=== PATIENT | male | born 1955 | race Caucasian/White ===

== ENCOUNTER → 2016-12-12 | Outpatient (CLI) | payer BC ==
[~2016-12-12] MED LIST: CYM/30 PO; GABA-113 PO; HYDR-3983 PO; OMEP40CA41 PO; SERT-234 PO; SILD100T PO; TRAZ50TA35 PO; WLLSR/200 PO
[2016-12-12 19:36] LABS: ALT/SGPT 32 U/L (12-78); AST/SGOT 15 U/L (15-37); BLOOD UREA NITROGEN 12 mg/dl (7-18); BUN/CREATININE RATIO 10.6 (10-20); CALCIUM 9.5 mg/dl (8.5-10.1); CARBON DIOXIDE 30 mmol/L (21-32); CHLORIDE 105 mmol/L (98-107); GLUCOSE 107 mg/dl (70-99); POTASSIUM 4.1 mmol/L (3.5-5.1); SODIUM 140 mmol/L (136-145)
[2016-12-12 19:38] LABS: ALKALINE PHOSPHATASE 204 U/L (45-117)
== END | disposition home or self-care (01) ==
LOC: C.LABSPEC 18:02
PROVIDERS: ATTEND Family Medicine
DX: M54.2 Cervicalgia (principal); M79.2 Neuralgia and neuritis, unspecified; R53.1 Weakness

== ENCOUNTER → 2017-11-03 | Outpatient (CLI) | payer OTHER ==
[~2017-11-03] MED LIST changes: -SERT-234 PO; -WLLSR/200 PO
[2017-11-03 18:32] LABS: BASO % 0.4 %; BASO ABS # 0.04 K/uL (0-0.2); EOS % 2.3 %; EOS ABS # 0.21 K/uL (0-0.5); HEMATOCRIT 43.7 % (42-52); HEMOGLOBIN 15.3 g/dL (14.0-18.0); IG# 0.02 K/uL (0.00-0.02); LYMPH ABS # 2.31 K/uL (1.2-3.4); MEAN CORPUSCULAR HEMOGLOBIN 32.2 pg (25-34); MEAN PLATELET VOLUME 10.6 fL (7.4-10.4); MONO % 7.8 %; MONO ABS # 0.72 K/uL (0.11-0.59); NEUT % 64.3 %; NEUT ABS # 5.93 K/uL (1.4-6.5); PLATELET COUNT 320 K/uL (130-400); RED CELL DISTRIBUTION WIDTH SD 43.7 fL (36.4-46.3); WHITE BLOOD COUNT 9.23 K/uL (4.8-10.8)
[2017-11-03 20:05] LABS: POTASSIUM 3.9 mmol/L (3.5-5.1); SODIUM 139 mmol/L (136-145)
[2017-11-03 20:10] LABS: AST/SGOT 15 U/L (15-37)
[2017-11-03 20:11] LABS: ALBUMIN 3.6 gm/dl (3.4-5.0); ALKALINE PHOSPHATASE 90 U/L (45-117); ALT/SGPT 39 U/L (12-78); BLOOD UREA NITROGEN 17 mg/dl (7-18); CALCIUM 8.6 mg/dl (8.5-10.1); CARBON DIOXIDE 27 mmol/L (21-32); CREATININE 1.28 mg/dl (0.60-1.40); GLUCOSE 125 mg/dl (70-99); TOTAL PROTEIN 7.3 gm/dl (6.4-8.2)
== END | disposition home or self-care (01) ==
LOC: C.LABSPEC 17:50
PROVIDERS: ATTEND Family Medicine
DX: R10.11 Right upper quadrant pain (principal)

== ENCOUNTER 2020-06-20 18:12 | Inpatient (IN) ==
[2020-06-20] MEDS ORDERED: guaiFENesin 600 MG TABCR PO STA (18:46)
[2020-06-20] MEDS ORDERED: ALBUTEROL HFA 8 GM INHALER INH ONE (18:46)
[2020-06-20] MEDS ORDERED: DEXAMETHASONE SOD INJ 10 MG/ML VIAL IV ONE (18:46)
[2020-06-20] MEDS ORDERED: SODIUM CHLORIDE 0.9% 1000ML 1,000 ML IV ONE (18:49)
[2020-06-20 18:54] LABS: Basophils # (auto) 0.04 K/uL (0-0.2); Basophils % (auto) 0.4 %; Eosinophils # (auto) 0.15 K/uL (0-0.5); Eosinophils % (auto) 1.7 %; Hematocrit (blood only) 48.1 % (42-52); Immature Granulocytes # (auto) 0.01 K/uL (0.00-0.02); Immature Granulocytes % (auto) 0.1 %; Mean Corpuscular Hemoglobin 31.6 pg (25-34); Mean Corpuscular Hgb Conc 33.3 g/dL (32-36); Mean Corpuscular Volume 94.9 fL (80-100); Mean Platelet Volume 10.1 fL (7.4-10.4); Monocytes # (auto) 0.76 K/uL (0.11-0.59); Monocytes % (auto) 8.5 %; Neutrophils # (auto) 4.65 K/uL (1.4-6.5); Neutrophils % (auto) 52.3 %; Platelet Count 391 K/uL (130-400); RDW Coefficient of Variation 13.5 % (11.5-14.5); RDW Standard Deviation 46.7 fL (36.4-46.3); Red Blood Count 5.07 M/uL (4.7-6.1); White Blood Count 8.91 K/uL (4.8-10.8)
[2020-06-20 19:06] LABS: Partial Thromboplastin Time 27.1 Seconds (21.0-31.0); Prothrombin Time 10.2 Seconds (9.0-12.0)
[2020-06-20 19:13] LABS: Alanine Aminotransferase 36 U/L (12-78); Albumin Level 3.8 gm/dl (3.4-5.0); Aspartate Aminotransferase 17 U/L (15-37); BUN Creatinine Ratio 17.7 (10-20); Blood Urea Nitrogen 23 mg/dl (7-18); Carbon Dioxide 29 mmol/L (21-32); Chloride 104 mmol/L (98-107); Creatinine Clr Calc Pharmacy 71.3 ml/min; Est GFR (African American) 69.7; Est GFR (Non-African American) 60.2; Glucose 96 mg/dl (70-99); Magnesium 2.3 mg/dl (1.8-2.4); Potassium 3.7 mmol/L (3.5-5.1); Sodium 139 mmol/L (136-145)
[2020-06-20 19:26] LABS: Albumin Globulin Ratio 0.9 (0.9-2); Alkaline Phosphatase 104 U/L (45-117); Bilirubin,Total 0.3 mg/dl (0.2-1); Globulin 4.3 gm/dl (2.5-4.0); NT Pro B Type Natriuretic Pept 49 pg/ml (0-900); Phosphorus 3.4 mg/dl (2.5-4.9); Total Protein 8.1 gm/dl (6.4-8.2); Troponin I < 0.015 ng/ml (0-0.045)
[2020-06-20 19:34] LABS: Base Excess VBG 1.8 mEq/L; Oxygen Saturation VBG 81.7 %; pH VBG 7.41 (7.36-7.41)
--- NOTE | 2020-06-20 19:40 | XRay Report ---
XR chest 1V portable HISTORY: 64 years-old Male stroke sx acute strokelike symptoms COMPARISON: Chest radiograph 09/30/2016 TECHNIQUE: Portable AP view of the chest FINDINGS: Cardiac silhouette is upper limits of normal in size. Lungs are hypoinflated. Mild bronchovascular cr owding with subsegmental bibasilar atelectasis. No pneumothorax, pleural effusion or overt pulmonary edema. Bones of the chest appear grossly intact. Cervical spinal fusion hardware. IMPRESSION: No acute process. ACT 112: Negative or not required by law. The above report was generated using voice recognition software. It may contain grammatical, syntax o r spelling errors. Electronically signed by: Alessio Ayala M.D. 06/20/2020 7:39 PM
[2020-06-20 19:43] LABS: T4 Free Thyroxine 1.18 ng/dl (0.8-1.6)
[2020-06-20 19:47] LABS: Lyme Ab IgG w/WB Rflx Negative (Negative); Lyme Ab IgM w/WB Rflx Negative (Negative)
--- NOTE | 2020-06-20 20:34 | Emergency Department Note ---
Impression & Plan Cerebrovascular accident, History of transient ischemic attack, Emphysema, unspecified ED Provider Note NAME: BRIA PEDERSON AGE: 64 SEX: M ARRIVES VIA: Walk-In INFORMANT: Patient, ED PROVIDER(S): Sandeep Gleason MD CHIEF COMPLAINT: Right facial weakness. Shortness of breath. PLAN: Disposition: Admit MEDICAL DECISION MAKING: The patient is a pleasant 64-year-old gentleman with a past medical history of TIA/CVA treated with TPA [facility] 2018, h/o afib s/p ablation, GERD, anxiety who presents emerged department accompanied by his concern for right-sided facial weakness and slurred speech that began yesterday afternoon which began abruptly and continued into today with question of some right hand weakness and fluctuating confusion. He also reports feeling a degree of shortness of breath and chest tightness. He denies any fevers, chills, cough, congestion, nausea, vomiting, diarrhea, urinary symptoms. He denies any known exposures to COVID-19. He denies any history of asthma though admits he has had imaging in the past that demonstrated evidence of COPD in the setting of a remote smoking history where he quit over 20 years ago. The patient's symptoms began yesterday afternoon he has not considered to be a TPA candidate and so stroke alert was not activated. On arrival the patient is anxious uncomfortable appearing with mild dyspnea but no acute distress, afebrile, blood pressure 170s/90s and vital signs otherwise stable. He appears clinically dry. He has a scant intermittent wheeze but is otherwise clear. He has subtle blunting of the right nasolabial fold at rest. However when asked to hold his lips together to blow out his cheeks the air leaks out of the left side of the mouth. He has no overt extremity weakness. His speech is fluent without dysarthria or word finding difficulty. He does exhibit mild confusion/difficulty with attention. EKG without overt acute ischemia. Chest x-ray negative for acute cardiopulmonary process. WBC, H/H and platelets within normal limits. VBG unremarkable. Chemistry without acidosis. BUN 23 consistent with the patient's clinically dry appearance. LFTs and electrolytes unremarkable. Troponin negative/undetectable. TSH within normal limits. Lyme screen was negative. COVID-19 RNA NAAT test was negative. CT of the head demonstrates remote lacunar infarcts in addition to 9 mm ill- defined hypodensity of the duran radiata/internal capsule left frontal lobe may reflect chronic microvascular ischemic disease versus age-indeterminate lacunar infarct. CTA head/neck demonstrates moderate luminal narrowing of the proximal aspect of the right M1 segment (similarly described in [facility] 2018 records) Additional mixed plaque of carotid bulbs and ICAs without high-grade stenosis. Note is made of development of carotid vertebrobasilar anastomosis with a persistent right-sided trigeminal artery. CTA of the chest negative for PE but demonstrates emphysema. Upon reevaluation the patient was feeling improved after IV fluid hydration, dexamethasone, Mucinex, albuterol MDI for bronchospastic component of COPD. His right lower facial droop is still present. But continues to speak fluently without dysarthria. I did review the findings with the patient and he and his partner at the bedside and they elaborated further that he has had stroke symptoms in the past and in fact was treated with TPA at [facility] and subsequently admitted to [facility]. He reports since then he admits he has been poorly compliant with recommendations [facility]. He admits that he was probably told to take an aspirin daily but he does not. Moreover he was told he should be on a statin but does not take it because they tend to give him muscle pains. He is agreeable with plan for admission. Of note, I was called to the patients room by RN for concern from the patient's partner that he was more confused than before and was sweating. At this time, he did appear slightly more confusion with worsened attention however he eventually was redirectable and would follow commands and answers questions, and was alert to place and situation. BSG 140s. EKG unchanged. MRI ordered. I reviewed with the patient and his partner that his symptoms are suspected to be related to evolving symptoms from patient's presume CVA. Given sx began yesterday afternoon, not a candidate for TPA. Case was discussed with Dr. Heaton, [facility] hospitalist, who will evaluate the patient for admission. Triage Nursing notes reviewed and agree them. Prior medical records reviewed Vital Signs: reviewed and remarkable for HTN. Differential diagnosis: Infection, dehydration, metabolic abnormality, hypo/hyperglycemia, electrolyte disturbance, anemia, hypoxia, cardiac sources, intracerebral event, toxicologic, neurologic, as well as other pathologies. ER treatment provided: See below. Diagnostics interpreted by me: ECG: Sinus rhythm with first-degree AV block, 80 bpm, no ectopy, no overt ST elevation or depression, QTC 426, QRS 76. Cardiac Monitoring: An order for continuous cardiac monitoring was placed and demonstrated Sinus rhythm with first-degree AV block, 80 bpm, no ectopy. Laboratory studies: See below Imaging studies: XR chest 1V portable HISTORY: 64 years-old Male stroke sx acute strokelike symptoms COMPARISON: Chest radiograph 09/30/2016 TECHNIQUE: Portable AP view of the chest FINDINGS: Cardiac silhouette is upper limits of normal in size. Lungs are hypoinflated. Mild bronchovascular crowding with subsegmental bibasilar atelectasis. No pneumothorax, pleural effusion or overt pulmonary edema. Bones of the chest appear grossly intact. Cervical spinal fusion hardware. IMPRESSION: No acute process. CT head/brain wo con CLINICAL HISTORY: 64 years-old Male with Stroke evaluation . Acutely altered mental status with strokelike symptoms. Acute shortness of breath. TECHNIQUE: Multiple axial CT images of the head were obtained without contrast. A dose lowering technique was utilized adhering to the principles of ALARA. COMPARISON: CTA of the head and neck of same day FINDINGS: No acute intracranial hemorrhage, midline shift, intracranial mass, hydr ocephalus, territorial ischemia or abnormal extra-axial collection. Age-related involutional changes. Remote appearing lacunar infarcts of the duran radiata, right caudate nucleus and internal capsules. Patchy white matter hypodensities suggest chronic microvascular ischemic disease. 9 mm ill-defined hypodensity of the duran radiata/internal capsule left frontal lobe. The calvarium is intact. The paranasal sinuses, mastoid air cells, and middle ear cavities are clear. IMPRESSION: 1. No acute intracranial hemorrhage or acute territorial infarct. 2. Remote appearing lacunar infarcts as above. 3. 9 mm ill-defined hypodensity of the duran radiata/internal capsule left frontal lobe may reflect chronic microvascular ischemic disease versus age- indeterminate lacunar infarct. -- CT angio neck with con, CT angio head w con CLINICAL HISTORY: 64 years-old Male with Stroke evaluation. Acute strokelike symptoms COMPARISON STUDY: Head CT of same day TECHNIQUE: Following the IV administration of 1 20 mL of Optiray 320, CT angiogram of the head and neck was performed from the aortic arch to the skull apex. Images are reviewed in the axial, sagittal, and coronal planes. 3-D MIPS images are created and assessed. IV contrast was administered without complication. All measurements were calculated based on NASCET criteria. A dose lowering technique was utilized adhering to the principles of ALARA. FINDINGS: The imaged opacified pulmonary artery is unremarkable. Mixed plaque of the thoracic aortic arch with patency of the innominate and imaged subclavian arteries. Common carotid arteries are patent. Moderate mixed plaque of the carotid bulbs and proximal internal carotid arteries without high-grade stenosis. Mild calcified plaque of the supraclinoid segments. Mild multifocal luminal narrowing of the middle and anterior cerebral arteries. Short segment area of moderate stenosis involves the proximal right M1 segment, image 387 series 9. Developmentally diminutive vertebral arteries are patent. Basilar artery is also patent. 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 Bilateral posterior cerebral arteries are patent. No aneurysm, dissection, high-grade stenosis or proximal branch occlusion. There is no abnormal intracranial enhancement. Remote lacunar infarcts of the basal ganglia. Cerebral venous sinuses are patent. Emphysema. No pneumothorax. Soft tissues of the neck are unremarkable. Multilevel degenerative changes of the cervical spine. No acute fracture. Anterior plate and screw fusion with corpectomy changes at C4-C6. IMPRESSION: 1. Short segment area of moderate luminal narrowing involves the proximal aspect of the right M1 segment. 2. Mixed plaque of the carotid bulbs and proximal internal carotid arteries without high-grade stenosis. 3. 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 4. Emphysema. -- CT angio chest PE protocol CT DOSE: 1592.65 mGy.cm HISTORY: 64 years-old Male with PE. Acute shortness of breath with chest pain TECHNIQUE: Multiple CTA images of the chest were obtained after the intravenous administration of 120 ml Optiray 320. Coronal and sagittal MIPS were obtained from the axial data set and were submitted for review. All measurements were obtained according to NASCET criteria. A dose lowering technique was utilized adhering to the principles of ALARA. COMPARISON: CTA chest 09/30/2014 FINDINGS: CTA: Mild cardiomegaly. No pericardial effusion. Moderate coronary artery calcifications. Mild thickening of the left ventricular apex may reflect remote myocardial infarction. There is no thoracic aortic aneurysm or dissection. Mixed plaque of the thoracic aorta with patency of the imaged great vessels. The pulmonary arterial tree is opacified to the level of the proximal subsegmental branches and demonstrates no filling defects to suggest thromboembolic disease. CT CHEST: Unremarkable thyroid. There are a few mildly prominent mediastinal and slightly enlarged hilar lymph nodes measuring up to 10 mm which are nonspecific, favored to be reactive. No pneumothorax or pleural effusion. Inferior lung bases are not imaged. Mild to moderate emphysema. No overt pulmonary edema or airspace consoli dation typical for pneumonia. There are no suspicious pulmonary nodules or masses. Indeterminate 4 mm solid nodule left lower lobe, image 145 series 6. 3 mm solid nodule of the lingula. Both of these nodules appear unchanged from comparison and are likely benign. Central airways are patent. No acute process of the imaged upper abdomen. Hepatic steatosis. Unremarkable soft tissues. Degenerative changes of the shoulders and spine. No acute fracture or suspicious bone lesion. IMPRESSION: 1. No evidence of pulmonary thromboembolic disease. 2. Mild cardiomegaly with moderate coronary artery calcifications. 3. Emphysema. 4. Prominent mediastinal with mildly enlarged hilar lymph nodes, likely krzysztof ctive. 5. Hepatic steatosis. Consultation(s): Case was discussed with Dr. Heaton, [facility] hospitalist, who will evaluate the patient for admission. HPI: The patient is a pleasant 64-year-old gentleman with a past medical history of TIA/CVA treated with TPA [facility] 2018, h/o afib s/p ablation, GERD, anxiety who presents emerged department accompanied by his concern for right-sided facial weakness and slurred speech that began yesterday afternoon which began abruptly and continued into today with question of some right hand weakness and fluctuating confusion. He also reports feeling a degree of shortness of breath and chest tightness. He denies any fevers, chills, cough, congestion, nausea, vomiting, diarrhea, urinary symptoms. He denies any known exposures to COVID-19. He denies any history of asthma though admits he has had imaging in the past that demonstrated evidence of COPD in the setting of a remote smoking history where he quit over 20 years ago. The patient's symptoms began yesterday afternoon he has not considered to be a TPA candidate and so stroke alert was not activated. ROS: See above HPI for pertinent positives & negatives. A total of 10 systems reviewed and were otherwise negative. PAST MEDICAL HISTORY:See Below PAST SURGICAL HISTORY:See Below FAMILY HISTORY:See Below SOCIAL HISTORY:See Below HOME MEDICATIONS:See Below ALLERGIES:See Below VITALS:See Below PHYSICAL EXAMINATION: GENERAL: Awake, alert, fatigued/anxious-appearing, in no distress HENT: Normocephalic, atraumatic. Oropharynx with dry mucous membranes and otherwise unremarkable. EYES: Normal conjunctiva. Sclera non-icteric. EOMI. No nystamgus. PEARRL. NECK: Supple. No nuchal rigidity. FROM. No JVD. RESPIRATORY: Scant intermittent wheeze otherwise clear to auscultation. CARDIAC: Regular rate, normal rhythm. Extremities warm and well perfused. Pulses equal. ABDOMEN: Soft, non-distended. No tenderness to palpation. No rebound or guarding. No masses. RECTAL: Deferred. MUSCULOSKELETAL: Chest examination reveals no tenderness. The back is symmetrical on inspection without obvious abnormality. There is no CVA tenderness to palpation. No joint edema. LOWER EXTREMITIES: Calves are equal size bilaterally and non-tender. No edema. No discoloration. NEURO: A&Ox3 though with subtle disorientation/poor attention but doses follow commands. Subtle blunting of the right nasolabial fold at rest. However when asked to hold his lips together to blow out his cheeks the air leaks out of the left side of the mouth. Speech is fluent. 5/5 strength and SILT x 4 extremities. Cerebellar function intact including [id number], alternating palms, [id number]. SKIN: No rash or jaundice noted. ED COURSE: Critical Care: I have personally spent greater than 35 minutes of critical care time in the direct management of this patient. This includes bedside care, interpretation of diagnostic studies, and testing, discussion with consultants, patient, and family members, and other required patient management activities. This 35 minutes is in excess of all separately billable procedures. Sandeep Gleason MD Past Med/Surg History Medical History Atrial fibrillation s/p ablation Autoimmune hepatitis CAD (coronary artery disease) stent to diagonal branch in 2011 Cerebrovascular accident s/p tPA in 04/2018 Depression Emphysema, unspecified Hyperlipidemia Peptic ulcer disease Surgical History History of appendectomy History of cervical spinal surgery History of cholecystectomy History of heart artery stent Social History Smoking Status: Former smoker Preferred Language: Monegasque Feels Safe at Home: Yes Allergies Allergies Allergy/AdvReac Type Severity Reaction Status Date / Time morphine AdvReac Unknown vomiting Unverified 06/20/20 21:24 Home Meds Home Medications Medication Instructions Recorded Confirmed duloxetine 60 mg PO DAILY 06/20/20 06/20/20 ibuprofen 400 mg PO Q6H PRN 06/20/20 06/20/20 omeprazole 40 mg PO DAILY 06/20/20 06/20/20 Results & Data (ED) Vital Signs Vital Signs - 24 hr 06/20/20 18:14 06/20/20 18:27 06/20/20 18:30 Temperature 37.2 C Temperature Source Oral Pulse Rate 94 H 80 84 Pulse Rate [Left] Pulse Rate from SpO2 Sensor 84 Pulse Rhythm Regular Pulse Strength Normal Respiratory Rate 16 18 18 Respiratory Effort / Characteristics Non-Labored Respiratory Depth Normal Respiratory Pattern Regular Blood Pressure 172/98 H 164/90 H Blood Pressure [Left Arm] Blood Pressure Mean 122 111 Blood Pressure Mean [Left Arm] Blood Pressure Position Sitting Blood Pressure Position [Left Arm] Pulse Oximetry 99 97 Oxygen Delivery Method Room Air Sepsis Recent Fever Within 48 Hours No Sepsis New/Unexplained Change in Mental Status N/A Sepsis Action Taken by Nursing No Action Required 06/20/20 18:40 06/20/20 18:45 06/20/20 18:50 Temperature Temperature Source Pulse Rate 84 82 Pulse Rate [Left] 82 Pulse Rate from SpO2 Sensor 85 82 Pulse Rhythm Pulse Strength Respiratory Rate 24 20 20 Respiratory Effort / Characteristics Spontaneous Respiratory Depth Respiratory Pattern Blood Pressure Blood Pressure [Left Arm] 164/90 H Blood Pressure Mean Blood Pressure Mean [Left Arm] 114 Blood Pressure Position Blood Pressure Position [Left Arm] Lying Pulse Oximetry 99 98 98 Oxygen Delivery Method Room Air Sepsis Recent Fever Within 48 Hours Sepsis New/Unexplained Change in Mental Status Sepsis Action Taken by Nursing 06/20/20 19:00 06/20/20 19:10 06/20/20 19:14 Temperature Temperature Source Pulse Rate 82 80 82 Pulse Rate [Left] Pulse Rate from SpO2 Sensor 83 80 80 Pulse Rhythm Pulse Strength Respiratory Rate 19 19 17 Respiratory Effort / Characteristics Respiratory Depth Respiratory Pattern Blood Pressure 151/102 H Blood Pressure [Left Arm] Blood Pressure Mean 116 Blood Pressure Mean [Left Arm] Blood Pressure Position Blood Pressure Position [Left Arm] Pulse Oximetry 98 98 99 Oxygen Delivery Method Sepsis Recent Fever Within 48 Hours Sepsis New/Unexplained Change in Mental Status Sepsis Action Taken by Nursing 06/20/20 19:20 06/20/20 19:30 06/20/20 19:40 Temperature Temperature Source Pulse Rate 78 79 78 Pulse Rate [Left] Pulse Rate from SpO2 Sensor 78 79 79 Pulse Rhythm Pulse Strength Respiratory Rate 20 16 19 Respiratory Effort / Characteristics Respiratory Depth Respiratory Pattern Blood Pressure 133/88 Blood Pressure [Left Arm] Blood Pressure Mean 102 Blood Pressure Mean [Left Arm] Blood Pressure Position Blood Pressure Position [Left Arm] Pulse Oximetry 97 98 97 Oxygen Delivery Method Sepsis Recent Fever Within 48 Hours Sepsis New/Unexplained Change in Mental Status Sepsis Action Taken by Nursing 06/20/20 19:50 06/20/20 20:00 06/20/20 20:01 Temperature Temperature Source Pulse Rate 76 76 76 Pulse Rate [Left] Pulse Rate from SpO2 Sensor 77 76 76 Pulse Rhythm Pulse Strength Respiratory Rate 19 18 20 Respiratory Effort / Characteristics Respiratory Depth Respiratory Pattern Blood Pressure 149/84 H Blood Pressure [Left Arm] Blood Pressure Mean 108 Blood Pressure Mean [Left Arm] Blood Pressure Position Blood Pressure Position [Left Arm] Pulse Oximetry 96 97 98 Oxygen Delivery Method Sepsis Recent Fever Within 48 Hours Sepsis New/Unexplained Change in Mental Status Sepsis Action Taken by Nursing 06/20/20 20:10 06/20/20 20:20 06/20/20 20:45 Temperature Temperature Source Pulse Rate 79 81 Pulse Rate [Left] Pulse Rate from SpO2 Sensor 79 80 70 Pulse Rhythm Pulse Strength Respiratory Rate 20 22 Respiratory Effort / Characteristics Respiratory Depth Respiratory Pattern Blood Pressure Blood Pressure [Left Arm] Blood Pressure Mean Blood Pressure Mean [Left Arm] Blood Pressure Position Blood Pressure Position [Left Arm] Pulse Oximetry 97 96 98 Oxygen Delivery Method Sepsis Recent Fever Within 48 Hours Sepsis New/Unexplained Change in Mental Status Sepsis Action Taken by Nursing 06/20/20 20:50 06/20/20 21:00 06/20/20 21:01 Temperature Temperature Source Pulse Rate 71 69 71 Pulse Rate [Left] Pulse Rate from SpO2 Sensor 71 70 72 Pulse Rhythm Pulse Strength Respiratory Rate 17 18 19 Respiratory Effort / Characteristics Respiratory Depth Respiratory Pattern Blood Pressure 139/84 Blood Pressure [Left Arm] Blood Pressure Mean 92 Blood Pressure Mean [Left Arm] Blood Pressure Position Blood Pressure Position [Left Arm] Pulse Oximetry 99 97 98 Oxygen Delivery Method Sepsis Recent Fever Within 48 Hours Sepsis New/Unexplained Change in Mental Status Sepsis Action Taken by Nursing 06/20/20 21:10 06/20/20 21:20 06/20/20 21:30 Temperature Temperature Source Pulse Rate 70 72 69 Pulse Rate [Left] Pulse Rate from SpO2 Sensor 70 72 70 Pulse Rhythm Pulse Strength Respiratory Rate 20 24 21 Respiratory Effort / Characteristics Respiratory Depth Respiratory Pattern Blood Pressure 150/96 H Blood Pressure [Left Arm] Blood Pressure Mean 125 Blood Pressure Mean [Left Arm] Blood Pressure Position Blood Pressure Position [Left Arm] Pulse Oximetry 97 97 97 Oxygen Delivery Method Sepsis Recent Fever Within 48 Hours Sepsis New/Unexplained Change in Mental Status Sepsis Action Taken by Nursing 06/20/20 21:31 06/20/20 21:40 06/20/20 21:50 Temperature Temperature Source Pulse Rate 69 71 74 Pulse Rate [Left] Pulse Rate from SpO2 Sensor 69 72 75 Pulse Rhythm Pulse Strength Respiratory Rate 19 19 22 Respiratory Effort / Characteristics Respiratory Depth Respiratory Pattern Blood Pressure Blood Pressure [Left Arm] Blood Pressure Mean Blood Pressure Mean [Left Arm] Blood Pressure Position Blood Pressure Position [Left Arm] Pulse Oximetry 97 97 98 Oxygen Delivery Method Sepsis Recent Fever Within 48 Hours Sepsis New/Unexplained Change in Mental Status Sepsis Action Taken by Nursing 06/20/20 22:00 06/20/20 22:01 06/20/20 22:10 Temperature Temperature Source Pulse Rate 75 73 69 Pulse Rate [Left] Pulse Rate from SpO2 Sensor 76 74 69 Pulse Rhythm Pulse Strength Respiratory Rate 21 20 18 Respiratory Effort / Characteristics Respiratory Depth Respiratory Pattern Blood Pressure 158/116 H Blood Pressure [Left Arm] Blood Pressure Mean 138 Blood Pressure Mean [Left Arm] Blood Pressure Position Blood Pressure Position [Left Arm] Pulse Oximetry 98 98 98 Oxygen Delivery Method Sepsis Recent Fever Within 48 Hours Sepsis New/Unexplained Change in Mental Status Sepsis Action Taken by Nursing 06/20/20 22:30 06/20/20 22:31 06/20/20 23:00 Temperature Temperature Source Pulse Rate 74 71 68 Pulse Rate [Left] Pulse Rate from SpO2 Sensor 74 71 69 Pulse Rhythm Pulse Strength Respiratory Rate 20 17 20 Respiratory Effort / Characteristics Respiratory Depth Respiratory Pattern Blood Pressure 159/111 H 151/89 H Blood Pressure [Left Arm] Blood Pressure Mean 119 104 Blood Pressure Mean [Left Arm] Blood Pressure Position Blood Pressure Position [Left Arm] Pulse Oximetry 98 98 98 Oxygen Delivery Method Sepsis Recent Fever Within 48 Hours Sepsis New/Unexplained Change in Mental Status Sepsis Action Taken by Nursing 06/20/20 23:01 Temperature Temperature Source Pulse Rate 71 Pulse Rate [Left] Pulse Rate from SpO2 Sensor 72 Pulse Rhythm Pulse Strength Respiratory Rate 22 Respiratory Effort / Characteristics Respiratory Depth Respiratory Pattern Blood Pressure Blood Pressure [Left Arm] Blood Pressure Mean Blood Pressure Mean [Left Arm] Blood Pressure Position Blood Pressure Position [Left Arm] Pulse Oximetry 98 Oxygen Delivery Method Sepsis Recent Fever Within 48 Hours Sepsis New/Unexplained Change in Mental Status Sepsis Action Taken by Nursing Laboratory Data Attestation: I reviewed the patient's lab results. Result diagrams: 06/20/20 18:30 06/20/20 18:30 Lab Results 06/20/20 06/20/20 06/20/20 Range/Units 18:30 18:30 18:30 WBC 8.91 (4.8-10.8) K/uL RBC 5.07 (4.7-6.1) M/uL Hgb 16.0 (14.0-18.0) g/dL Hct 48.1 (42-52) % MCV 94.9 (80-100) fL MCH 31.6 (25-34) pg MCHC 33.3 (32-36) g/dL RDW Std Deviation 46.7 H (36.4-46.3) fL RDW Coeff of Karli 13.5 (11.5-14.5) % Plt Count 391 (130-400) K/uL MPV 10.1 (7.4-10.4) fL Immature Gran % (Auto) 0.1 % Neut % (Auto) 52.3 % Lymph % (Auto) 37.0 % [place] % (Auto) 8.5 % Eos % (Auto) 1.7 % Baso % (Auto) 0.4 % Neut # (Auto) 4.65 (1.4-6.5) K/uL Lymph # (Auto) 3.30 (1.2-3.4) K/uL [place] # (Auto) 0.76 H (0.11-0.59) K/uL Eos # (Auto) 0.15 (0-0.5) K/uL Baso # (Auto) 0.04 (0-0.2) K/uL Immature Gran # (Auto) 0.01 (0.00-0.02) K/uL PT 10.2 (9.0-12.0) Seconds INR 1.0 (0.9-1.1) APTT 27.1 (21.0-31.0) Seconds PTT Ratio 1.0 VBG pH (7.36-7.41) VBG pCO2 (38-50) mmHg VBG pO2 mmHg VBG HCO3 mmol/L VBG O2 Saturation % VBG Base Excess mEq/L Barometric Pressure mm/Hg Sodium 139 (136-145) mmol/L Potassium 3.7 (3.5-5.1) mmol/L Chloride 104 (98-107) mmol/L Carbon Dioxide 29 (21-32) mmol/L Anion Gap 5.0 (3-11) BUN 23 H (7-18) mg/dl Creatinine 1.27 (0.6-1.4) mg/dl Est Cr Clr Drug Dosing 71.3 ml/min Est GFR ( Amer) 69.7 Est GFR (Non-Af Amer) 60.2 BUN/Creatinine Ratio 17.7 (10-20) Glucose 96 (70-99) mg/dl POC Glucose (70-99) mg/dl Calcium 9.0 (8.5-10.1) mg/dl Phosphorus 3.4 (2.5-4.9) mg/dl Magnesium 2.3 (1.8-2.4) mg/dl Total Bilirubin 0.3 (0.2-1) mg/dl AST 17 (15-37) U/L ALT 36 (12-78) U/L Alkaline Phosphatase 104 (45-117) U/L Troponin I < 0.015 (0-0.045) ng/ml NT-Pro-B Natriuret Pep 49 (0-900) pg/ml Total Protein 8.1 (6.4-8.2) gm/dl Albumin 3.8 (3.4-5.0) gm/dl Globulin 4.3 H (2.5-4.0) gm/dl Albumin/Globulin Ratio 0.9 (0.9-2) TSH 4.520 H (0.300-4.500) uIu/ml Free T4 1.18 (0.8-1.6) ng/dl Specimen Hemolysis Ethyl Alcohol mg/dL (0-3) mg/dl Lyme Disease IgG Ab (Negative) Lyme Disease IgM Ab (Negative) COVID-19 Eval Order SARS-CoV-2, RNA, NAAT (NEGATIVE) 06/20/20 06/20/20 06/20/20 Range/Units 18:30 18:35 19:10 WBC (4.8-10.8) K/uL RBC (4.7-6.1) M/uL Hgb (14.0-18.0) g/dL Hct (42-52) % MCV (80-100) fL MCH (25-34) pg MCHC (32-36) g/dL RDW Std Deviation (36.4-46.3) fL RDW Coeff of Karli (11.5-14.5) % Plt Count (130-400) K/uL MPV (7.4-10.4) fL Immature Gran % (Auto) % Neut % (Auto) % Lymph % (Auto) % [place] % (Auto) % Eos % (Auto) % Baso % (Auto) % Neut # (Auto) (1.4-6.5) K/uL Lymph # (Auto) (1.2-3.4) K/uL [place] # (Auto) (0.11-0.59) K/uL Eos # (Auto) (0-0.5) K/uL Baso # (Auto) (0-0.2) K/uL Immature Gran # (Auto) (0.00-0.02) K/uL PT (9.0-12.0) Seconds INR (0.9-1.1) APTT (21.0-31.0) Seconds PTT Ratio VBG pH (7.36-7.41) VBG pCO2 (38-50) mmHg VBG pO2 mmHg VBG HCO3 mmol/L VBG O2 Saturation % VBG Base Excess mEq/L Barometric Pressure mm/Hg Sodium (136-145) mmol/L Potassium (3.5-5.1) mmol/L Chloride (98-107) mmol/L Carbon Dioxide (21-32) mmol/L Anion Gap (3-11) BUN (7-18) mg/dl Creatinine (0.6-1.4) mg/dl Est Cr Clr Drug Dosing ml/min Est GFR ( Amer) Est GFR (Non-Af Amer) BUN/Creatinine Ratio (10-20) Glucose (70-99) mg/dl POC Glucose 86 (70-99) mg/dl Calcium (8.5-10.1) mg/dl Phosphorus (2.5-4.9) mg/dl Magnesium (1.8-2.4) mg/dl Total Bilirubin (0.2-1) mg/dl AST (15-37) U/L ALT (12-78) U/L Alkaline Phosphatase (45-117) U/L Troponin I (0-0.045) ng/ml NT-Pro-B Natriuret Pep (0-900) pg/ml Total Protein (6.4-8.2) gm/dl Albumin (3.4-5.0) gm/dl Globulin (2.5-4.0) gm/dl Albumin/Globulin Ratio (0.9-2) TSH (0.300-4.500) uIu/ml Free T4 (0.8-1.6) ng/dl Specimen Hemolysis Ethyl Alcohol mg/dL (0-3) mg/dl Lyme Disease IgG Ab Negative (Negative) Lyme Disease IgM Ab Negative (Negative) COVID-19 Eval Order [facility] SARS-CoV-2, RNA, NAAT (NEGATIVE) 06/20/20 06/20/20 06/20/20 Range/Units 19:10 19:12 19:12 WBC (4.8-10.8) K/uL RBC (4.7-6.1) M/uL Hgb (14.0-18.0) g/dL Hct (42-52) % MCV (80-100) fL MCH (25-34) pg MCHC (32-36) g/dL RDW Std Deviation (36.4-46.3) fL RDW Coeff of Karli (11.5-14.5) % Plt Count (130-400) K/uL MPV (7.4-10.4) fL Immature Gran % (Auto) % Neut % (Auto) % Lymph % (Auto) % [place] % (Auto) % Eos % (Auto) % Baso % (Auto) % Neut # (Auto) (1.4-6.5) K/uL Lymph # (Auto) (1.2-3.4) K/uL [place] # (Auto) (0.11-0.59) K/uL Eos # (Auto) (0-0.5) K/uL Baso # (Auto) (0-0.2) K/uL Immature Gran # (Auto) (0.00-0.02) K/uL PT (9.0-12.0) Seconds INR (0.9-1.1) APTT (21.0-31.0) Seconds PTT Ratio VBG pH 7.41 (7.36-7.41) VBG pCO2 44 (38-50) mmHg VBG pO2 48 mmHg VBG HCO3 27 mmol/L VBG O2 Saturation 81.7 % VBG Base Excess 1.8 mEq/L Barometric Pressure 740.3 mm/Hg Sodium (136-145) mmol/L Potassium (3.5-5.1) mmol/L Chloride (98-107) mmol/L Carbon Dioxide (21-32) mmol/L Anion Gap (3-11) BUN (7-18) mg/dl Creatinine (0.6-1.4) mg/dl Est Cr Clr Drug Dosing ml/min Est GFR ( Amer) Est GFR (Non-Af Amer) BUN/Creatinine Ratio (10-20) Glucose (70-99) mg/dl POC Glucose (70-99) mg/dl Calcium (8.5-10.1) mg/dl Phosphorus (2.5-4.9) mg/dl Magnesium (1.8-2.4) mg/dl Total Bilirubin (0.2-1) mg/dl AST (15-37) U/L ALT (12-78) U/L Alkaline Phosphatase (45-117) U/L Troponin I (0-0.045) ng/ml NT-Pro-B Natriuret Pep (0-900) pg/ml Total Protein (6.4-8.2) gm/dl Albumin (3.4-5.0) gm/dl Globulin (2.5-4.0) gm/dl Albumin/Globulin Ratio (0.9-2) TSH (0.300-4.500) uIu/ml Free T4 (0.8-1.6) ng/dl Specimen Hemolysis Ethyl Alcohol mg/dL < 3.0 (0-3) mg/dl Lyme Disease IgG Ab (Negative) Lyme Disease IgM Ab (Negative) COVID-19 Eval Order SARS-CoV-2, RNA, NAAT NEGATIVE (NEGATIVE) 06/20/20 Range/Units 22:57 WBC (4.8-10.8) K/uL RBC (4.7-6.1) M/uL Hgb (14.0-18.0) g/dL Hct (42-52) % MCV (80-100) fL MCH (25-34) pg MCHC (32-36) g/dL RDW Std Deviation (36.4-46.3) fL RDW Coeff of Karli (11.5-14.5) % Plt Count (130-400) K/uL MPV (7.4-10.4) fL Immature Gran % (Auto) % Neut % (Auto) % Lymph % (Auto) % [place] % (Auto) % Eos % (Auto) % Baso % (Auto) % Neut # (Auto) (1.4-6.5) K/uL Lymph # (Auto) (1.2-3.4) K/uL [place] # (Auto) (0.11-0.59) K/uL Eos # (Auto) (0-0.5) K/uL Baso # (Auto) (0-0.2) K/uL Immature Gran # (Auto) (0.00-0.02) K/uL PT (9.0-12.0) Seconds INR (0.9-1.1) APTT (21.0-31.0) Seconds PTT Ratio VBG pH (7.36-7.41) VBG pCO2 (38-50) mmHg VBG pO2 mmHg VBG HCO3 mmol/L VBG O2 Saturation % VBG Base Excess mEq/L Barometric Pressure mm/Hg Sodium (136-145) mmol/L Potassium (3.5-5.1) mmol/L Chloride (98-107) mmol/L Carbon Dioxide (21-32) mmol/L Anion Gap (3-11) BUN (7-18) mg/dl Creatinine (0.6-1.4) mg/dl Est Cr Clr Drug Dosing ml/min Est GFR ( Amer) Est GFR (Non-Af Amer) BUN/Creatinine Ratio (10-20) Glucose (70-99) mg/dl POC Glucose 147 H (70-99) mg/dl Calcium (8.5-10.1) mg/dl Phosphorus (2.5-4.9) mg/dl Magnesium (1.8-2.4) mg/dl Total Bilirubin (0.2-1) mg/dl AST (15-37) U/L ALT (12-78) U/L Alkaline Phosphatase (45-117) U/L Troponin I (0-0.045) ng/ml NT-Pro-B Natriuret Pep (0-900) pg/ml Total Protein (6.4-8.2) gm/dl Albumin (3.4-5.0) gm/dl Globulin (2.5-4.0) gm/dl Albumin/Globulin Ratio (0.9-2) TSH (0.300-4.500) uIu/ml Free T4 (0.8-1.6) ng/dl Specimen Hemolysis Ethyl Alcohol mg/dL (0-3) mg/dl Lyme Disease IgG Ab (Negative) Lyme Disease IgM Ab (Negative) COVID-19 Eval Order SARS-CoV-2, RNA, NAAT (NEGATIVE) Administered Medications Discontinued Medications Albuterol (Albuterol Hfa 8 Gm Inhaler) 2 puffs INH NOW ONE Stop: 06/20/20 18:47 Last Admin: 06/20/20 19:08 Dose: 2 puffs Documented by: [id number] Dexamethasone (Dexamethasone Sod Inj 10 Mg/Ml Vial) 10 mg IV NOW ONE Stop: 06/20/20 18:47 Last Admin: 06/20/20 19:08 Dose: 10 mg Documented by: [id number] Gadobutrol (Gadobutrol 65ml Vial) 10.6 ml IV ONCE ONE Stop: 06/21/20 00:44 Last Admin: 06/21/20 00:25 Dose: 10.6 ml Documented by: [id number] Guaifenesin (Guaifenesin 600 Mg Tabcr) 600 mg PO NOW STA Stop: 06/20/20 18:47 Last Admin: 06/20/20 19:08 Dose: 600 mg Documented by: [id number] Sodium Chloride (Nss 1000ml) 1,000 mls @ 999 mls/hr IV .Q1H1M ONE Stop: 06/20/20 19:49 Last Infusion: 06/20/20 20:32 Dose: 0 mls/hr Documented by: [id number] Admin: 11/17/20 19:08 Dose: 999 mls/hr Documented by: [id number] Ioversol (Optiray 320 125ml) 120 ml IV ONCE ONE Stop: 06/20/20 20:46 Last Admin: 06/20/20 20:45 Dose: 120 ml Documented by: [id number] Discharge Plan Visit Data Chief Complaint: Stroke/CVA Symptoms Stated Complaint: RT SIDED FACIAL DROOPING, LT ARM PAIN, CHEST PAIN ED Provider: Sandeep Gleason Discharge Problem: Cerebrovascular accident, History of transient ischemic attack, Emphysema, unspecified Patient Disposition: Admitted As Inpatient Discharge Instructions Interventions: ED Discharge Assessment Last Done: 06/21/20 00:02
[2020-06-20] MEDS ORDERED: OPTIRAY 320 125ml IV ONE (20:45)
--- NOTE | 2020-06-20 20:51 | CT Scan Report ---
CT head/brain wo con CLINICAL HISTORY: 64 years-old Male with Stroke evaluation . Acutely altered mental status with stro kelike symptoms. Acute shortness of breath. TECHNIQUE: Multiple axial CT images of the head were obtained without contrast. A dose lowering tech nique was utilized adhering to the principles of ALARA. COMPARISON: CTA of the head and neck of same day FINDINGS: No acute intracranial hemorrhage, midline shift, intracranial mass, hydrocephalus, territorial ischem ia or abnormal extra-axial collection. Age-related involutional changes. Remote appearing lacunar inf arcts of the duran radiata, right caudate nucleus and internal capsules. Patchy white matter hypoden sities suggest chronic microvascular ischemic disease. 9 mm ill-defined hypodensity of the duran rad iata/internal capsule left frontal lobe. The calvarium is intact. The paranasal sinuses, mastoid air cells, and middle ear cavities are clear . IMPRESSION: 1. No acute intracranial hemorrhage or acute territorial infarct. 2. Remote appearing lacunar infarcts as above. 3. 9 mm ill-defined hypodensity of the duran radiata/internal capsule left frontal lobe may reflect chronic microvascular ischemic disease versus age-indeterminate lacunar infarct. ACT 112: Negative or not required by law. The above report was generated using voice recognition software. It may contain grammatical, syntax o r spelling errors. Electronically signed by: Alessio Ayala M.D. 06/20/2020 8:50 PM
--- NOTE | 2020-06-20 21:07 | CT Scan Report ---
CT angio neck with con, CT angio head w con CLINICAL HISTORY: 64 years-old Male with Stroke evaluation. Acute strokelike symptoms COMPARISON STUDY: Head CT of same day TECHNIQUE: Following the IV administration of 1 20 mL of Optiray 320, CT angiogram of the head and ne ck was performed from the aortic arch to the skull apex. Images are reviewed in the axial, sagittal, and coronal planes. 3-D MIPS images are created and assessed. IV contrast was administered without co mplication. All measurements were calculated based on NASCET criteria. A dose lowering technique was utilized adhering to the principles of ALARA. FINDINGS: The imaged opacified pulmonary artery is unremarkable. Mixed plaque of the thoracic aortic arch with patency of the innominate and imaged subclavian arteries. Common carotid arteries are patent. Moderat e mixed plaque of the carotid bulbs and proximal internal carotid arteries without high-grade stenosi s. Mild calcified plaque of the supraclinoid segments. Mild multifocal luminal narrowing of the middl e and anterior cerebral arteries. Short segment area of moderate stenosis involves the proximal right M1 segment, image 387 series 9. Developmentally diminutive vertebral arteries are patent. Basilar artery is also patent. 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 Bilateral posterior cereb ral arteries are patent. No aneurysm, dissection, high-grade stenosis or proximal branch occlusion. T here is no abnormal intracranial enhancement. Remote lacunar infarcts of the basal ganglia. Cerebral venous sinuses are patent. Emphysema. No pneumothorax. Soft tissues of the neck are unremarkable. Multilevel degenerative change s of the cervical spine. No acute fracture. Anterior plate and screw fusion with corpectomy changes a t C4-C6. IMPRESSION: 1. Short segment area of moderate luminal narrowing involves the proximal aspect of the right M1 segm ent. 2. Mixed plaque of the carotid bulbs and proximal internal carotid arteries without high-grade stenos is. 3. 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 4. Emphysema. ACT 112: Negative or not required by law. The above report was generated using voice recognition software. It may contain grammatical, syntax o r spelling errors. Electronically signed by: Alessio Ayala M.D. 06/20/2020 9:06 PM
--- NOTE | 2020-06-20 21:14 | CT Scan Report ---
CT angio chest PE protocol CT DOSE: 1592.65 mGy.cm HISTORY: 64 years-old Male with PE. Acute shortness of breath with chest pain TECHNIQUE: Multiple CTA images of the chest were obtained after the intravenous administration of 120 ml Optiray 320. Coronal and sagittal MIPS were obtained from the axial data set and were submitted for review. All measurements were obtained according to NASCET criteria. A dose lowering technique w as utilized adhering to the principles of ALARA. COMPARISON: CTA chest 09/30/2014 FINDINGS: CTA: Mild cardiomegaly. No pericardial effusion. Moderate coronary artery calcifications. Mild thickening of the left ventricular apex may reflect remote myocardial infarction. There is no thoracic aortic an eurysm or dissection. Mixed plaque of the thoracic aorta with patency of the imaged great vessels. Th e pulmonary arterial tree is opacified to the level of the proximal subsegmental branches and demonst rates no filling defects to suggest thromboembolic disease. CT CHEST: Unremarkable thyroid. There are a few mildly prominent mediastinal and slightly enlarged hilar lymph nodes measuring up to 10 mm which are nonspecific, favored to be reactive. No pneumothorax or pleural effusion. Inferior lung bases are not imaged. Mild to moderate emphysema. No overt pulmonary edema o r airspace consolidation typical for pneumonia. There are no suspicious pulmonary nodules or masses. Indeterminate 4 mm solid nodule left lower lobe, image 145 series 6. 3 mm solid nodule of the lingula . Both of these nodules appear unchanged from comparison and are likely benign. Central airways are p atent. No acute process of the imaged upper abdomen. Hepatic steatosis. Unremarkable soft tissues. De generative changes of the shoulders and spine. No acute fracture or suspicious bone lesion. IMPRESSION: 1. No evidence of pulmonary thromboembolic disease. 2. Mild cardiomegaly with moderate coronary artery calcifications. 3. Emphysema. 4. Prominent mediastinal with mildly enlarged hilar lymph nodes, likely reactive. 5. Hepatic steatosis. ACT 112: Negative or not required by law. The above report was generated using voice recognition software. It may contain grammatical, syntax o r spelling errors. Electronically signed by: Alessio Ayala M.D. 06/20/2020 9:13 PM
[2020-06-20] MEDS ORDERED: SODIUM CHLORIDE 0.9% 1000ML 1,000 ML IV SCH (23:00)
--- NOTE | 2020-06-20 23:36 | History & Physical Report ---
Date of Service June 20, 2020 Assessment & Plan (1) Stroke-like symptoms: 64yo C male with history of prior CVA s.p tPA administration in 04/2018 presenting with >24 hours of neurological symptoms - right facial droop, confusion, slurred speech and RUE weakness. CT head with no acute hemorrhage or infarct, CTA head and neck with short segment area of moderate luminal narrowing involving the proximal aspect of right RI as well as mixed plaque of the carotid bulbs without high grade stenosis. ASA and Plavix administered in ER. -Admit to PCU -Neuro checks, NIHSS per protocol -Dysphagia screening -MRI obtained - read pending -Check 2D echo -check lipid panel and HgbA1C for risk stratification -Neurology consultation appreciated -Initiate Crestor 20mg po daily - patient with reported myalgias associated with Atorvastatin -Plavix 75mg po daily -ASA 81mg po daily -Patient with history of atrial fibrillation s/p ablation - currently in NSR - telemetry monitoring, ?outpatient monitoring to assess for AF Present on Admission?: Yes (2) CAD (coronary artery disease): History of CAD s/p stent placement. Troponin x 1 negative, EKG with no acute ischemic changes -ASA and Crestor as above -Patient may benefit from BB and Nathan/ARB therapy Present on Admission?: Yes (3) Depression: Chronic -Continue Duloxetine 60mg po daily Present on Admission?: Yes (4) Peptic ulcer disease: Chronic -Protonix 40mg po daily. Patient on Omeprazole at home Present on Admission?: Yes (5) Hyperlipidemia: Chronic -Check lipid panel -Crestor as above Present on Admission?: Yes (6) Autoimmune hepatitis: Patient with remote history of AIH, possible PBC. He was reportedly on Imuran then Cell Cept. Issues are currently stable and patient is not on any medications. He was being followed at [facility] in the past. LFTs WNL -Check ammonia level F/E/N - Heplock. Electrolytes WNL. Heart healthy diet as tolerated after dysphagia screening Ppx - SCDs Code - Full Dispo - Admit to PCU POC - Peg - [phone] Present on Admission?: Yes History of Present Illness Chief Complaint: stroke-like symptoms Primary Care Provider: Ashley Ross Faraz Han is a 64yo male with history of prior TIA/CVA, CAD s/p stent placement presenting with right facial droop, AMS x 1 day. Patient was visiting his daughter yesterday 06/19/20 and she noted that he was "off" - less interactive, slightly confused. He was on a video chat with his mother who noted a right facial droop and slurred speech. Symptoms persisted throughout the day, progressed to involve weakness in his right hand as well as not using his right arm and worsening confusion which ultimately prompted him to come to the ER. Dominic's girlfriend reports he was having some left sided chest pain as well and a headache prior to arrival. Patient presently with no complaints. He denies fever/chills/cough/SOB/chest pain/nausea/vomiting/diarrhea or constipation. No additional complaints at this time. ER Course: ASA 324, Plavix 300mg, ALbuterol, Dexamethasone 10mg IV, Guaifenesn 600mg, NSS Allergies Allergy/AdvReac Type Severity Reaction Status Date / Time morphine AdvReac Unknown vomiting Unverified 06/20/20 21:24 Home Medications Medication Instructions Recorded Confirmed Type duloxetine 60 mg PO DAILY 06/20/20 06/20/20 History ibuprofen 400 mg PO Q6H PRN 06/20/20 06/20/20 History omeprazole 40 mg PO DAILY 06/20/20 06/20/20 History Past Med/Surg History Medical History (Updated 06/21/20 @ 00:21 by Nida Heaton DO) Atrial fibrillation s/p ablation Autoimmune hepatitis CAD (coronary artery disease) stent to diagonal branch in 2011 Cerebrovascular accident s/p tPA in 04/2018 Depression Emphysema, unspecified Hyperlipidemia Peptic ulcer disease Surgical History (Updated 06/21/20 @ 00:00 by Nida Heaton DO) History of appendectomy History of cervical spinal surgery History of cholecystectomy History of heart artery stent Social History Smoking Status: Former smoker Preferred Language: Bahraini Feels Safe at Home: Yes Review of Systems Review of Systems: All systems reviewed & are unremarkable except as noted in HPI & below Physical Exam Physical Exam: General: patient resting comfortably, NAD, non-toxic in appearance, AA&O to person, location Skin: warm, dry, intact, no rashes or lesions HEENT: NC/AT, PERRL, EOMI, anicteric sclera, conjunctiva without injection, external ear normal to inspection and nontender, nares patent, moist mucus membranes, dentition intact, no oropharyngeal lesions, neck supple, trachea midline, no LAD, no thyromegaly, no JVD Heart: +S1/S2, regular, no m/r/g Lungs: equal air entry bilaterally, no rales/rhonchi/wheezes Abd: +BS, soft, NT/ND, no masses/organomegaly/ascites Ext: warm, 2+ pulses in UE/LE bilaterally, no clubbing/cyanosis or edema Neuro: patient awake, answering questions with some delay in word finding, slow speech clear and appropriate, +flattening of right nasolabial fold, mild right facial droop, +mild weakness of RUE 4/5 on die cast operator, flexion and extension of arm, +mild drift, strength 5/5 in bilateral LE, some difficulty with rapid alternating movement and finger to nose Results & Data Results & Data ([facility]) Vital Signs (Past 12 Hours) Vital Signs Temp Pulse Pulse Resp BP BP Pulse Ox 06/20/20 22:10 69 18 98 06/20/20 22:01 73 20 98 06/20/20 22:00 75 21 158/116 H 98 06/20/20 21:50 74 22 98 06/20/20 21:40 71 19 97 06/20/20 21:31 69 19 97 06/20/20 21:30 69 21 150/96 H 97 06/20/20 21:20 72 24 97 06/20/20 21:10 70 20 97 06/20/20 21:01 71 19 98 06/20/20 21:00 69 18 139/84 97 06/20/20 20:50 71 17 99 06/20/20 20:45 98 06/20/20 20:20 81 22 96 06/20/20 20:10 79 20 97 06/20/20 20:01 76 20 98 06/20/20 20:00 76 18 149/84 H 97 06/20/20 19:50 76 19 96 06/20/20 19:40 78 19 97 06/20/20 19:30 79 16 133/88 98 06/20/20 19:20 78 20 97 06/20/20 19:14 82 17 151/102 H 99 06/20/20 19:10 80 19 98 06/20/20 19:00 82 19 98 06/20/20 18:50 82 20 98 06/20/20 18:45 82 20 164/90 H 98 06/20/20 18:40 84 24 99 06/20/20 18:30 84 18 97 06/20/20 18:27 80 18 164/90 H 06/20/20 18:14 37.2 C 94 H 16 172/98 H 99 Laboratory Results Lab Results 06/20/20 06/20/20 06/20/20 Range/Units 18:30 18:30 18:30 WBC 8.91 (4.8-10.8) K/uL RBC 5.07 (4.7-6.1) M/uL Hgb 16.0 (14.0-18.0) g/dL Hct 48.1 (42-52) % MCV 94.9 (80-100) fL MCH 31.6 (25-34) pg MCHC 33.3 (32-36) g/dL RDW Std Deviation 46.7 H (36.4-46.3) fL RDW Coeff of Karli 13.5 (11.5-14.5) % Plt Count 391 (130-400) K/uL MPV 10.1 (7.4-10.4) fL Immature Gran % (Auto) 0.1 % Neut % (Auto) 52.3 % Lymph % (Auto) 37.0 % [place] % (Auto) 8.5 % Eos % (Auto) 1.7 % Baso % (Auto) 0.4 % Neut # (Auto) 4.65 (1.4-6.5) K/uL Lymph # (Auto) 3.30 (1.2-3.4) K/uL [place] # (Auto) 0.76 H (0.11-0.59) K/uL Eos # (Auto) 0.15 (0-0.5) K/uL Baso # (Auto) 0.04 (0-0.2) K/uL Immature Gran # (Auto) 0.01 (0.00-0.02) K/uL PT 10.2 (9.0-12.0) Seconds INR 1.0 (0.9-1.1) APTT 27.1 (21.0-31.0) Seconds PTT Ratio 1.0 VBG pH (7.36-7.41) VBG pCO2 (38-50) mmHg VBG pO2 mmHg VBG HCO3 mmol/L VBG O2 Saturation % VBG Base Excess mEq/L Barometric Pressure mm/Hg Sodium 139 (136-145) mmol/L Potassium 3.7 (3.5-5.1) mmol/L Chloride 104 (98-107) mmol/L Carbon Dioxide 29 (21-32) mmol/L Anion Gap 5.0 (3-11) BUN 23 H (7-18) mg/dl Creatinine 1.27 (0.6-1.4) mg/dl Est Cr Clr Drug Dosing 71.3 ml/min Est GFR ( Amer) 69.7 Est GFR (Non-Af Amer) 60.2 BUN/Creatinine Ratio 17.7 (10-20) Glucose 96 (70-99) mg/dl POC Glucose (70-99) mg/dl Calcium 9.0 (8.5-10.1) mg/dl Phosphorus 3.4 (2.5-4.9) mg/dl Magnesium 2.3 (1.8-2.4) mg/dl Total Bilirubin 0.3 (0.2-1) mg/dl AST 17 (15-37) U/L ALT 36 (12-78) U/L Alkaline Phosphatase 104 (45-117) U/L Troponin I < 0.015 (0-0.045) ng/ml NT-Pro-B Natriuret Pep 49 (0-900) pg/ml Total Protein 8.1 (6.4-8.2) gm/dl Albumin 3.8 (3.4-5.0) gm/dl Globulin 4.3 H (2.5-4.0) gm/dl Albumin/Globulin Ratio 0.9 (0.9-2) TSH 4.520 H (0.300-4.500) uIu/ml Free T4 1.18 (0.8-1.6) ng/dl Specimen Hemolysis Ethyl Alcohol mg/dL (0-3) mg/dl Lyme Disease IgG Ab (Negative) Lyme Disease IgM Ab (Negative) COVID-19 Eval Order SARS-CoV-2, RNA, NAAT (NEGATIVE) 06/20/20 06/20/20 06/20/20 Range/Units 18:30 18:35 19:10 WBC (4.8-10.8) K/uL RBC (4.7-6.1) M/uL Hgb (14.0-18.0) g/dL Hct (42-52) % MCV (80-100) fL MCH (25-34) pg MCHC (32-36) g/dL RDW Std Deviation (36.4-46.3) fL RDW Coeff of Karli (11.5-14.5) % Plt Count (130-400) K/uL MPV (7.4-10.4) fL Immature Gran % (Auto) % Neut % (Auto) % Lymph % (Auto) % [place] % (Auto) % Eos % (Auto) % Baso % (Auto) % Neut # (Auto) (1.4-6.5) K/uL Lymph # (Auto) (1.2-3.4) K/uL [place] # (Auto) (0.11-0.59) K/uL Eos # (Auto) (0-0.5) K/uL Baso # (Auto) (0-0.2) K/uL Immature Gran # (Auto) (0.00-0.02) K/uL PT (9.0-12.0) Seconds INR (0.9-1.1) APTT (21.0-31.0) Seconds PTT Ratio VBG pH (7.36-7.41) VBG pCO2 (38-50) mmHg VBG pO2 mmHg VBG HCO3 mmol/L VBG O2 Saturation % VBG Base Excess mEq/L Barometric Pressure mm/Hg Sodium (136-145) mmol/L Potassium (3.5-5.1) mmol/L Chloride (98-107) mmol/L Carbon Dioxide (21-32) mmol/L Anion Gap (3-11) BUN (7-18) mg/dl Creatinine (0.6-1.4) mg/dl Est Cr Clr Drug Dosing ml/min Est GFR ( Amer) Est GFR (Non-Af Amer) BUN/Creatinine Ratio (10-20) Glucose (70-99) mg/dl POC Glucose 86 (70-99) mg/dl Calcium (8.5-10.1) mg/dl Phosphorus (2.5-4.9) mg/dl Magnesium (1.8-2.4) mg/dl Total Bilirubin (0.2-1) mg/dl AST (15-37) U/L ALT (12-78) U/L Alkaline Phosphatase (45-117) U/L Troponin I (0-0.045) ng/ml NT-Pro-B Natriuret Pep (0-900) pg/ml Total Protein (6.4-8.2) gm/dl Albumin (3.4-5.0) gm/dl Globulin (2.5-4.0) gm/dl Albumin/Globulin Ratio (0.9-2) TSH (0.300-4.500) uIu/ml Free T4 (0.8-1.6) ng/dl Specimen Hemolysis Ethyl Alcohol mg/dL (0-3) mg/dl Lyme Disease IgG Ab Negative (Negative) Lyme Disease IgM Ab Negative (Negative) COVID[facility]19 [facility] SARS-CoV-2, RNA, NAAT (NEGATIVE) 06/20/20 06/20/20 06/20/20 Range/Units 19:10 19:12 19:12 WBC (4.8-10.8) K/uL RBC (4.7-6.1) M/uL Hgb (14.0-18.0) g/dL Hct (42-52) % MCV (80-100) fL MCH (25-34) pg MCHC (32-36) g/dL RDW Std Deviation (36.4-46.3) fL RDW Coeff of Karli (11.5-14.5) % Plt Count (130-400) K/uL MPV (7.4-10.4) fL Immature Gran % (Auto) % Neut % (Auto) % Lymph % (Auto) % [place] % (Auto) % Eos % (Auto) % Baso % (Auto) % Neut # (Auto) (1.4-6.5) K/uL Lymph # (Auto) (1.2-3.4) K/uL [place] # (Auto) (0.11-0.59) K/uL Eos # (Auto) (0-0.5) K/uL Baso # (Auto) (0-0.2) K/uL Immature Gran # (Auto) (0.00-0.02) K/uL PT (9.0-12.0) Seconds INR (0.9-1.1) APTT (21.0-31.0) Seconds PTT Ratio VBG pH 7.41 (7.36-7.41) VBG pCO2 44 (38-50) mmHg VBG pO2 48 mmHg VBG HCO3 27 mmol/L VBG O2 Saturation 81.7 % VBG Base Excess 1.8 mEq/L Barometric Pressure 740.3 mm/Hg Sodium (136-145) mmol/L Potassium (3.5-5.1) mmol/L Chloride (98-107) mmol/L Carbon Dioxide (21-32) mmol/L Anion Gap (3-11) BUN (7-18) mg/dl Creatinine (0.6-1.4) mg/dl Est Cr Clr Drug Dosing ml/min Est GFR ( Amer) Est GFR (Non-Af Amer) BUN/Creatinine Ratio (10-20) Glucose (70-99) mg/dl POC Glucose (70-99) mg/dl Calcium (8.5-10.1) mg/dl Phosphorus (2.5-4.9) mg/dl Magnesium (1.8-2.4) mg/dl Total Bilirubin (0.2-1) mg/dl AST (15-37) U/L ALT (12-78) U/L Alkaline Phosphatase (45-117) U/L Troponin I (0-0.045) ng/ml NT-Pro-B Natriuret Pep (0-900) pg/ml Total Protein (6.4-8.2) gm/dl Albumin (3.4-5.0) gm/dl Globulin (2.5-4.0) gm/dl Albumin/Globulin Ratio (0.9-2) TSH (0.300-4.500) uIu/ml Free T4 (0.8-1.6) ng/dl Specimen Hemolysis Ethyl Alcohol mg/dL < 3.0 (0-3) mg/dl Lyme Disease IgG Ab (Negative) Lyme Disease IgM Ab (Negative) COVID-19 Eval Order SARS-CoV-2, RNA, NAAT NEGATIVE (NEGATIVE) 06/20/20 Range/Units 22:57 WBC (4.8-10.8) K/uL RBC (4.7-6.1) M/uL Hgb (14.0-18.0) g/dL Hct (42-52) % MCV (80-100) fL MCH (25-34) pg MCHC (32-36) g/dL RDW Std Deviation (36.4-46.3) fL RDW Coeff of Karli (11.5-14.5) % Plt Count (130-400) K/uL MPV (7.4-10.4) fL Immature Gran % (Auto) % Neut % (Auto) % Lymph % (Auto) % [place] % (Auto) % Eos % (Auto) % Baso % (Auto) % Neut # (Auto) (1.4-6.5) K/uL Lymph # (Auto) (1.2-3.4) K/uL [place] # (Auto) (0.11-0.59) K/uL Eos # (Auto) (0-0.5) K/uL Baso # (Auto) (0-0.2) K/uL Immature Gran # (Auto) (0.00-0.02) K/uL PT (9.0-12.0) Seconds INR (0.9-1.1) APTT (21.0-31.0) Seconds PTT Ratio VBG pH (7.36-7.41) VBG pCO2 (38-50) mmHg VBG pO2 mmHg VBG HCO3 mmol/L VBG O2 Saturation % VBG Base Excess mEq/L Barometric Pressure mm/Hg Sodium (136-145) mmol/L Potassium (3.5-5.1) mmol/L Chloride (98-107) mmol/L Carbon Dioxide (21-32) mmol/L Anion Gap (3-11) BUN (7-18) mg/dl Creatinine (0.6-1.4) mg/dl Est Cr Clr Drug Dosing ml/min Est GFR ( Amer) Est GFR (Non-Af Amer) BUN/Creatinine Ratio (10-20) Glucose (70-99) mg/dl POC Glucose 147 H (70-99) mg/dl Calcium (8.5-10.1) mg/dl Phosphorus (2.5-4.9) mg/dl Magnesium (1.8-2.4) mg/dl Total Bilirubin (0.2-1) mg/dl AST (15-37) U/L ALT (12-78) U/L Alkaline Phosphatase (45-117) U/L Troponin I (0-0.045) ng/ml NT-Pro-B Natriuret Pep (0-900) pg/ml Total Protein (6.4-8.2) gm/dl Albumin (3.4-5.0) gm/dl Globulin (2.5-4.0) gm/dl Albumin/Globulin Ratio (0.9-2) TSH (0.300-4.500) uIu/ml Free T4 (0.8-1.6) ng/dl Specimen Hemolysis Ethyl Alcohol mg/dL (0-3) mg/dl Lyme Disease IgG Ab (Negative) Lyme Disease IgM Ab (Negative) COVID-19 Eval Order SARS-CoV-2, RNA, NAAT (NEGATIVE) Diagnostic Findings CT head/brain wo con CLINICAL HISTORY: 64 years-old Male with Stroke evaluation . Acutely altered mental status with strokelike symptoms. Acute shortness of breath. TECHNIQUE: Multiple axial CT images of the head were obtained without contrast. A dose lowering technique was utilized adhering to the principles of ALARA. COMPARISON: CTA of the head and neck of same day FINDINGS: No acute intracranial hemorrhage, midline shift, intracranial mass, hydrocephalus, territorial ischemia or abnormal extra-axial collection. Age- related involutional changes. Remote appearing lacunar infarcts of the duran radiata, right caudate nucleus and internal capsules. Patchy white matter hypod ensities suggest chronic microvascular ischemic disease. 9 mm ill-defined hypodensity of the duran radiata/internal capsule left frontal lobe. The calvarium is intact. The paranasal sinuses, mastoid air cells, and middle ear cavities are clear. IMPRESSION: 1. No acute intracranial hemorrhage or acute territorial infarct. 2. Remote appearing lacunar infarcts as above. 3. 9 mm ill-defined hypodensity of the duran radiata/internal capsule left frontal lobe may reflect chronic microvascular ischemic disease versus age- indeterminate lacunar infarct. ACT 112: Negative or not required by law. The above report was generated using voice recognition software. It may contain grammatical, syntax or spelling errors. Electronically signed by: Alessio Ayala M.D. 06/20/2020 8:50 PM Dictated: 06/20/202045Transcribed: 06/20/202045 --------- CT angio neck with con, CT angio head w con CLINICAL HISTORY: 64 years-old Male with Stroke evaluation. Acute strokelike symptoms COMPARISON STUDY: Head CT of same day TECHNIQUE: Following the IV administration of 1 20 mL of Optiray 320, CT angiogram of the head and neck was performed from the aortic arch to the skull apex. Images are reviewed in the axial, sagittal, and coronal planes. 3-D MIPS images are created and assessed. IV contrast was administered without complica tion. All measurements were calculated based on NASCET criteria. A dose lowering technique was utilized adhering to the principles of ALARA. FINDINGS: The imaged opacified pulmonary artery is unremarkable. Mixed plaque of the thoracic aortic arch with patency of the innominate and imaged subclavian arteries. Common carotid arteries are patent. Moderate mixed plaque of the carotid bulbs and proximal internal carotid arteries without high-grade stenosis. Mild calcified plaque of the supraclinoid segments. Mild multifocal luminal narrowing of the middle and anterior cerebral arteries. Short segment area of moderate stenosis involves the proximal right M1 segment, image 387 series 9. Developmentally diminutive vertebral arteries are patent. Basilar artery is also patent. 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 Bilateral posterior cerebral arteries are patent. No aneurysm, dissection, high-grade stenosis or proximal branch occlusion. There is no abnormal intracranial enhancement. Remote lacunar infarcts of the basal ganglia. Cerebral venous sinuses are patent. Emphysema. No pneumothorax. Soft tissues of the neck are unremarkable. Multi level degenerative changes of the cervical spine. No acute fracture. Anterior plate and screw fusion with corpectomy changes at C4-C6. IMPRESSION: 1. Short segment area of moderate luminal narrowing involves the proximal aspect of the right M1 segment. 2. Mixed plaque of the carotid bulbs and proximal internal carotid arteries without high-grade stenosis. 3. 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 4. Emphysema. ACT 112: Negative or not required by law. The above report was generated using voice recognition software. It may contain grammatical, syntax or spelling errors. Electronically signed by: Alessio Ayala M.D. 06/20/2020 9:06 PM Dictated: 06/20/202049Transcribed: 06/20/202056 CT angio neck with con, CT angio head w con CLINICAL HISTORY: 64 years-old Male with Stroke evaluation. Acute strokelike symptoms COMPARISON STUDY: Head CT of same day TECHNIQUE: Following the IV administration of 1 20 mL of Optiray 320, CT angiogram of the head and neck was performed from the aortic arch to the skull apex. Images are reviewed in the axial, sagittal, and coronal planes. 3-D MIPS images are created and assessed. IV contrast was administered without complication. All measurements were calculated based on NASCET criteria. A dose lowering technique was utilized adhering to the principles of ALARA. FINDINGS: The imaged opacified pulmonary artery is unremarkable. Mixed plaque of the thoracic aortic arch with patency of the innominate and imaged subclavian arteries. Common carotid arteries are patent. Moderate mixed plaque of the carotid bulbs and proximal internal carotid arteries without high-grade stenosis. Mild calcified plaque of the supraclinoid segments. Mild multifocal luminal narrowing of the middle and anterior cerebral arteries. Short segment area of moderate stenosis involves the proximal right M1 segment, image 387 series 9. Developmentally diminutive vertebral arteries are patent. Basilar artery is also patent. 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 Bilateral posterior cerebral arteries are patent. No aneurysm, dissection, high-grade stenosis or proximal branch occlusion. There is no abnormal intracranial enhancement. Remote lacunar infarcts of the basal ganglia. Cerebral venous sinuses are patent. Emphysema. No pneumothorax. Soft tissues of the neck are unremarkable. Multilevel degenerative changes of the cervical spine. No acute fracture. Ant erior plate and screw fusion with corpectomy changes at C4-C6. IMPRESSION: 1. Short segment area of moderate luminal narrowing involves the proximal aspect of the right M1 segment. 2. Mixed plaque of the carotid bulbs and proximal internal carotid arteries without high-grade stenosis. 3. 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 4. Emphysema. ACT 112: Negative or not required by law. The above report was generated using voice recognition software. It may contain grammatical, syntax or spelling errors. Electronically signed by: Alessio Ayala M.D. 06/20/2020 9:06 PM Dictated: 06/20/202049Transcribed: 06/20/202056 CT angio chest PE protocol CT DOSE: 1592.65 mGy.cm HISTORY: 64 years-old Male with PE. Acute shortness of breath with chest pain TECHNIQUE: Multiple CTA images of the chest were obtained after the intravenous administration of 120 ml Optiray 320. Coronal and sagittal MIPS were obtained from the axial data set and were submitted for review. All measurements were obtained according to NASCET criteria. A dose lowering technique was utilized adhering to the principles of ALARA. COMPARISON: CTA chest 09/30/2014 FINDINGS: CTA: Mild cardiomegaly. No pericardial effusion. Moderate coronary artery calcifications. Mild thickening of the left ventricular apex may reflect remote myocardial infarction. There is no thoracic aortic aneurysm or dissection. Mixed plaque of the thoracic aorta with patency of the imaged great vessels. The pulmonary arterial tree is opacified to the level of the proximal subsegmental branches and demonstrates no filling defects to suggest thromboembolic disease. CT CHEST: Unremarkable thyroid. There are a few mildly prominent mediastinal and slightly enlarged hilar lymph nodes measuring up to 10 mm which are nonspecific, favored to be reactive. No pneumothorax or pleural effusion. Inferior lung bases are not imaged. Mild to moderate emphysema. No overt pulmonary edema or airspace consolidation typical for pneumonia. There are no suspicious pulmonary nodules or masses. Indeterminate 4 mm solid nodule left lower lobe, image 145 series 6. 3 mm solid nodule of the lingula. Both of these nodules appear unchanged from comparison and are likely benign. Central airways are patent. No acute process of the imaged upper abdomen. Hepatic steatosis. Unremarkable soft tissues. Degenerative changes of the shoulders and spine. No acute fracture or suspicious bone lesion. IMPRESSION: 1. No evidence of pulmonary thromboembolic disease. 2. Mild cardiomegaly with moderate coronary artery calcifications. 3. Emphysema. 4. Prominent mediastinal with mildly enlarged hilar lymph nodes, likely reactive. 5. Hepatic steatosis. ACT 112: Negative or not required by law. The above report was generated using voice recognition software. It may contain grammatical, syntax or spelling errors. Electronically signed by: Alessio Ayala M.D. 06/20/2020 9:13 PM Dictated: 06/20/202105Transcribed: 06/20/202105 ------- XR chest 1V portable HISTORY: 64 years-old Male stroke sx acute strokelike symptoms COMPARISON: Chest radiograph 09/30/2016 TECHNIQUE: Portable AP view of the chest FINDINGS: Cardiac silhouette is upper limits of normal in size. Lungs are hypoinflated. Mild bronchovascular crowding with subsegmental bibasilar atelectasis. No pneumothorax, pleural effusion or overt pulmonary edema. Bones of the chest appear grossly intact. Cervical spinal fusion hardware. XR chest 1V portable HISTORY: 64 years-old Male stroke sx acute strokelike symptoms COMPARISON: Chest radiograph 09/30/2016 TECHNIQUE: Portable AP view of the chest FINDINGS: Cardiac silhouette is upper limits of normal in size. Lungs are hypoinflated. Mild bronchovascular crowding with subsegmental bibasilar atelectasis. No pneumothorax, pleural effusion or overt pulmonary edema. Bones of the chest appear grossly intact. Cervical spinal fusion hardware. IMPRESSION: No acute process. ACT 112: Negative or not required by law. The above report was generated using voice recognition software. It may contain grammatical, syntax or spelling errors. Care Time/CCT Total # of Minutes Spent Total Time Spent with Patient: Total time spent is greater than 50% in coordination of care (as documented) at patient's floor/unit and/or counseling patient: Coding Level of Care Code 94365 Initial Inpt Care Lvl 3 Diagnoses Stroke-like symptoms R29.90 CAD (coronary artery disease) I25.10 Coronary Disease-Associated Artery/Lesion type: [place] artery [place] vs. transplanted heart: [place] heart Associated angina: without angina Depression F32.9 Depression Type: major depressive disorder Major depression recurrence: unspecified whether recurrent Active/Remission status: remission status unspecified Peptic ulcer disease K27.9 Hyperlipidemia E78.5 Hyperlipidemia type: unspecified Autoimmune hepatitis K75.4 (1) Depression Depression Type: major depressive disorder Major depression recurrence: unspecified whether recurrent Active/Remission status: remission status unspecified Qualified Code(s): F32.9 - Major depressive disorder, single episode, unspecified (2) Hyperlipidemia Hyperlipidemia type: unspecified Qualified Code(s): E78.5 - Hyperlipidemia, unspecified (3) CAD (coronary artery disease) Coronary Disease-Associated Artery/Lesion type: [place] artery [place] vs. transplanted heart: [place] heart Associated angina: without angina Qualified Code(s): I25.10 - Atherosclerotic heart disease of [place] coronary artery without angina pectoris
[2020-06-20] MEDS ORDERED: ASPIRIN/ALUM/MAGNES/CAL CARB 325 MG TAB PO STA (23:44)
[2020-06-20] MEDS ORDERED: CLOPIDOGREL BISULFATE 300 MG TAB PO STA (23:52)
[2020-06-21] MEDS ORDERED: GADOBUTROL 65ML VIAL IV ONE (00:43)
[2020-06-21] MEDS ORDERED: ACETAMINOPHEN 325 MG TAB PO PRN (01:47)
[2020-06-21] MEDS ORDERED: ONDANSETRON INJ 2 MG/ML 2 ML VIAL IV PRN (01:47)
[2020-06-21 07:08] LABS: Eosinophils # (auto) 0.01 K/uL (0-0.5); Eosinophils % (auto) 0.1 %; Hematocrit (blood only) 44.4 % (42-52); Hemoglobin 14.9 g/dL (14.0-18.0); Immature Granulocytes # (auto) 0.01 K/uL (0.00-0.02); Immature Granulocytes % (auto) 0.1 %; Lymphocytes # (auto) 1.56 K/uL (1.2-3.4); Lymphocytes % (auto) 17.1 %; Mean Corpuscular Hemoglobin 31.6 pg (25-34); Mean Corpuscular Hgb Conc 33.6 g/dL (32-36); Mean Corpuscular Volume 94.1 fL (80-100); Mean Platelet Volume 9.9 fL (7.4-10.4); Monocytes # (auto) 0.08 K/uL (0.11-0.59); Monocytes % (auto) 0.9 %; Neutrophils # (auto) 7.48 K/uL (1.4-6.5); Neutrophils % (auto) 81.8 %; Platelet Count 347 K/uL (130-400); RDW Coefficient of Variation 13.2 % (11.5-14.5); RDW Standard Deviation 45.7 fL (36.4-46.3); Red Blood Count 4.72 M/uL (4.7-6.1); White Blood Count 9.14 K/uL (4.8-10.8)
--- NOTE | 2020-06-21 07:27 | Magnetic Resonance Report ---
Brain MRI WITH AND WITHOUT CONTRAST HISTORY: Right facial droop. stroke TECHNIQUE: Multiplanar multisequence MRI of the brain was performed both before and after the intrave nous administration of contrast. COMPARISON STUDY: Head CT 06/20/2020. FINDINGS: A 1.7 cm focus of restricted diffusion seen within the body of the left caudate lobe consis tent with an acute infarct. 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 Old l acunar infarct seen within the bilateral basal ganglia. No abnormal enhancement. The paranasal sinuse s are clear. The mastoid air cells are clear. The ventricles and sulci demonstrate mild age-related i nvolutional changes. Scattered foci of T2 hyperintensity seen within the periventricular and subcorti frankie white matter are nonspecific but suggestive of mild microvascular ischemic changes. The major vas cular flow voids at the skull base are well-maintained. IMPRESSION: An acute left basal ganglia infarct. Additional findings as described above. ACT 112: Negative or not required by law. Electronically signed by: Neville Anguiano M.D. 06/21/2020 7:25 AM
[2020-06-21 07:28] LABS: BUN Creatinine Ratio 17.8 (10-20); Calcium 9.4 mg/dl (8.5-10.1); Creatinine Clr Calc Pharmacy 74.1 ml/min; Est GFR (African American) 73.9; Est GFR (Non-African American) 63.8; Potassium 4.2 mmol/L (3.5-5.1)
[2020-06-21] MEDS: ASPIRIN 81 MG ECTAB PO SCH (08:23)
[2020-06-21] MEDS: DULoxetine HCL 60 MG CAP PO SCH (08:23)
[2020-06-21] MEDS: PANTOprazole 40 MG TAB PO SCH (08:23)
[2020-06-21] MEDS: ROSUVASTATIN CALCIUM 20 MG TAB PO SCH (08:23)
[2020-06-21] MEDS ORDERED: CLOPIDOGREL BISULFATE 75 MG TAB PO SCH (09:00)
[2020-06-21 09:22] LABS: Estimated Average Glucose 114 mg/dl; Hemoglobin A1C 5.6 % (4.5-5.6)
--- NOTE | 2020-06-21 09:35 | Hospitalist Progress Note ---
Date of Service June 21, 2020 Assessment & Plan (1) CVA (cerebral vascular accident): 64yo C male with history of prior CVA s.p tPA administration in 04/2018 presenting with >24 hours of neurological symptoms - right facial droop, confusion, slurred speech and RUE weakness. CT head with no acute hemorrhage or infarct, CTA head and neck with short segment area of moderate luminal narrowing involving the proximal aspect of right PA as well as mixed plaque of the carotid bulbs without high grade stenosis. ASA and Plavix administered in ER. * Admit to PCU -- has been sinus nini with 1st degree AV block, HRs in the 60s * Neurochecks, NIHSS per protocol * Dysphagia screen passed * Speech/PT/OT evals pending * 2D Echo -- LV systolic function normal, no regional wall motion abnormalities, borderline concentric LVH, EF 55-60%, no interarterial shunt * Lipid Panel with elevated triglycerides at 200 and cholesterol 280 (LDL 197, HDL 43) -- started on Crestor due to adverse reaction with atorvastatin in the past with myalgias * A1c 5.7 * Plavix 75mg, ASA 81mg daily but per Neuro will continue with ASA 81mg as patient was not on antiplatelet following previous CVA due to pt discontinuation at his own volition * Neurology consulted -- appreciate assistance Headache "thunderclap" and reported worse he has ever had this afternoon -->will obtain repeat CT Head -- after discussed with Dr. Richmond will add ESR/CRP for possible vasculitis and if no hemorrhage on repeat imaging would initiate verapamil 40mg BID and migraine cocktail with IV tylenol 1g Q8H Of note, patient with hx afib s/p ablation -- consider outpt monitoring for AF with holter monitor (2) CAD (coronary artery disease): * History of CAD s/p stent placement. Troponin x 1 negative, EKG with no acute ischemic changes * ASA and Crestor as above * Patient may benefit from BB and Nathan/ARB therapy (3) Depression: * Chronic * Continue Duloxetine 60mg po daily (4) Peptic ulcer disease: * Chronic * Protonix 40mg po daily. Patient on Omeprazole at home (5) Hyperlipidemia: * Chronic but discontinued atorvastatin due to myalgias. Lipid panel with elevated triglycerides and cholesterol as above * Crestor as above (6) Autoimmune hepatitis: * Patient with remote history of AIH, possible PBC. He was reportedly on Imuran then Cell Cept. Issues are currently stable and patient is not on any medications. He was being [facility] at [facility] in the past. LFTs WNL * Check ammonia wnl Updated partner Peg via telephone this morning POC - Peg - [phone] Dispo: CT Head pending (7) Atrial fibrillation: Hx of with ablation -- consider outpt holter to look for occult AF as above Admission and Anticipated Discharge Date Admission Date: June 20, 2020 Subjective Patient evaluated this morning and again this afternoon. This morning, patient feeling alright but still with some difficulty word finding and dysarthria. When asked about ASA following previous stroke he endorses he was to be on something but self discontinued. Discussed outside window for TPA at this time but that we are still awaiting PT/OT and may need some rehab at discharge. Patient recently lost insurance last year and dose have benefits through [facility] per long time partner Peg and will need to establish care at discharge. Cleared dysphagia screening and stated no issues with diet. No fever, chills, chest pain, shortness of breath, abdominal pain, n/v at this time or visual symptoms. This afternoon, patient reported headache, 7/10 with increase to 8/10 to the top of his head with radiation to the neck. Denied visual symptoms but noted to have increased blinking when attempting to focus. Decreased dysarthria but still with decreased response times. Decreased RUE strength with security field supervisor testing. Discussed repeating CT head at this time. Discussed with Neurology who was going into room after I left and agreed on repeat CT and will add ESR/CRP for possible vasculitis. If no ICH would initiated verapamil. Review of Systems Review of Systems: All systems reviewed & are unremarkable except as noted in HPI & below Physical Exam Constitutional: WD/WN, vitals as above no acute distress increased distress this afternoon with reported headache and appeared uncomfortable Eyes: + anicteric sclerae and PERRL increased blinking with any approachment ENMT: mmm flattening of nasolabial fold, R sided Neck: normal visual inspection and trachea midline Respiratory: normal respiratory effort, lungs clear to auscultation Cardiovascular: RRR, no murmur, no edema Gastrointestinal (Abdomen): normal bowel sounds, soft, nontender, no hepatosplenomegaly Musculoskeletal: Head/Neck/Chest: normocephalic and head atraumatic Skin: no rashes, warm and dry Neurologic: awake, alert and oriented but slow with answering questions difficulty with word finding at times decreased security field supervisor strength 4/5 RUE, 5/5 LUE. decreased sensation to light touch R face NVI [place]-heel without difficulty No pronator drift noted Results & Data Results & Data ([facility]) Vital Signs (Past 12 Hours) Vital Signs Temp Pulse Pulse Resp BP BP Pulse Ox 06/21/20 07:28 36.5 C 65 20 150/85 H 91 06/21/20 03:20 36.6 C 68 20 156/89 H 99 06/21/20 01:30 68 06/21/20 01:00 36.7 C 68 18 159/88 H 98 06/21/20 00:02 87 18 151/89 H 98 06/20/20 23:30 72 14 98 06/20/20 23:01 71 22 98 06/20/20 23:00 68 20 151/89 H 98 06/20/20 22:31 71 17 98 06/20/20 22:30 74 20 159/111 H 98 06/20/20 22:10 69 18 98 06/20/20 22:01 73 20 98 06/20/20 22:00 75 21 158/116 H 98 06/20/20 21:50 74 22 98 06/20/20 21:40 71 19 97 Laboratory Results 06/21/20 06/21/20 06/21/20 Range/Units 06:55 06:55 06:55 WBC 9.14 (4.8-10.8) K/uL RBC 4.72 (4.7-6.1) M/uL Hgb 14.9 (14.0-18.0) g/dL Hct 44.4 (42-52) % MCV 94.1 (80-100) fL MCH 31.6 (25-34) pg MCHC 33.6 (32-36) g/dL RDW Std Deviation 45.7 (36.4-46.3) fL RDW Coeff of Karli 13.2 (11.5-14.5) % Plt Count 347 (130-400) K/uL MPV 9.9 (7.4-10.4) fL Immature Gran % (Auto) 0.1 % Neut % (Auto) 81.8 % Lymph % (Auto) 17.1 % Morton % (Auto) 0.9 % Eos % (Auto) 0.1 % Baso % (Auto) 0.0 % Neut # (Auto) 7.48 H (1.4-6.5) K/uL Lymph # (Auto) 1.56 (1.2-3.4) K/uL Morton # (Auto) 0.08 L (0.11-0.59) K/uL Eos # (Auto) 0.01 (0-0.5) K/uL Baso # (Auto) 0.00 (0-0.2) K/uL Immature Gran # (Auto) 0.01 (0.00-0.02) K/uL PT (9.0-12.0) Seconds INR (0.9-1.1) APTT (21.0-31.0) Seconds PTT Ratio VBG pH (7.36-7.41) VBG pCO2 (38-50) mmHg VBG pO2 mmHg VBG HCO3 mmol/L VBG O2 Saturation % VBG Base Excess mEq/L Barometric Pressure mm/Hg Sodium 138 (136-145) mmol/L Potassium 4.2 (3.5-5.1) mmol/L Chloride 107 (98-107) mmol/L Carbon Dioxide 24 (21-32) mmol/L Anion Gap 7.0 (3-11) BUN 22 H (7-18) mg/dl Creatinine 1.21 (0.6-1.4) mg/dl Est Cr Clr Drug Dosing 74.1 ml/min Est GFR ( Amer) 73.9 Est GFR (Non-Af Amer) 63.8 BUN/Creatinine Ratio 17.8 (10-20) Glucose 151 H (70-99) mg/dl POC Glucose (70-99) mg/dl Estimat Average Glucose 114 mg/dl Hemoglobin A1c 5.6 (4.5-5.6) % Calcium 9.4 (8.5-10.1) mg/dl Phosphorus (2.5-4.9) mg/dl Magnesium (1.8-2.4) mg/dl Total Bilirubin (0.2-1) mg/dl AST (15-37) U/L ALT (12-78) U/L Alkaline Phosphatase (45-117) U/L Ammonia (11-32) umol/L Troponin I (0-0.045) ng/ml NT-Pro-B Natriuret Pep (0-900) pg/ml Total Protein (6.4-8.2) gm/dl Albumin (3.4-5.0) gm/dl Globulin (2.5-4.0) gm/dl Albumin/Globulin Ratio (0.9-2) Triglycerides 200 H (0-150) mg/dl Cholesterol 280 H (0-200) mg/dl LDL Cholesterol, Calc 197 mg/dl VLDL Cholesterol, Calc 40 mg/dl HDL Cholesterol 43 mg/dl Cholesterol/HDL Ratio 7 TSH (0.300-4.500) uIu/ml Free T4 (0.8-1.6) ng/dl Specimen Hemolysis Ethyl Alcohol mg/dL (0-3) mg/dl Lyme Disease IgG Ab (Negative) Lyme Disease IgM Ab (Negative) COVID-19 Eval Order SARS-CoV-2, RNA, NAAT (NEGATIVE) 06/21/20 06/20/20 06/20/20 Range/Units 06:55 22:57 19:12 WBC (4.8-10.8) K/uL RBC (4.7-6.1) M/uL Hgb (14.0-18.0) g/dL Hct (42-52) % MCV (80-100) fL MCH (25-34) pg MCHC (32-36) g/dL RDW Std Deviation (36.4-46.3) fL RDW Coeff of Karli (11.5-14.5) % Plt Count (130-400) K/uL MPV (7.4-10.4) fL Immature Gran % (Auto) % Neut % (Auto) % Lymph % (Auto) % Morton % (Auto) % Eos % (Auto) % Baso % (Auto) % Neut # (Auto) (1.4-6.5) K/uL Lymph # (Auto) (1.2-3.4) K/uL [place] # (Auto) (0.11-0.59) K/uL Eos # (Auto) (0-0.5) K/uL Baso # (Auto) (0-0.2) K/uL Immature Gran # (Auto) (0.00-0.02) K/uL PT (9.0-12.0) Seconds INR (0.9-1.1) APTT (21.0-31.0) Seconds PTT Ratio VBG pH 7.41 (7.36-7.41) VBG pCO2 44 (38-50) mmHg VBG pO2 48 mmHg VBG HCO3 27 mmol/L VBG O2 Saturation 81.7 % VBG Base Excess 1.8 mEq/L Barometric Pressure 740.3 mm/Hg Sodium (136-145) mmol/L Potassium (3.5-5.1) mmol/L Chloride (98-107) mmol/L Carbon Dioxide (21-32) mmol/L Anion Gap (3-11) BUN (7-18) mg/dl Creatinine (0.6-1.4) mg/dl Est Cr Clr Drug Dosing ml/min Est GFR ( Amer) Est GFR (Non-Af Amer) BUN/Creatinine Ratio (10-20) Glucose (70-99) mg/dl POC Glucose 147 H (70-99) mg/dl Estimat Average Glucose mg/dl Hemoglobin A1c (4.5-5.6) % Calcium (8.5-10.1) mg/dl Phosphorus (2.5-4.9) mg/dl Magnesium (1.8-2.4) mg/dl Total Bilirubin (0.2-1) mg/dl AST (15-37) U/L ALT (12-78) U/L Alkaline Phosphatase (45-117) U/L Ammonia 14.0 (11-32) umol/L Troponin I (0-0.045) ng/ml NT-Pro-B Natriuret Pep (0-900) pg/ml Total Protein (6.4-8.2) gm/dl Albumin (3.4-5.0) gm/dl Globulin (2.5-4.0) gm/dl Albumin/Globulin Ratio (0.9-2) Triglycerides (0-150) mg/dl Cholesterol (0-200) mg/dl LDL Cholesterol, Calc mg/dl VLDL Cholesterol, Calc mg/dl HDL Cholesterol mg/dl Cholesterol/HDL Ratio TSH (0.300-4.500) uIu/ml Free T4 (0.8-1.6) ng/dl Specimen Hemolysis Ethyl Alcohol mg/dL (0-3) mg/dl Lyme Disease IgG Ab (Negative) Lyme Disease IgM Ab (Negative) COVID-19 Eval Order SARS-CoV-2, RNA, NAAT (NEGATIVE) 06/20/20 06/20/20 06/20/20 Range/Units 19:12 19:10 19:10 WBC (4.8-10.8) K/uL RBC (4.7-6.1) M/uL Hgb (14.0-18.0) g/dL Hct (42-52) % MCV (80-100) fL MCH (25-34) pg MCHC (32-36) g/dL RDW Std Deviation (36.4-46.3) fL RDW Coeff of Karli (11.5-14.5) % Plt Count (130-400) K/uL MPV (7.4-10.4) fL Immature Gran % (Auto) % Neut % (Auto) % Lymph % (Auto) % Morton % (Auto) % Eos % (Auto) % Baso % (Auto) % Neut # (Auto) (1.4-6.5) K/uL Lymph # (Auto) (1.2-3.4) K/uL [place] # (Auto) (0.11-0.59) K/uL Eos # (Auto) (0-0.5) K/uL Baso # (Auto) (0-0.2) K/uL Immature Gran # (Auto) (0.00-0.02) K/uL PT (9.0-12.0) Seconds INR (0.9-1.1) APTT (21.0-31.0) Seconds PTT Ratio VBG pH (7.36-7.41) VBG pCO2 (38-50) mmHg VBG pO2 mmHg VBG HCO3 mmol/L VBG O2 Saturation % VBG Base Excess mEq/L Barometric Pressure mm/Hg Sodium (136-145) mmol/L Potassium (3.5-5.1) mmol/L Chloride (98-107) mmol/L Carbon Dioxide (21-32) mmol/L Anion Gap (3-11) BUN (7-18) mg/dl Creatinine (0.6-1.4) mg/dl Est Cr Clr Drug Dosing ml/min Est GFR ( Amer) Est GFR (Non-Af Amer) BUN/Creatinine Ratio (10-20) Glucose (70-99) mg/dl POC Glucose (70-99) mg/dl Estimat Average Glucose mg/dl Hemoglobin A1c (4.5-5.6) % Calcium (8.5-10.1) mg/dl Phosphorus (2.5-4.9) mg/dl Magnesium (1.8-2.4) mg/dl Total Bilirubin (0.2-1) mg/dl AST (15-37) U/L ALT (12-78) U/L Alkaline Phosphatase (45-117) U/L Ammonia (11-32) umol/L Troponin I (0-0.045) ng/ml NT-Pro-B Natriuret Pep (0-900) pg/ml Total Protein (6.4-8.2) gm/dl Albumin (3.4-5.0) gm/dl Globulin (2.5-4.0) gm/dl Albumin/Globulin Ratio (0.9-2) Triglycerides (0-150) mg/dl Cholesterol (0-200) mg/dl LDL Cholesterol, Calc mg/dl VLDL Cholesterol, Calc mg/dl HDL Cholesterol mg/dl Cholesterol/HDL Ratio TSH (0.300-4.500) uIu/ml Free T4 (0.8-1.6) ng/dl Specimen Hemolysis Ethyl Alcohol mg/dL < 3.0 (0-3) mg/dl Lyme Disease IgG Ab (Negative) Lyme Disease IgM Ab (Negative) COVID-19 Eval Order Covid19 [facility] SARS-CoV-2, RNA, NAAT NEGATIVE (NEGATIVE) 06/20/20 06/20/20 06/20/20 Range/Units 18:35 18:30 18:30 WBC (4.8-10.8) K/uL RBC (4.7-6.1) M/uL Hgb (14.0-18.0) g/dL Hct (42-52) % MCV (80-100) fL MCH (25-34) pg MCHC (32-36) g/dL RDW Std Deviation (36.4-46.3) fL RDW Coeff of Karli (11.5-14.5) % Plt Count (130-400) K/uL MPV (7.4-10.4) fL Immature Gran % (Auto) % Neut % (Auto) % Lymph % (Auto) % [place] % (Auto) % Eos % (Auto) % Baso % (Auto) % Neut # (Auto) (1.4-6.5) K/uL Lymph # (Auto) (1.2-3.4) K/uL [place] # (Auto) (0.11-0.59) K/uL Eos # (Auto) (0-0.5) K/uL Baso # (Auto) (0-0.2) K/uL Immature Gran # (Auto) (0.00-0.02) K/uL PT (9.0-12.0) Seconds INR (0.9-1.1) APTT (21.0-31.0) Seconds PTT Ratio VBG pH (7.36-7.41) VBG pCO2 (38-50) mmHg VBG pO2 mmHg VBG HCO3 mmol/L VBG O2 Saturation % VBG Base Excess mEq/L Barometric Pressure mm/Hg Sodium 139 (136-145) mmol/L Potassium 3.7 (3.5-5.1) mmol/L Chloride 104 (98-107) mmol/L Carbon Dioxide 29 (21-32) mmol/L Anion Gap 5.0 (3-11) BUN 23 H (7-18) mg/dl Creatinine 1.27 (0.6-1.4) mg/dl Est Cr Clr Drug Dosing 71.3 ml/min Est GFR ( Amer) 69.7 Est GFR (Non-Af Amer) 60.2 BUN/Creatinine Ratio 17.7 (10-20) Glucose 96 (70-99) mg/dl POC Glucose 86 (70-99) mg/dl Estimat Average Glucose mg/dl Hemoglobin A1c (4.5-5.6) % Calcium 9.0 (8.5-10.1) mg/dl Phosphorus 3.4 (2.5-4.9) mg/dl Magnesium 2.3 (1.8-2.4) mg/dl Total Bilirubin 0.3 (0.2-1) mg/dl AST 17 (15-37) U/L ALT 36 (12-78) U/L Alkaline Phosphatase 104 (45-117) U/L Ammonia (11-32) umol/L Troponin I < 0.015 (0-0.045) ng/ml NT-Pro-B Natriuret Pep 49 (0-900) pg/ml Total Protein 8.1 (6.4-8.2) gm/dl Albumin 3.8 (3.4-5.0) gm/dl Globulin 4.3 H (2.5-4.0) gm/dl Albumin/Globulin Ratio 0.9 (0.9-2) Triglycerides (0-150) mg/dl Cholesterol (0-200) mg/dl LDL Cholesterol, Calc mg/dl VLDL Cholesterol, Calc mg/dl HDL Cholesterol mg/dl Cholesterol/HDL Ratio TSH 4.520 H (0.300-4.500) uIu/ml Free T4 1.18 (0.8-1.6) ng/dl Specimen Hemolysis Ethyl Alcohol mg/dL (0-3) mg/dl Lyme Disease IgG Ab Negative (Negative) Lyme Disease IgM Ab Negative (Negative) COVID-19 Eval Order SARS-CoV-2, RNA, NAAT (NEGATIVE) 06/20/20 06/20/20 Range/Units 18:30 18:30 WBC 8.91 (4.8-10.8) K/uL RBC 5.07 (4.7-6.1) M/uL Hgb 16.0 (14.0-18.0) g/dL Hct 48.1 (42-52) % MCV 94.9 (80-100) fL MCH 31.6 (25-34) pg MCHC 33.3 (32-36) g/dL RDW Std Deviation 46.7 H (36.4-46.3) fL RDW Coeff of Karli 13.5 (11.5-14.5) % Plt Count 391 (130-400) K/uL MPV 10.1 (7.4-10.4) fL Immature Gran % (Auto) 0.1 % Neut % (Auto) 52.3 % Lymph % (Auto) 37.0 % Morton % (Auto) 8.5 % Eos % (Auto) 1.7 % Baso % (Auto) 0.4 % Neut # (Auto) 4.65 (1.4-6.5) K/uL Lymph # (Auto) 3.30 (1.2-3.4) K/uL Morton # (Auto) 0.76 H (0.11-0.59) K/uL Eos # (Auto) 0.15 (0-0.5) K/uL Baso # (Auto) 0.04 (0-0.2) K/uL Immature Gran # (Auto) 0.01 (0.00-0.02) K/uL PT 10.2 (9.0-12.0) Seconds INR 1.0 (0.9-1.1) APTT 27.1 (21.0-31.0) Seconds PTT Ratio 1.0 VBG pH (7.36-7.41) VBG pCO2 (38-50) mmHg VBG pO2 mmHg VBG HCO3 mmol/L VBG O2 Saturation % VBG Base Excess mEq/L Barometric Pressure mm/Hg Sodium (136-145) mmol/L Potassium (3.5-5.1) mmol/L Chloride (98-107) mmol/L Carbon Dioxide (21-32) mmol/L Anion Gap (3-11) BUN (7-18) mg/dl Creatinine (0.6-1.4) mg/dl Est Cr Clr Drug Dosing ml/min Est GFR ( Amer) Est GFR (Non-Af Amer) BUN/Creatinine Ratio (10-20) Glucose (70-99) mg/dl POC Glucose (70-99) mg/dl Estimat Average Glucose mg/dl Hemoglobin A1c (4.5-5.6) % Calcium (8.5-10.1) mg/dl Phosphorus (2.5-4.9) mg/dl Magnesium (1.8-2.4) mg/dl Total Bilirubin (0.2-1) mg/dl AST (15-37) U/L ALT (12-78) U/L Alkaline Phosphatase (45-117) U/L Ammonia (11-32) umol/L Troponin I (0-0.045) ng/ml NT-Pro-B Natriuret Pep (0-900) pg/ml Total Protein (6.4-8.2) gm/dl Albumin (3.4-5.0) gm/dl Globulin (2.5-4.0) gm/dl Albumin/Globulin Ratio (0.9-2) Triglycerides (0-150) mg/dl Cholesterol (0-200) mg/dl LDL Cholesterol, Calc mg/dl VLDL Cholesterol, Calc mg/dl HDL Cholesterol mg/dl Cholesterol/HDL Ratio TSH (0.300-4.500) uIu/ml Free T4 (0.8-1.6) ng/dl Specimen Hemolysis Ethyl Alcohol mg/dL (0-3) mg/dl Lyme Disease IgG Ab (Negative) Lyme Disease IgM Ab (Negative) COVID-19 Eval Order SARS-CoV-2, RNA, NAAT (NEGATIVE) Diagnostic Findings Chest CTA IMPRESSION: 1. No evidence of pulmonary thromboembolic disease. 2. Mild cardiomegaly with moderate coronary artery calcifications. 3. Emphysema. 4. Prominent mediastinal with mildly enlarged hilar lymph nodes, likely reactive. 5. Hepatic steatosis. Head CT IMPRESSION: 1. No acute intracranial hemorrhage or acute territorial infarct. 2. Remote appearing lacunar infarcts as above. 3. 9 mm ill-defined hypodensity of the duran radiata/internal capsule left frontal lobe may reflect chronic microvascular ischemic disease versus age-ind eterminate lacunar infarct. Head/Neck CTA IMPRESSION: 1. Short segment area of moderate luminal narrowing involves the proximal aspect of the right M1 segment. 2. Mixed plaque of the carotid bulbs and proximal internal carotid arteries without high-grade stenosis. 3. 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 4. Emphysema. CXR IMPRESSION: No acute process. MRI Brain FINDINGS: A 1.7 cm focus of restricted diffusion seen within the body of the left caudate lobe consistent with an acute infarct. 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 Old lacunar infarct seen within the bilateral basal ganglia. No abnormal enhancement. The paranasal sinuses are clear. The mastoid air cells are clear. The ventricles and sulci demonstrate mild age-related involutional changes. Scattered foci of T2 hyperintensity seen within the periventricular and subcortical white matter are nonspecific but suggestive of mild microvascular ischemic changes. The major vascular flow voids at the skull base are well-maintained. IMPRESSION: An acute left basal ganglia infarct. Additional findings as described above. Head CT REPEAT PG Care Time/CCT Total # of Minutes Spent Total Time Spent with Patient: Total time spent is greater than 50% in coordination of care (as documented) at patient's floor/unit and/or counseling patient: Coding Level of Care Code 10344 Subseq Hosp Care Lvl 3 Diagnoses CVA (cerebral vascular accident) I63.9 CAD (coronary artery disease) I25.10 Coronary Disease-Associated Artery/Lesion type: [place] artery [place] vs. transplanted heart: [place] heart Associated angina: without angina Depression F32.9 Depression Type: major depressive disorder Major depression recurrence: unspecified whether recurrent Active/Remission status: remission status unspecified Peptic ulcer disease K27.9 Hyperlipidemia E78.5 Hyperlipidemia type: unspecified Autoimmune hepatitis K75.4 Atrial fibrillation I48.91 (1) CAD (coronary artery disease) Coronary Disease-Associated Artery/Lesion type: [place] artery [place] vs. transplanted heart: [place] heart Associated angina: without angina Qualified Code(s): I25.10 - Atherosclerotic heart disease of [place] coronary artery witho ut angina pectoris (2) Depression Depression Type: major depressive disorder Major depression recurrence: unspecified whether recurrent Active/Remission status: remission status unspecified Qualified Code(s): F32.9 - Major depressive disorder, single episode, unspecified (3) Hyperlipidemia Hyperlipidemia type: unspecified Qualified Code(s): E78.5 - Hyperlipidemia, unspecified
--- NOTE | 2020-06-21 12:01 | Electrocardiogram Report ---
Test Reason : Blood Pressure : / mmHG Vent. Rate : 080 BPM Atrial Rate : 080 BPM P-R Int : 224 ms QRS Dur : 076 ms QT Int : 370 ms P-R-T Axes : 047 050 056 degrees QTc Int : 426 ms Sinus rhythm with 1st degree A-V block Otherwise normal ECG When compared with ECG of 16-NOV-2010 11:09, No significant change was found Confirmed by Usman Silva ([id number]) on 06/21/2020 12:00:48 PM Referred By: REFERRED SELF Confirmed By:Usman Silva
--- NOTE | 2020-06-21 12:07 | Electrocardiogram Report ---
Test Reason : Blood Pressure : / mmHG Vent. Rate : 067 BPM Atrial Rate : 067 BPM P-R Int : 254 ms QRS Dur : 076 ms QT Int : 394 ms P-R-T Axes : 052 -24 062 degrees QTc Int : 416 ms Sinus rhythm with 1st degree A-V block Otherwise normal ECG When compared with ECG of 20-JUN-2020 18:30, Questionable change in QRS axis Confirmed by Usman Silva ([id number]) on 06/21/2020 12:06:46 PM Referred By: REFERRED SELF Confirmed By:Usman Silva
--- NOTE | 2020-06-21 12:38 | XCELERA ---
[id number]
--- NOTE | 2020-06-21 13:33 | Neurology Consultation ---
Date of Consultation June 21, 2020 Assessment & Plan (1) Stroke: Faraz Han is a 64 yo man w/ PMH of Afib s/p ablation not on AC, h/o stroke s/p tPA in 2018, CAD, HLD, COPD, CAD s/p cardiac stents, prior tobacco abuse, depression, PUD and autoimmune hepatitis who p/t [facility] with acute onset of right facial weakness, dysarthria, confusion and possible RUE weakness. Symptom localization: left centrum semiovale/putamen Stroke mechanism: lacunar/lipohyalinosis Stroke WorkUp: - CT head: showed no hemorrhage, old infarcts in the right putamen/caudate head, left internal capsule, ?subacute infarct in the left genu of the internal capsule and likely arachnoid cyst in the right parafalcine frontal lobe - CTA head/neck: shows hypoplastic versus high-grade stenosis of bilateral vertebral arteries fed by a persistent right trigeminal artery, right HAZARDOUS MATERIAL SPECIALIST, mild plaque at the right carotid bifurcation without significant stenosis noted, mild to moderate multifocal narrowing of bilateral MCAs (most noticeable in the R M1), no LVO, aneurysm or other stenosis noted - MRI brain: shows subacute infarct in the left centrum semiovale extending down to the putamen - TTE: EF 55-60%, borderline LVH, no interatrial shunt, mild aortic sclerosis - Telemetry: pending - A1c: 5.6 - FLP: 197 - Troponin, TSH: negative, mildly elevated - check ESR/CRP to r/o vasculitis given thunderclap headache and vessel abnormalities noted above Stroke Management: - Acute treatment: ASA - Continuous cardiac monitoring, 30 day event monitor on discharge as outpatient if telemetry here unrevealing - Vitals, Neurochecks, NIHSS per unit routine - BP parameters: SBP CAP 180, start anti-hypertensives, IV Labetalol/Hydralazine PRN for CAP - Consult speech, PT, OT for supportive management - Will school guidance counselor concerning stroke education, smoking cessation, healthy diet, physical activity, weight loss - Follow up with PCP for assistance with outpatient goals (BP <130/80, LDL <70, A1c <7) - Follow up in neurology clinic in 6-8 weeks (with CHRISTIANE Alcantar) Secondary Stroke Prevention: - Antiplatelet: ASA 81mg po daily - Anticoagulation: Not indicated at this time - Statin: Atorvastatin 80mg daily Headache: - if no ICH, recommend starting verapamil 40mg bid (can increase as tolerated) and migraine cocktail with IV tylenol 1g q8h HTN: - BP parameters, as above - Goal of lowering BP to normotension over next 3-4 days FEN/GI: - Diet: NPO until cleared by Speech evaluation - Monitor lytes and replete PRN Glucose Control: - Sliding scale insulin and accuchecks per primary team to avoid hyperglycemia Thank you for this interesting consult. Plan of care was discussed with primary team. Please call with any questions. (2) Hyperlipidemia: (3) CAD (coronary artery disease): (4) Cerebrovascular accident: (5) Atrial fibrillation: History of Present Illness Attending Physician: Ady Singh MD History of Present Illness Faraz Han is a 64 yo man w/ PMH of Afib s/p ablation not on AC, h/o stroke s/p tPA in 2018, CAD, HLD, COPD, CAD s/p cardiac stents, prior tobacco abuse, depression, PUD and autoimmune hepatitis who p/t [facility] with acute onset of right facial weakness, dysarthria, confusion and possible RUE weakness. NURSE EMERGENCY the afternoon of 06/19/20. In the ED, pt afebrile, blood pressure 172/98, heart rate 94, respiratory rate 16, satting 90% on room air. Labs notable for WBC 8.91, hemoglobin 16.0, platelets 391, BMP unremarkable aside from creatinine 1.27, glucose 96, INR 1.0, calcium/magnesium/phosphorus within normal, LFTs within normal, troponin negative, TSH mildly elevated at 4.52 with normal free T4, unremarkable VBG, Covid negative, alcohol level less than 3, Lyme negative. Imaging independently reviewed. CT head showed no hemorrhage, old infarcts in the right putamen/caudate head, left internal capsule, ?subacute infarct in the left genu of the internal capsule and likely arachnoid cyst in the right parafalcine frontal lobe. CTA head and neck shows hypoplastic versus high-grade stenosis of bilateral vertebral arteries fed by a persistent right trigeminal artery, right HAZARDOUS MATERIAL SPECIALIST, mild plaque at the right carotid bifurcation without significant s tenosis noted, mild to moderate multifocal narrowing of bilateral MCAs (most noticeable in the R M1), no LVO, aneurysm or other stenosis noted. MRI brain shows subacute infarct in the left centrum semiovale extending down to the putamen. He was given aspirin and admitted for further work-up. On examination, he reports that he does not consistently take any antiplatelets at home despite his history of prior strokes. He reports ongoing numbness in his right face and RUE. He noted to staff right before interview that he was currently having the worst headache of his life. Going down shortly for repeat CTH to r/o ICH/SAH. Allergies Allergy/AdvReac Type Severity Reaction Status Date / Time morphine AdvReac Unknown vomiting Unverified 06/20/20 21:24 Home Medications Medication Instructions Recorded Confirmed Type duloxetine 60 mg PO DAILY 06/20/20 06/20/20 History ibuprofen 400 mg PO Q6H PRN 06/20/20 06/20/20 History omeprazole 40 mg PO DAILY 06/20/20 06/20/20 History Patient History Medical History Atrial fibrillation s/p ablation Autoimmune hepatitis CAD (coronary artery disease) stent to diagonal branch in 2011 Cerebrovascular accident s/p tPA in 04/2018 Depression Emphysema, unspecified Hyperlipidemia Peptic ulcer disease Surgical History History of appendectomy History of cervical spinal surgery History of cholecystectomy History of heart artery stent Social History Smoking Status: Former smoker Preferred Language: Slovenian Communication Ability: Effective Beliefs That Will Affect Care: None Current Living Situation: Significant Other Feels Safe at Home: Yes Assistive Devices: Glasses Review of Systems Review of Systems: 14 point review of systems completed and negative except as in HPI. Exam (Neuro) Physical Exam: General Exam: GEN: NAD, sitting/lying down in examination bed. HEENT: No conjunctival injection, no rhinorrhea. CV: RRR on monitor, no significant edema. PULM: Nonlabored respirations on room air. Neuro Exam: MS: Awake and Alert. Oriented to person, place, and date. Speech fluent and appropriate without dysarthria or paraphasic errors. Language intact including naming, comprehension, repetition. Cognition and memory grossly intact. Attention intact. No neglect. CN: Visual lipscomb full, + blink to threat bilaterally. No extinction to double simultaneous stimuli. Normal fundoscopic exam. PERRLA OU. EOMI without nystagmus. Facial sensation intact to LT. Facial muscles full and symmetric. Hearing intact to finger rub bilaterally. Uvula midline with symmetric palatal elevation. SCMs and shoulder shrug normal. Tongue midline. MOTOR: Normal bulk and tone. No pronator drift. BUE strength 5/5 at deltoids, biceps, triceps, wrist flexors and extensors, and finger flexors bilaterally. BLE strength 5/5 at iliopsoas, hamstrings, quadriceps, tibialis anterior, and gastrocnemius bilaterally. REFLEXES: 2+ at biceps, triceps, brachioradialis, 1+ patella, and trace Achilles bilaterally. Flexor plantar responses bilaterally. SENSORY: Intact to LT/vibration/temperature throughout except diminished in right face/RUE compared to the left side, no extinction to double simultaneous stimuli. COORDINATION: No dysmetria or ataxia on [id number] bilaterally. Normal Marie bilaterally. GAIT: Deferred due to physical status. NIH STROKE SCALE 1A. Level of Consciousness (0-3) = 0 1B. LOC Questions (0-2) = 0 1C. LOC Commands (0-2) = 0 2. Best Horizontal Gaze (0-2) = 0 3. Visual Lipscomb (0-3) = 0 4. Facial Palsy (0-3) = 0 5. Motor Arm Right (0-4) = 0 Left (0-4) = 0 6. Motor Leg Right (0-4) = 0 Left (0-4) = 0 7. Limb Ataxia (0-2) = 0 8. Sensory (0-2) = 1 9. Best Language (0-3) = 0 10. Dysarthria (0-2) = 0 11. Extinction and Inattention (0-2) = 0 NIHSS TOTAL = 1 Results & Data ([facility]) Vital Signs (Past 12 Hours) Vital Signs Temp Pulse Pulse Resp BP BP Pulse Ox 06/21/20 11:49 36.8 C 89 18 151/83 H 97 06/21/20 08:00 76 06/21/20 07:28 36.5 C 65 20 150/85 H 91 06/21/20 03:20 36.6 C 68 20 156/89 H 99 06/21/20 01:30 68 PG Care Time/CCT Total # of Minutes Spent Total Time Spent with Patient: Total time spent is greater than 50% in coordination of care (as documented) at patient's floor/unit and/or counseling patient: Coding Level of Care Code 86310 Office/OBS Consult Lvl 5 Diagnoses Stroke I63.9 Hyperlipidemia E78.5 Hyperlipidemia type: unspecified CAD (coronary artery disease) I25.10 Associated angina: without angina Coronary Disease-Associated Artery/Lesion type: [place] artery [place] vs. transplanted heart: [place] heart Cerebrovascular accident I63.9 Atrial fibrillation I48.91 (1) CAD (coronary artery disease) Associated angina: without angina Coronary Disease-Associated Artery/Lesion type: [place] artery [place] vs. transplanted heart: [place] heart Qualified Code(s): I25.10 - Atherosclerotic heart disease of [place] coronary artery without angina pectoris (2) Hyperlipidemia Hyperlipidemia type: unspecified Qualified Code(s): E78.5 - Hyperlipidemia, unspecified
--- NOTE | 2020-06-21 15:14 | CT Scan Report ---
HEAD CT NONCONTRAST CT DOSE: 537.48 mGy.cm HISTORY: stroke, worse headache TECHNIQUE: Multiaxial CT images of the head were performed without the use of intravenous contrast. A utomated exposure control was utilized for this study. A dose lowering technique was utilized adheri ng to the principles of ALARA. Comparison: Brain MRI 06/21/2020. Findings: The paranasal sinuses and mastoid air cells are clear. The calvarium and skull base are int act. White matter hypodensity is nonspecific but suggestive of microvascular ischemic change. The sotero tricles and sulci demonstrate mild age-related involutional changes. No significant change in the acu te left basal ganglia infarct involving the body of the left caudate lobe. This measures 1.6 cm in si ze. No evidence for hemorrhagic transformation. Old bilateral basal ganglia lacunar infarcts are also noted. Impression: No significant change in the acute left basal ganglia infarct. No evidence for hemorrhagic transforma tion. ACT 112: Negative or not required by law. Electronically signed by: Neville Anguiano M.D. 06/21/2020 3:12 PM
[2020-06-21] MEDS: ACETAMINOPHEN 500 MG TAB PO SCH (18:18)
[2020-06-21] MEDS: VERAPAMIL HCL 40 MG TAB PO SCH (21:10)
[2020-06-22] MEDS: ACETAMINOPHEN 500 MG TAB PO SCH ×3 (06:21→21:14)
[2020-06-22] MEDS ORDERED: SODIUM CHLORIDE 0.9% 1000ML 500 ML IV ONE (06:27)
[2020-06-22] MEDS: SODIUM CHLORIDE 0.9% 1000ML 1,000 ML IV SCH ×2 (07:47→19:47)
[2020-06-22] MEDS: VERAPAMIL HCL 40 MG TAB PO SCH ×2 (07:56→21:14)
[2020-06-22] MEDS: ROSUVASTATIN CALCIUM 20 MG TAB PO SCH (07:57)
[2020-06-22] MEDS: PANTOprazole 40 MG TAB PO SCH (07:57)
[2020-06-22] MEDS: DULoxetine HCL 60 MG CAP PO SCH (07:57)
[2020-06-22] MEDS: ASPIRIN 81 MG ECTAB PO SCH (07:57)
[2020-06-22 08:19] LABS: Basophils # (auto) 0.03 K/uL (0-0.2); Basophils % (auto) 0.3 %; Eosinophils # (auto) 0.07 K/uL (0-0.5); Eosinophils % (auto) 0.6 %; Hematocrit (blood only) 43.4 % (42-52); Hemoglobin 14.9 g/dL (14.0-18.0); Immature Granulocytes # (auto) 0.02 K/uL (0.00-0.02); Immature Granulocytes % (auto) 0.2 %; Lymphocytes # (auto) 3.62 K/uL (1.2-3.4); Lymphocytes % (auto) 33.5 %; Mean Corpuscular Hemoglobin 32.5 pg (25-34); Mean Corpuscular Hgb Conc 34.3 g/dL (32-36); Mean Corpuscular Volume 94.8 fL (80-100); Monocytes # (auto) 0.65 K/uL (0.11-0.59); Neutrophils # (auto) 6.43 K/uL (1.4-6.5); Neutrophils % (auto) 59.4 %; Platelet Count 308 K/uL (130-400); RDW Coefficient of Variation 13.6 % (11.5-14.5); RDW Standard Deviation 46.9 fL (36.4-46.3); Red Blood Count 4.58 M/uL (4.7-6.1); White Blood Count 10.82 K/uL (4.8-10.8)
[2020-06-22 08:46] LABS: BUN Creatinine Ratio 24.5 (10-20); Calcium 9.1 mg/dl (8.5-10.1); Creatinine Clr Calc Pharmacy 83.9 ml/min; Est GFR (African American) 85.8; Potassium 3.8 mmol/L (3.5-5.1)
[2020-06-22 13:56] LABS: Folate (Folic Acid) 7.7 ng/ml (>5.38)
--- NOTE | 2020-06-22 14:04 | Neurology Progress Note ---
Date of Service June 22, 2020 Assessment & Plan (1) Stroke: Faraz Han is a 64 yo man w/ PMH of Afib s/p ablation not on AC, h/o stroke s/p tPA in 2018, CAD, HLD, COPD, CAD s/p cardiac stents, prior tobacco abuse, depression, PUD and autoimmune hepatitis who p/t [facility] with acute onset of right facial weakness, dysarthria, confusion and possible RUE weakness. Symptom localization: left centrum semiovale/putamen Stroke mechanism: lacunar/lipohyalinosis Stroke WorkUp: - CT head: showed no hemorrhage, old infarcts in the right putamen/caudate head, left internal capsule, ?subacute infarct in the left genu of the internal capsule and likely arachnoid cyst in the right parafalcine frontal lobe - CTA head/neck: shows hypoplastic versus high-grade stenosis of bilateral vertebral arteries fed by a persistent right trigeminal artery, right LICENSED PRACTICAL NURSE, mild plaque at the right carotid bifurcation without significant stenosis noted, mild to moderate multifocal narrowing of bilateral MCAs (most noticeable in the R M1), no LVO, aneurysm or other stenosis noted - MRI brain: shows subacute infarct in the left centrum semiovale extending down to the putamen - TTE: EF 55-60%, borderline LVH, no interatrial shunt, mild aortic sclerosis - Telemetry: pending - A1c: 5.6 - FLP: 197 - Troponin, TSH: negative, mildly elevated - ESR elevated to 24/CRP WNL, unlikely to be vasculitis Stroke Management: - Acute treatment: ASA - Continuous cardiac monitoring, 30 day event monitor on discharge as outpatient if telemetry here unrevealing - Vitals, Neurochecks, NIHSS per unit routine - BP parameters: SBP CAP 180, start anti-hypertensives, IV Labetalol/Hydralazine PRN for CAP - Consult speech, PT, OT for supportive management - Will securities counselor concerning stroke education, smoking cessation, healthy diet, physical activity, weight loss - Follow up with PCP for assistance with outpatient goals (BP <130/80, LDL <70, A1c <7) - Follow up in neurology clinic in 6-8 weeks (with CHRISTIANE Alcantar) Secondary Stroke Prevention: - Antiplatelet: ASA 81mg po daily - Anticoagulation: Not indicated at this time - Statin: Atorvastatin 80mg daily Headache: - continue verapamil 40mg bid for HTN and headache treatment, migraine cocktail with IV tylenol 1g q8h prn while admitted HTN: - BP parameters, as above - Goal of lowering BP to normotension over next 3-4 days FEN/GI: - Diet: NPO until cleared by Speech evaluation - Monitor lytes and replete PRN Glucose Control: - Sliding scale insulin and accuchecks per primary team to avoid hyperglycemia Thank you for this interesting consult. Plan of care was discussed with primary team. Please call with any questions. (2) Hyperlipidemia: (3) CAD (coronary artery disease): (4) Cerebrovascular accident: (5) Atrial fibrillation: Admission and Anticipated Discharge Date Admission Date: June 20, 2020 Subjective NAEs overnight. Feels much better today. Reports symptoms are about 80% cleared at this point. Reported severe headache yesterday afternoon. Repeat CTH stable, no hemorrhage noted, evolving left putamen infarct. Started on verapamil for headache/BP. Review of Systems Review of Systems: 14 point review of systems completed and negative except as in HPI. Results & Data ([facility]) Vital Signs (Past 12 Hours) Vital Signs Temp Pulse Resp BP BP Pulse Ox 06/22/20 11:52 36.8 C 74 18 122/65 96 06/22/20 07:56 66 06/22/20 07:23 36.3 C L 59 L 18 127/79 97 06/22/20 03:00 36.6 C 60 19 112/72 99 Exam (Neuro) Physical Exam: General Exam: GEN: NAD, sitting/lying down in examination bed. HEENT: No conjunctival injection, no rhinorrhea. CV: RRR on monitor, no significant edema. PULM: Nonlabored respirations on room air. Neuro Exam: MS: Awake and Alert. Oriented to person, place, and date. Speech fluent and appropriate without dysarthria or paraphasic errors. Language intact including naming, comprehension, repetition. Cognition and memory grossly intact. Attention intact. No neglect. CN: Visual lipscomb full, + blink to threat bilaterally. No extinction to double simultaneous stimuli. Normal fundoscopic exam. PERRLA OU. EOMI without nystagmus. Facial sensation intact to LT. Facial muscles full and symmetric. Hearing intact to finger rub bilaterally. Uvula midline with symmetric palatal elevation. SCMs and shoulder shrug normal. Tongue midline. MOTOR: Normal bulk and tone. No pronator drift. BUE strength 5/5 at deltoids, biceps, triceps, wrist flexors and extensors, and finger flexors bilaterally. BLE strength 5/5 at iliopsoas, hamstrings, quadriceps, tibialis anterior, and gastrocnemius bilaterally. REFLEXES: 2+ at biceps, triceps, brachioradialis, 1+ patella, and trace Achilles bilaterally. Flexor plantar responses bilaterally. SENSORY: Intact to LT/vibration/temperature throughout except diminished in right face/RUE compared to the left side, no extinction to double simultaneous stimuli. COORDINATION: No dysmetria or ataxia on [id number] bilaterally. Normal Marie bilaterally. GAIT: Deferred due to physical status. NIH STROKE SCALE 1A. Level of Consciousness (0-3) = 0 1B. LOC Questions (0-2) = 0 1C. LOC Commands (0-2) = 0 2. Best Horizontal Gaze (0-2) = 0 3. Visual Lipscomb (0-3) = 0 4. Facial Palsy (0-3) = 0 5. Motor Arm Right (0-4) = 0 Left (0-4) = 0 6. Motor Leg Right (0-4) = 0 Left (0-4) = 0 7. Limb Ataxia (0-2) = 0 8. Sensory (0-2) = 0 9. Best Language (0-3) = 0 10. Dysarthria (0-2) = 0 11. Extinction and Inattention (0-2) = 0 NIHSS TOTAL = 0 PG Care Time/CCT Total # of Minutes Spent Total Time Spent with Patient: Total time spent is greater than 50% in coordination of care (as documented) at patient's floor/unit and/or counseling patient: Coding Level of Care Code 74970 Subseq Hosp Care Lvl 3 Diagnoses Stroke I63.9 Hyperlipidemia E78.5 Hyperlipidemia type: unspecified CAD (coronary artery disease) I25.10 Associated angina: without angina Coronary Disease-Associated Artery/Lesion type: [place] artery [place] vs. transplanted heart: [place] heart Cerebrovascular accident I63.9 Atrial fibrillation I48.91 (1) CAD (coronary artery disease) Associated angina: without angina Coronary Disease-Associated Artery/Lesion type: [place] artery [place] vs. transplanted heart: [place] heart Qualified Code(s): I25.10 - Atherosclerotic heart disease of [place] coronary artery without angina pectoris (2) Hyperlipidemia Hyperlipidemia type: unspecified Qualified Code(s): E78.5 - Hyperlipidemia, unspecified
[2020-06-22] MEDS: THIAMINE HCL 100 MG TAB PO SCH (19:49)
[2020-06-22 19:57] LABS: Appearance Urine Cloudy (Clear); Bacteria Urine Automated Negative (Negative); Bilirubin Urine Negative (Negative); Blood Urine Negative (Negative); Color Urine Yellow; Glucose Urine UA Negative (Negative); Ketones Urine Negative (Negative); Leukocyte Esterase Urine Negative (Negative); Nitrite Urine Negative (Negative); Protein Urine Negative (Negative); RBC Urine Automated 0-4 /hpf (0-4); Specific Gravity Urine 1.018 (1.000-1.030); Urobilinogen Urine Negative (Negative); pH Urine 5.5 (4.5-7.5)
[2020-06-23] MEDS: SODIUM CHLORIDE 0.9% 1000ML 1,000 ML IV SCH ×2 (02:30→05:47)
[2020-06-23] MEDS: ACETAMINOPHEN 500 MG TAB PO SCH ×2 (06:16→14:00)
[2020-06-23 07:29] LABS: Basophils # (auto) 0.04 K/uL (0-0.2); Basophils % (auto) 0.5 %; Eosinophils # (auto) 0.12 K/uL (0-0.5); Eosinophils % (auto) 1.5 %; Hematocrit (blood only) 43.9 % (42-52); Hemoglobin 14.5 g/dL (14.0-18.0); Lymphocytes # (auto) 3.54 K/uL (1.2-3.4); Lymphocytes % (auto) 43.1 %; Mean Corpuscular Hemoglobin 31.5 pg (25-34); Mean Corpuscular Volume 95.4 fL (80-100); Mean Platelet Volume 9.9 fL (7.4-10.4); Monocytes # (auto) 0.67 K/uL (0.11-0.59); Monocytes % (auto) 8.2 %; Neutrophils # (auto) 3.84 K/uL (1.4-6.5); Neutrophils % (auto) 46.7 %; Platelet Count 339 K/uL (130-400); RDW Coefficient of Variation 13.5 % (11.5-14.5); RDW Standard Deviation 46.6 fL (36.4-46.3); White Blood Count 8.21 K/uL (4.8-10.8)
[2020-06-23 08:00] LABS: BUN Creatinine Ratio 17.7 (10-20); Calcium 8.5 mg/dl (8.5-10.1); Creatinine Clr Calc Pharmacy 80.9 ml/min; Est GFR (Non-African American) 70.8; Potassium 3.7 mmol/L (3.5-5.1)
[2020-06-23] MEDS: ASPIRIN 81 MG ECTAB PO SCH (08:18)
[2020-06-23] MEDS: THIAMINE HCL 100 MG TAB PO SCH (08:18)
[2020-06-23] MEDS: VERAPAMIL HCL 40 MG TAB PO SCH (08:18)
[2020-06-23] MEDS: DULoxetine HCL 60 MG CAP PO SCH (08:19)
[2020-06-23] MEDS: ROSUVASTATIN CALCIUM 20 MG TAB PO SCH (08:19)
[2020-06-23] MEDS: PANTOprazole 40 MG TAB PO SCH (08:19)
--- NOTE | 2020-06-23 12:11 | Discharge Summary ---
Date of Service June 23, 2020 Admission HPI Per Admitting Provider Faraz Han is a 64yo male with history of prior TIA/CVA, CAD s/p stent placement presenting with right facial droop, AMS x 1 day. Patient was visiting his daughter yesterday 06/19/20 and she noted that he was "off" - less interactive, slightly confused. He was on a video chat with his mother who noted a right facial droop and slurred speech. Symptoms persisted throughout the day, progressed to involve weakness in his right hand as well as not using his right arm and worsening confusion which ultimately prompted him to come to the ER. Dominic's girlfriend reports he was having some left sided chest pain as well and a headache prior to arrival. Patient presently with no complaints. He denies fever/chills/cough/SOB/chest pain/nausea/vomiting/diarrhea or constipation. No additional complaints at this time. ER Course: ASA 324, Plavix 300mg, ALbuterol, Dexamethasone 10mg IV, Guaifenesn 600mg, NSS Admission Exam Per Admitting Provider General: patient resting comfortably, NAD, non-toxic in appearance, AA&O to person, location Skin: warm, dry, intact, no rashes or lesions HEENT: NC/AT, PERRL, EOMI, anicteric sclera, conjunctiva without injection, external ear normal to inspection and nontender, nares patent, moist mucus membranes, dentition intact, no oropharyngeal lesions, neck supple, trachea midline, no LAD, no thyromegaly, no JVD Heart: +S1/S2, regular, no m/r/g Lungs: equal air entry bilaterally, no rales/rhonchi/wheezes Abd: +BS, soft, NT/ND, no masses/organomegaly/ascites Ext: warm, 2+ pulses in UE/LE bilaterally, no clubbing/cyanosis or edema Neuro: patient awake, answering questions with some delay in word finding, slow speech clear and appropriate, +flattening of right nasolabial fold, mild right facial droop, +mild weakness of RUE 4/5 on senior interaction designer, flexion and extension of arm, +mild drift, strength 5/5 in bilateral LE, some difficulty with rapid alternating movement and finger to nose Principal Diagnosis CVA Discharge Exam Constitutional WD/WN, vitals as above no acute distress Eyes + anicteric sclerae and PERRL ENMT Ears: no hearing impairment Nose: no external nose abnormality Neck normal visual inspection and trachea midline Respiratory normal respiratory effort, lungs clear to auscultation Cardiovascular RRR, no murmur, no edema Gastrointestinal (Abdomen) normal bowel sounds, soft, nontender, no hepatosplenomegaly Musculoskeletal Head/Neck/Chest: normocephalic and head atraumatic Skin no rashes, warm and dry Neurologic awake, alert and oriented but slow with answering questions decreased senior interaction designer strength 4+/5 RUE, 5/5 LUE. decreased sensation to light touch R face (improved). No further flattening of nasolabial fold NVI moctezuma-heel without difficulty No pronator drift noted Psychiatric Orientation: alert, oriented x 3 and cooperative Lymphatic no cervical or axillary lymphadenopathy Discharge Data Allergies Allergy/AdvReac Type Severity Reaction Status Date / Time morphine AdvReac Unknown vomiting Unverified 06/20/20 21:24 Consultations 06/20/20 21:57 ED Decision to Admit Stat 06/21/20 01:47 Consult Case Management - Discharge Planning Routine Consult Neurology Routine Ordered Studies 06/20/20 18:43 CT angio chest PE protocol Stat 06/20/20 18:44 CT angio head w con Stat CT angio neck with con Stat CT head/brain wo con Stat 06/20/20 22:57 MR brain wo/w con Urgent 06/21/20 14:28 CT head/brain wo con Stat Hospital Course (1) CVA (cerebral vascular accident): 64yo C male with history of prior CVA s.p tPA administration in 04/2018 (self discontinued ASA therapy) --> presented with >24 hours of neurological symptoms - right facial droop, confusion, slurred speech and RUE weakness. Given ASA and Plavix in ER CT head: showed no hemorrhage, old infarcts in the right putamen/caudate head, left internal capsule, ?subacute infarct in the left genu of the internal capsule and likely arachnoid cyst in the right parafalcine frontal lobe CTA head/neck: shows hypoplastic versus high-grade stenosis of bilateral vertebral arteries fed by a persistent right trigeminal artery, right ELECTRICAL MANAGER, mild plaque at the right carotid bifurcation without significant stenosis noted, mild to moderate multifocal narrowing of bilateral MCAs (most noticeable in the R M1), no LVO, aneurysm or other stenosis noted MRI brain: shows subacute infarct in the left centrum semiovale extending down to the putamen Has been sinus nini on monitor. 1st degree block noted. No BB given. Lyme negative NIHSS, neurochecks, supplemental IVF as needed to maintain BP A1c 5.7 Lipid Panel with elevated triglycerides at 200 and cholesterol 280 (LDL 197, HDL 43) -- started on Crestor due to adverse reaction with atorvastatin in the past with myalgias To continue ASA 81mg, Crestor, Verapamil BID at discharge and follow up with Neurology and PCP Also set up for event monitor to look for occult AF (history of afib with ablation, none noted on telemetry while inpatient) PT/OT evaluations with rec for OPPT -- set up but patient may decline as he was adamant about going home. Social issues with separation from partner x5 weeks, depression, etoh use and living with daughter. PT evaluated with steps and patient able to reach milestones and was felt safe for D/C Of note, following CVA did have headache and repeat CT Head was done. Negative f or ICH and started on verapamil 40mg BID as above in addition to scheduled tylenol while inpatient. (2) CAD (coronary artery disease): * History of CAD s/p stent placement. Troponin x 1 negative, EKG with no acute ischemic changes * ASA and Crestor as above * Patient may benefit from BB and Nathan/ARB therapy as not on one previously. Given 1st degree AV block did not utilize BB. * Started on verapamil as above and will help with BPs * [facility] and if pressures remain elevated would consider NATHAN/ARB (3) Depression: * Chronic * Continued Duloxetine 60mg po daily (4) Peptic ulcer disease: * Chronic * Protonix 40mg po daily while inpatient and discharged on home Omeprazole (5) Hyperlipidemia: * Chronic but discontinued atorvastatin due to myalgias. Lipid panel with elevated triglycerides and cholesterol as above * Crestor as above (6) Atrial fibrillation: * Hx of with ablation -- outpt holter to look for occult AF as above to be arranged (7) Autoimmune hepatitis: * Patient with remote history of AIH, possible PBC. He was reportedly on Imuran then Cell Cept. Issues are currently stable and patient is not on any medications. He was being followed at [facility] in the past. LFTs WNL * Ammonia wnl EToH Use -- reported 6beers 3x/wk. Of note, alcohol level undetectable on admission B12/folate wnl. B1 pending at discharge No signs/sx of withdrawal noted Encouraged cessation Discharged home with daughter and to have 30 day even monitor to look for occult afib. [facility] Sent on ASA, Crestor (Lipitor intolerance), and Verapamil. No BB due to bradycardia with 1st degree AV. May benefit from addition of lisinopril in future. Total Time Total Time Spent Total Time Spent (In Minutes): 80 Discharge Plan Discharge Items Patient Disposition: Home - Self-Care Reason For Visit: ?CVA Discharge Diagnosis: CVA Goals: You have been hospitalized for an acute medical problem. During your stay at [facility], we have made an effort to correct the problem that brought you to the hospital while keeping you as comfortable as possible. Medications were used to bring your condition under control and your discharge instructions will include directions for any medications you should take after leaving the hospital. Please make sure you see your Primary Care Provider as part of your follow up plan. Activity: Resume your previous activity Activity Comment: increase with outpatient therapy as tolerated Non-emergency contact: Primary Care Provider and Neurologist Call non-emergency contact if: you have any medication questions, your symptoms worsen and your pain is not controlled Follow-up/Referrals: Berenice Richmond MD [Physician] - 08/30/20 10:00 am (You have an appt with Jadyn at the Neurology office on at 10am. It is important that you keep this appt, if this appt does not fit your schedule please call [phone] to reschedule. ) Ashley Ross PA-C [Primary Care Provider] - ([facility] to get an [facility]t [facility] with your PCP. At this time many of the appts with them are via the phone. Because of this it is easier for you to schedule something that fits your schedule. ) Diet: Heart Healthy Addtl Attending Provider Instructions: You have been hospitalized and found to have had an acute stroke. Given history of stroke and to be on aspirin 81mg daily, it IS STRONGLY CHRISTIAN MMENDED TO CONTINUE THIS DAILY TO PREVENT REPEAT STROKES! this is not covered by insurance you will need to purchase 81mg daily over the counter when you go to [facility] the rest of your prescriptions. Your cholesterol was also found to be elevated and that increases your risk and you have been placed on crestor given your adverse reactions to atorvastatin in the past. You are being set up with a 30 day even monitor to look for underlying atrial fibrillation given your history of ablation. If this shows afib you may be started on anticoagulation at that time. You have been in normal rhythm while in the hospital and this has not been started at this time. For better blood pressure control and headache, you were started on nifedipime and will continue twice daily. Please follow up with primary care through the [facility] as well as Neurology in 6-8 weeks (either locally or through [facility] if they are able to arrange sooner). You are being set up with outpatient therapy per recommendations but are determined safe for discharge home as you have met the requirements. Please keep all follow up appointments as scheduled and AVOID ALCOHOL! If you have any worsening or recurrence of your symptoms or for any other symptoms that are concerning for you, please return to the nearest emergency department. It has been a pleasure being a part of the medical team providing for you while you have been in the hospital. Take care! Addtl Heel Blacker Provider Instructions: Risk Factors for Stroke: You can reduce your chances of stroke by working with your medical provider to adopt a healthy lifestyle. Some specific ways to lower your chance of stroke are: * If you are a smoker, now is the time to stop smoking cigarettes * If you are diabetic, improve the control of your blood sugars * Avoid excessive amounts of alcohol * Control high blood pressure * Lose weight if you are overweight * Be sure to lead an active lifestyle * Eat a healthy diet low in salt, cholesterol and fat You should know about other risk factors for stroke that you are unable to control. These include: * Age 55 years or older * Male gender * Certain racial groups: , or / * Family History of Stroke, Mini stroke or Heart Attack * Sickle Cell Disease Follow Up: It is important for you to keep your follow up appointments with your medical provider. Who to Call and When: Medical Emergencies: Call 911 immediately if you experience any of the following warning signs and symptoms of Stroke: * Sudden numbness or weakness of the face, arm or leg, especially on one side of the body * Sudden confusion, trouble speaking or understanding * Sudden trouble seeing in one or both eyes * Sudden trouble walking, dizziness, loss of balance or coordination * Sudden severe headache with no cause Do not delay calling 911 if you experience any warning signs or symptoms of a stroke. Delay in seeking medical attention may affect what treatments can be given to you. . Pending Studies at Discharge: Yes Studies:: B1 Stand-Alone Forms: [facility], Smoking Cessation Medications and DC Order Prescriptions: New verapamil 40 mg Tablet 40 mg PO BID 30 Days Qty: 60 RF: 1 aspirin 81 mg Tablet,Delayed Release (Dr/Ec) 81 mg PO QAM 30 Days Qty: 30 RF: 0 rosuvastatin [Crestor] 20 mg Tablet 20 mg PO QAM 30 Days Qty: 30 RF: 1 Continued omeprazole 40 mg Capsule,Delayed Release(Dr/Ec) 40 mg PO DAILY RF: 0 ibuprofen 200 mg Tablet 400 mg PO Q6H PRN (Reason: Pain) RF: 0 duloxetine 60 mg capsule,delayed release(DR/EC) 60 mg PO DAILY RF: 0 Discharge Orders: Discharge Order (Routine); Ordered 06/23/20 Ordered By: Magda Chowdhury Admission Data Admit Date/Time: 06/20/20 23:30 Attending Provider: Ady Singh Admit Provider: Nida Heaton Primary Care Provider: Ashley Ross Other Providers: Nida Heaton ; Berenice Richmond Other Interventions: Discharge Summary Assessment (RN) Last Done: 06/23/20 13:06 Coding Level of Care Code D/C Day Management >30 mins Diagnoses CVA (cerebral vascular accident) I63.9 CAD (coronary artery disease) I25.10 Associated angina: without angina Coronary Disease-Associated Artery/Lesion type: kake artery [place] vs. transplanted heart: kake heart Depression F32.9 Active/Remission status: remission status unspecified Depression Type: major depressive disorder Major depression recurrence: unspecified whether recurrent Peptic ulcer disease K27.9 Hyperlipidemia E78.5 Hyperlipidemia type: unspecified Atrial fibrillation I48.91 Autoimmune hepatitis K75.4
== END 2020-06-23 14:03 | disposition home or self-care (01) | DRG 66 ==
LOC: ED 18:12 → 2N 23:30 → SUATTDRO 23:30 → 2N 06-21 00:02

== ENCOUNTER 2020-12-25 10:41 | Inpatient (IN) ==
[2020-12-25 12:05] LABS: Basophils # (auto) 0.06 K/uL (0-0.2); Basophils % (auto) 0.6 %; Hematocrit (blood only) 44.6 % (42-52); Hemoglobin 15.3 g/dL (14.0-18.0); Immature Granulocytes # (auto) 0.02 K/uL (0.00-0.02); Immature Granulocytes % (auto) 0.2 %; Lymphocytes % (auto) 33.2 %; Mean Corpuscular Hgb Conc 34.3 g/dL (32-36); Mean Corpuscular Volume 93.3 fL (80-100); Mean Platelet Volume 10.2 fL (7.4-10.4); Monocytes # (auto) 0.78 K/uL (0.11-0.59); Monocytes % (auto) 7.8 %; Neutrophils # (auto) 5.59 K/uL (1.4-6.5); Neutrophils % (auto) 56.2 %; Platelet Count 322 K/uL (130-400); RDW Coefficient of Variation 13.3 % (11.5-14.5); RDW Standard Deviation 45.9 fL (36.4-46.3); Red Blood Count 4.78 M/uL (4.7-6.1); White Blood Count 9.95 K/uL (4.8-10.8)
[2020-12-25 12:09] LABS: Alanine Aminotransferase 38 U/L (12-78); Aspartate Aminotransferase 17 U/L (15-37); BUN Creatinine Ratio 18.2 (10-20); Blood Urea Nitrogen 21 mg/dl (7-18); Calcium 9.4 mg/dl (8.5-10.1); Carbon Dioxide 27 mmol/L (21-32); Chloride 106 mmol/L (98-107); Creatinine Clr Calc Pharmacy 78.6 ml/min; Est GFR (African American) 78.9 ml/min; Est GFR (Non-African American) 68.1 ml/min; Glucose 101 mg/dl (70-99); Lipase 95 U/L (73-393); Potassium 4.4 mmol/L (3.5-5.1); Sodium 137 mmol/L (136-145)
--- NOTE | 2020-12-25 12:09 | XRay Report ---
XR chest 1V portable HISTORY: Atypical Chest Pain COMPARISON: Chest 06/20/2020. FINDINGS: There are low lung volumes. The cardiac silhouette remains mildly enlarged. Cervical spinal fusion hardware is again noted. No pneumothorax. There is perihilar interstitial/vascular thickening which is slightly progressed. This suggests mild pulmonary vascular congestion. Stable blunting of t he left lateral costophrenic sulcus. No pleural effusions. IMPRESSION: Hypoventilatory study with mild central pulmonary vascular congestion without overt edema. ACT 112: Negative or not required by law. Electronically signed by: Neville Anguiano M.D. 12/25/2020 12:07 PM
[2020-12-25 12:13] LABS: Alkaline Phosphatase 111 U/L (45-117); Bilirubin,Total 0.4 mg/dl (0.2-1); Troponin I < 0.015 ng/ml (0-0.045)
[2020-12-25 12:17] LABS: Partial Thromboplastin Time 25.1 Seconds (21.0-31.0)
[2020-12-25] MEDS ORDERED: NITROGLYCERIN SL 0.4 MG/TAB TAB SL STA (13:09)
[2020-12-25] MEDS ORDERED: NITROGLYCERIN 2% OINTMENT 30GM TUBE EXT STA (13:09)
--- NOTE | 2020-12-25 14:21 | Emergency Department Note ---
History of Present Illness General Chief complaint: Chest Pain Stated complaint: CHEST PAIN/SOB Time Seen by Provider: 12/25/20 11:46 Source: patient Mode of arrival: ambulatory Limitations: no limitations History of Present Illness Provider complaint: Chest pain Maximum Pain Intensity: 4 This is a 65-year-old male who presents to the ED with a chief complaint of chest discomfort. The patient states that he had a nuclear stress test last week. It did show some apical ischemia. We got this from the [facility]. This was done at [facility]. The patient has been having some exertional chest pain with associated shortness of breath. He is now intermittently getting the pain at rest. He states that he [facility] He was recommended to come to the ED for further evaluation. The patient has no additional complaints at this time. No fevers or recent illness. Home Medications Medication Instructions Recorded Confirmed Type omeprazole 40 mg PO HS 06/20/20 12/25/20 History aspirin 81 mg PO HS 07/13/20 12/25/20 History rosuvastatin [Crestor] 20 mg PO HS 07/13/20 12/25/20 History gabapentin 100 mg PO TID 12/25/20 12/25/20 History Allergies Allergy/AdvReac Type Severity Reaction Status Date / Time morphine AdvReac Unknown vomiting Unverified 12/25/20 11:50 Past Med/Surg History Medical History Atrial fibrillation s/p ablation Autoimmune hepatitis CAD (coronary artery disease) stent to diagonal branch in 2011 Cerebrovascular accident s/p tPA in 04/2018 Depression Emphysema, unspecified Hyperlipidemia Peptic ulcer disease Surgical History History of appendectomy History of cervical spinal surgery History of cholecystectomy History of heart artery stent Social History Smoking Status: Never smoker Preferred Language: Belarusian Communication Ability: Effective Beliefs That Will Affect Care: None Current Living Situation: Significant Other Feels Safe at Home: Yes Assistive Devices: Glasses Review of Systems A total of 10 systems reviewed and were otherwise negative Physical Exam Vital Signs Vital Signs - 24 hr 12/25/20 10:44 12/25/20 10:59 12/25/20 11:11 Temperature 36.7 C Temperature Source Temporal Artery Scan Pulse Rate 71 68 Pulse Rate from SpO2 Sensor Respiratory Rate 16 16 Respiratory Effort / Characteristics Non-Labored Respiratory Depth Normal Respiratory Pattern Regular Blood Pressure 167/104 H 165/119 H Blood Pressure Mean 125 134 Blood Pressure Position Sitting Pulse Oximetry 98 98 Oxygen Delivery Method Room Air Room Air Sepsis Recent Fever Within 48 Hours No Sepsis New/Unexplained Change in Mental Status No Sepsis Action Taken by Nursing No Action Required 12/25/20 12:30 12/25/20 12:45 12/25/20 13:30 Temperature Temperature Source Pulse Rate 59 L 56 L 63 Pulse Rate from SpO2 Sensor 59 L 56 L 63 Respiratory Rate 15 14 14 Respiratory Effort / Characteristics Respiratory Depth Respiratory Pattern Blood Pressure 179/99 H 179/99 H 151/107 H Blood Pressure Mean 125 125 121 Blood Pressure Position Pulse Oximetry 96 98 98 Oxygen Delivery Method Sepsis Recent Fever Within 48 Hours Sepsis New/Unexplained Change in Mental Status Sepsis Action Taken by Nursing 12/25/20 13:31 12/25/20 13:33 12/25/20 13:35 Temperature Temperature Source Pulse Rate 70 74 74 Pulse Rate from SpO2 Sensor 71 74 73 Respiratory Rate 13 14 13 Respiratory Effort / Characteristics Respiratory Depth Respiratory Pattern Blood Pressure 125/84 125/84 141/90 H Blood Pressure Mean 97 97 107 Blood Pressure Position Pulse Oximetry 95 94 93 Oxygen Delivery Method Sepsis Recent Fever Within 48 Hours Sepsis New/Unexplained Change in Mental Status Sepsis Action Taken by Nursing 12/25/20 13:40 12/25/20 13:50 Temperature Temperature Source Pulse Rate 62 54 L Pulse Rate from SpO2 Sensor 61 53 L Respiratory Rate 11 L 14 Respiratory Effort / Characteristics Respiratory Depth Respiratory Pattern Blood Pressure 148/94 H 131/86 Blood Pressure Mean 112 101 Blood Pressure Position Pulse Oximetry 96 96 Oxygen Delivery Method Sepsis Recent Fever Within 48 Hours Sepsis New/Unexplained Change in Mental Status Sepsis Action Taken by Nursing CONSTITUTIONAL/VITAL SIGNS: Reviewed / noted above. GENERAL: Non-toxic in appearance. INTEGUMENTARY: Warm, dry, and [place]. HEAD: Normocephalic. EYES: without scleral icterus or trauma. ENT/OROPHARYNX: clear and moist. LYMPHADENOPATHY/NECK: Is supple without lymphadenopathy or meningismus. RESPIRATORY: Lungs clear and equal. CARDIOVASCULAR: Regular rate and rhythm. GI/ABDOMEN: Soft and nontender. No organomegaly or pulsatile mass. No rebound or guarding. Normal bowel sounds. EXTREMITIES: Warm and well perfused. BACK: No CVA tenderness. NEUROLOGICAL: Intact without focal deficits. PSYCHIATRIC: normal affect. MUSCULOSKELETAL: Normally developed with good muscle tone. TRIAGE NURSING DOCUMENTATION REVIEWED. Course Administered Medications Discontinued Medications Nitroglycerin (Nitroglycerin Sl 0.4 Mg/Tab Tab) 0.4 mg SL NOW STA Stop: 12/25/20 13:10 Last Admin: 12/25/20 13:32 Dose: 0.4 mg Documented by: [id number] Nitroglycerin (Nitroglycerin 2% Ointment 30gm Tube) 1 inch EXT NOW STA Stop: 12/25/20 13:10 Last Admin: 12/25/20 13:32 Dose: 1 inch Documented by: [id number] Medical Decision Making Differential Diagnosis The differential that was considered includes acute myocardial infarction, acute coronary syndrome, myocarditis, pericarditis, pericardial effusions /tamponade, esophageal perforation, thoracic aortic dissection, pulmonary embolism, pneumonia, pneumothorax, pancreatitis, shingles, acute cholecystitis, perforated abdominal viscus. Medical Records Attestation: I reviewed the patient's medical records. Home Medications Current Medication List: was personally reviewed by me Laboratory Data Attestation: I reviewed the patient's lab results. Result diagrams: 12/25/20 11:00 12/25/20 11:00 Lab Results 12/25/20 12/25/20 12/25/20 Range/Units 11:00 11:00 11:00 WBC 9.95 (4.8-10.8) K/uL RBC 4.78 (4.7-6.1) M/uL Hgb 15.3 (14.0-18.0) g/dL Hct 44.6 (42-52) % MCV 93.3 (80-100) fL MCH 32.0 (25-34) pg MCHC 34.3 (32-36) g/dL RDW Std Deviation 45.9 (36.4-46.3) fL RDW Coeff of Karli 13.3 (11.5-14.5) % Plt Count 322 (130-400) K/uL MPV 10.2 (7.4-10.4) fL Immature Gran % (Auto) 0.2 % Neut % (Auto) 56.2 % Lymph % (Auto) 33.2 % [place] % (Auto) 7.8 % Eos % (Auto) 2.0 % Baso % (Auto) 0.6 % Neut # (Auto) 5.59 (1.4-6.5) K/uL Lymph # (Auto) 3.30 (1.2-3.4) K/uL [place] # (Auto) 0.78 H (0.11-0.59) K/uL Eos # (Auto) 0.20 (0-0.5) K/uL Baso # (Auto) 0.06 (0-0.2) K/uL Immature Gran # (Auto) 0.02 (0.00-0.02) K/uL APTT 25.1 (21.0-31.0) Seconds PTT Ratio 1.0 Sodium 137 (136-145) mmol/L Potassium 4.4 (3.5-5.1) mmol/L Chloride 106 (98-107) mmol/L Carbon Dioxide 27 (21-32) mmol/L Anion Gap 4.0 (3-11) BUN 21 H (7-18) mg/dl Creatinine 1.14 (0.6-1.4) mg/dl Est Cr Clr Drug Dosing 78.6 ml/min Est GFR ( Amer) 78.9 ml/min Est GFR (Non-Af Amer) 68.1 ml/min BUN/Creatinine Ratio 18.2 (10-20) Glucose 101 H (70-99) mg/dl Calcium 9.4 (8.5-10.1) mg/dl Total Bilirubin 0.4 (0.2-1) mg/dl AST 17 (15-37) U/L ALT 38 (12-78) U/L Alkaline Phosphatase 111 (45-117) U/L Troponin I < 0.015 (0-0.045) ng/ml Total Protein 8.0 (6.4-8.2) gm/dl Albumin 4.0 (3.4-5.0) gm/dl Globulin 4.0 (2.5-4.0) gm/dl Albumin/Globulin Ratio 1.0 (0.9-2) Lipase 95 (73-393) U/L Imaging Data Radiologist's Impression: Chest X-Ray 12/25/20 11:44 XR chest 1V portable HISTORY: Atypical Chest Pain COMPARISON: Chest 06/20/2020. FINDINGS: There are low lung volumes. The cardiac silhouette remains mildly enlarged. Cervical spinal fusion hardware is again noted. No pneumothorax. There is perihilar interstitial/vascular thickening which is slightly progressed. This suggests mild pulmonary vascular congestion. Stable blunting of the left lateral costophrenic sulcus. No pleural effusions. IMPRESSION: Hypoventilatory study with mild central pulmonary vascular congestion without overt edema. ACT 112: Negative or not required by law. Electronically signed by: Neville Anguiano M.D. 12/25/2020 12:07 PM ECG Data Attestation: I personally reviewed and interpreted this ECG as follows: Indication: + chest pain Rate (beats per minute): 70 ECG Intervals/blocks: + Normal QT-c ECG ST segments: no ST elevation ECG Findings: no PVCs MDM Narrative This is a 65-year-old male who presents with chest pain that is primarily with exertion associate with shortness of breath. He had an abnormal stress test last week. He reports here for ongoing symptoms with exertion and a little at rest. His CBC and chemistry panel was normal. Troponin was negative, EKG shows a sinus rhythm at a rate of 70. Chest x-ray shows some mild vascular congestion but otherwise no acute process. Because of the patient's abnormal stress test and ongoing symptoms, he seems to have symptoms suggestive of unstable angina. He will be seen by the hospitalist for further evaluation and care. The patient was placed on nitroglycerin following nitro sublingual. His blood pressure did improve this and his symptoms improved. Impression & Plan Angina pectoris, unstable Discharge Plan Visit Data Chief Complaint: Chest Pain Stated Complaint: CHEST PAIN/SOB ED Provider: Sincere Marrero Discharge Problem: Angina pectoris, unstable Forms Stand Alone Forms: [facility] [employer] Prescriptions Prescriptions: No Action omeprazole 40 mg Capsule,Delayed Release(Dr/Ec) 40 mg PO HS RF: 0 aspirin 81 mg tablet,delayed release (DR/EC) 81 mg PO HS RF: 0 rosuvastatin [Crestor] 20 mg tablet 20 mg PO HS RF: 0 gabapentin 100 mg Capsule 100 mg PO TID RF: 0
--- NOTE | 2020-12-25 14:39 | Electrocardiogram Report ---
Test Reason : Blood Pressure : / mmHG Vent. Rate : 070 BPM Atrial Rate : 070 BPM P-R Int : 260 ms QRS Dur : 070 ms QT Int : 380 ms P-R-T Axes : 031 -42 042 degrees QTc Int : 410 ms Sinus rhythm with 1st degree A-V block Left axis deviation Abnormal ECG When compared with ECG of 13-JUL-2020 10:48, No significant change was found Confirmed by Usman Silva ([id number]) on 12/25/2020 2:38:56 PM Referred By: Confirmed By:Usman Silva
--- NOTE | 2020-12-25 14:41 | History & Physical Report ---
Date of Service December 25, 2020 Assessment & Plan (1) Angina pectoris, unstable: Patient with typical sounding chest pain, recent abnormal stress testing at outside facility I did review studies, patient had normal all pharmacologic stress test with post-rest ejection fraction. Cardiolite showed small area of apical ischemia and study dated 12/20/2020 from [facility]. 2D echo read is LV EF of 63%, false tendon left ventricle, LVO wall thickness is borderline increased, grade 1 diastolic dysfunction. No significant change from 2018 Admit patient to monitored bed. Work-up so far has been negative with negative troponins, will repeat. Considering patient's history will start heparin drip Pulse of 60, would not tolerate beta-ryder Patient already on low-dose aspirin. Consult cardiology, make n.p.o. for possible cardiac catheterization in the morning. (2) Hyperlipidemia: Per , patient was previously on Crestor but he been noncompliant with this. [facility] Check fasting lipids, if significantly elevated may need to consider high intensity statins with rosuvastatin again (3) CAD (coronary artery disease): Low-dose aspirin as noted Lipids as noted Further treatment per cardiology as detailed above. History of Present Illness Primary Care Provider: Ashley Ross This is a 65-year-old male with past medical history of previous CVA, hyperlipidemia that presents today complaining of chest pain. Patient is accompanied by both are good historians. Patient states that his chest pain started early Friday morning, 12/19. At that time he described the pain as substernal/left-sided with radiation to the left arm. There is no radiation of the jaw. He noted mild shortness of breath but worsening dyspnea on exertion. He had no palpitations or diaphoresis. He called EMS and at that time was taken to [facility]. He had a stress test which was abnormal with normal rest images and a small amount of apical ischemia. He was offered cardiac catheterization there but elected to get this done as an outpatient. He was subsequently discharged and has an appointment with the [facility] cardiology group on 01/03. Patient tells us however that the pain never fully subsided and is once again even worse. He is again noting worsening dyspnea on exertion. Patient presented to our facility after discussing with his primary care physician as he feels that he cannot wait until his cardiology appointment. At the time my evaluation, patient was stable and no acute distress. He did describe some the pain. at bedside states that he typically follows at the [place], was recently diagnosed with hypertriglyceridemia and was started on Pravachol. Also noted the patient had previously had a CVA in June 2020. Allergies Allergy/AdvReac Type Severity Reaction Status Date / Time morphine AdvReac Unknown vomiting Unverified 12/25/20 11:50 Home Medications Medication Instructions Recorded Confirmed Type omeprazole 40 mg PO HS 06/20/20 12/25/20 History aspirin 81 mg PO HS 07/13/20 12/25/20 History rosuvastatin [Crestor] 20 mg PO HS 07/13/20 12/25/20 History gabapentin 100 mg PO TID 12/25/20 12/25/20 History Past Med/Surg History Medical History Atrial fibrillation s/p ablation Autoimmune hepatitis CAD (coronary artery disease) stent to diagonal branch in 2011 Cerebrovascular accident s/p tPA in 04/2018 Depression Emphysema, unspecified Hyperlipidemia Peptic ulcer disease Surgical History History of appendectomy History of cervical spinal surgery History of cholecystectomy History of heart artery stent Social History Smoking Status: Never smoker Preferred Language: Irish Communication Ability: Effective Beliefs That Will Affect Care: None Current Living Situation: Significant Other Feels Safe at Home: Yes Assistive Devices: Glasses Review of Systems Constitutional: no fever, no chills, no weakness and no anorexia Ear, Nose, Mouth, Throat: as per Subjective / HPI Respiratory: + dyspnea and + dyspnea on exertion; no chest congestion, no change in sputum, no hemoptysis, no pain on inspiration, no pain with cough, no snoring and no wheezing Cardiovascular: + chest pain at rest, + chest pain with activity, + radiating jaw, neck or arm pain and + dyspnea on exertion; no dyspnea at rest, no orthopnea, no paroxysmal nocturnal dyspnea, no palpitations, no lightheadedness, no syncope, no edema, no calf pain and no claudication Gastrointestinal: no abdominal pain, no nausea, no vomiting, no constipation and no diarrhea/loose stools Genitourinary: no dysuria, no difficulty urinating, no urinary hesitancy and no urinary incontinence Musculoskeletal: no back pain, no neck pain, no loss of height, no joint pain, no swelling and no stiffness Integumentary: no acne and no boil Neurologic: no gait abnormality, no localized weakness and no loss of sensation Psychiatric: as per Subjective / HPI Endocrine: as per Subjective / HPI Physical Exam Constitutional: well nourished, cooperative and comfortable; no acute distress Neck: trachea midline, no thyromegaly Respiratory: normal respiratory effort, lungs clear to auscultation Auscultation: lungs clear to auscultation bilaterally Cardiovascular: RRR, no murmur, no edema Rate/Rhythm: regular rate and regular rhythm Vessels: no JVD and no carotid bruit Gastrointestinal (Abdomen): normal bowel sounds, soft, nontender, no hepatosplenomegaly Percussion/Palpation: abdomen nontender, no guarding, abdomen not rigid and + abdomen not soft Musculoskeletal: no cyanosis or clubbing, extremities motor strength 5/5 Skin: no rashes, warm and dry Results & Data Results & Data ([facility]) Vital Signs (Past 12 Hours) Vital Signs Temp Pulse Resp BP Pulse Ox 12/25/20 14:31 60 15 125/80 95 12/25/20 14:20 61 10 L 144/94 H 98 12/25/20 14:10 56 L 21 143/105 H 97 12/25/20 14:00 63 13 151/90 H 97 12/25/20 13:51 57 L 12 96 12/25/20 13:50 54 L 14 131/86 96 12/25/20 13:40 62 11 L 148/94 H 96 12/25/20 13:35 74 13 141/90 H 93 12/25/20 13:33 74 14 125/84 94 12/25/20 13:31 70 13 125/84 95 12/25/20 13:30 63 14 151/107 H 98 12/25/20 12:45 56 L 14 179/99 H 98 12/25/20 12:30 59 L 15 179/99 H 96 12/25/20 11:11 98 12/25/20 10:59 68 16 165/119 H 12/25/20 10:44 36.7 C 71 16 167/104 H 98 PG Care Time/CCT Total # of Minutes Spent Total Time Spent with Patient: Total time spent is greater than 50% in coordination of care (as documented) at patient's floor/unit and/or counseling patient: Coding Level of Care Code 84142 Initial Inpt Care Lvl 3 Diagnoses Angina pectoris, unstable I20.0 Hyperlipidemia E78.5 Hyperlipidemia type: unspecified CAD (coronary artery disease) I25.10 Coronary Disease-Associated Artery/Lesion type: [place] artery [place] vs. transplanted heart: [place] heart Associated angina: without angina (1) Hyperlipidemia Hyperlipidemia type: unspecified Qualified Code(s): E78.5 - Hyperlipidemia, unspecified (2) CAD (coronary artery disease) Coronary Disease-Associated Artery/Lesion type: [place] artery [place] vs. transplanted heart: [place] heart Associated angina: without angina Qualified Code(s): I25.10 - Atherosclerotic heart disease of [place] coronary artery without angina pectoris
[2020-12-25] MEDS ORDERED: NITROGLYCERIN SL 0.4 MG/TAB TAB SL PRN (18:33)
[2020-12-25] MEDS ORDERED: ZOLPIDEM TARTRATE 5 MG TAB PO PRN (18:33)
[2020-12-25] MEDS ORDERED: Heparin IV Adult Wt-Based Standard WITH Bolus Protocol STA (18:33)
[2020-12-25] MEDS ORDERED: ONDANSETRON INJ 2 MG/ML 2 ML VIAL IV PRN (18:33)
[2020-12-25] MEDS ORDERED: HEPARIN SOD (PORCINE) 1000 UNIT/ML IV SCH (18:45)
[2020-12-25] MEDS: HEPARIN SODIUM/DEXTROSE 25,000 UNITS/500 ML BAG IV SCH (19:37)
[2020-12-25] MEDS: ASPIRIN 81 MG ECTAB PO SCH (19:43)
[2020-12-25] MEDS: PANTOprazole 40 MG TAB PO SCH (19:44)
[2020-12-25] MEDS: GABAPENTIN 100 MG CAP PO SCH (19:44)
[2020-12-25] MEDS: ROSUVASTATIN CALCIUM 20 MG TAB PO SCH (19:44)
[2020-12-26] MEDS: ACETAMINOPHEN 325 MG TAB PO PRN ×2 (00:51→19:48)
[2020-12-26 04:39] LABS: Basophils # (auto) 0.04 K/uL (0-0.2); Basophils % (auto) 0.4 %; Eosinophils # (auto) 0.28 K/uL (0-0.5); Eosinophils % (auto) 2.6 %; Hematocrit (blood only) 39.9 % (42-52); Hemoglobin 14.1 g/dL (14.0-18.0); Immature Granulocytes # (auto) 0.02 K/uL (0.00-0.02); Immature Granulocytes % (auto) 0.2 %; Lymphocytes # (auto) 4.01 K/uL (1.2-3.4); Lymphocytes % (auto) 37.2 %; Mean Corpuscular Hemoglobin 32.9 pg (25-34); Mean Corpuscular Hgb Conc 35.3 g/dL (32-36); Mean Platelet Volume 9.8 fL (7.4-10.4); Monocytes # (auto) 0.77 K/uL (0.11-0.59); Monocytes % (auto) 7.1 %; Neutrophils # (auto) 5.65 K/uL (1.4-6.5); Neutrophils % (auto) 52.5 %; Platelet Count 288 K/uL (130-400); RDW Coefficient of Variation 13.3 % (11.5-14.5); Red Blood Count 4.29 M/uL (4.7-6.1); White Blood Count 10.77 K/uL (4.8-10.8)
[2020-12-26 04:58] LABS: Partial Thromboplastin Ratio 2.1
[2020-12-26 05:04] LABS: Partial Thromboplastin Time 54.9 Seconds (21.0-31.0)
[2020-12-26 05:11] LABS: BUN Creatinine Ratio 16.9 (10-20); Calcium 8.5 mg/dl (8.5-10.1); Creatinine Clr Calc Pharmacy 78.9 ml/min; Est GFR (African American) 79.7 ml/min; Est GFR (Non-African American) 68.8 ml/min; Magnesium 2.1 mg/dl (1.8-2.4); Potassium 3.8 mmol/L (3.5-5.1)
[2020-12-26] MEDS: GABAPENTIN 100 MG CAP PO SCH ×3 (09:12→20:34)
[2020-12-26] MEDS: HEPARIN SODIUM/DEXTROSE 25,000 UNITS/500 ML BAG IV SCH (10:46)
--- NOTE | 2020-12-26 11:30 | Cardiology Consultation ---
Date of Consultation December 26, 2020 Assessment & Plan (1) Angina pectoris, unstable: -history is highly suggestive of unstable angina pectoris. -agree with intravenous heparin. -would add low-dose metoprolol tartrate. -continue aspirin. -cardiac catheterization later this morning. (2) CAD (coronary artery disease): -history of 2 intracoronary stents in 2011. -details unknown. (3) Hyperlipidemia: -LDL cholesterol elevated 128. -would increase dose of Crestor. (4) Atrial fibrillation: -status post radiofrequency ablation in 2006. -not currently on long-term anticoagulation. History of Present Illness Attending Physician: Chaim Rosenbaum MD History of Present Illness Mr. Han is a 65yo male admitted yesterday with crescendo angina pectoris. This consultation was obtained to assistance cardiac management. The patient's recent history began on December 19 when the patient developed substernal chest pain with radiation to the left arm, as well as associated dyspnea while at rest. There was no associated nausea, vomiting, or diaphoresis. His symptoms worsened with exertion. He called 911 and went to [facility] emergency room. At [facility], a nuclear stress test was performed that showed a small area of apical ischemia. He was offered a cardiac catheterization, but opted to have it performed on an outpatient basis. He was discharged with an appointment with [facility] scheduled for January 03. Since discharge, patient reports that his chest pain and dyspnea have persisted with minimal exertion. and over the past 1-2 days, he has had several brief episode while at rest. The patient called his primary care physician, who recommended going to our emergency room. The patient carries a history of coronary artery disease having had two stents placed in 2011 at [facility] (details unknown). He also has a history of paroxysmal atrial fibrillation and underwent an ablation in 2006, at [facility]. Currently, patient is resting comfortably in bed without complaints. Past medical and surgical history 1. Coronary artery disease-see above 2. Hypercholesterolemia 3. Paroxysmal atrial fibrillation 4. Radiofrequency ablation-2006 5. Borderline LVH-June 2012 6. Emphysema 7. Peptic ulcer disease 8. Autoimmune hepatitis 9. Depression 10. Cholecystectomy 11. 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 Allergies Allergy/AdvReac Type Severity Reaction Status Date / Time morphine AdvReac Unknown vomiting Unverified 12/25/20 11:50 Home Medications Medication Instructions Recorded Confirmed Type omeprazole 40 mg PO HS 06/20/20 12/25/20 History aspirin 81 mg PO HS 07/13/20 12/25/20 History rosuvastatin [Crestor] 20 mg PO HS 07/13/20 12/25/20 History gabapentin 100 mg PO TID 12/25/20 12/25/20 History Patient History Medical History Atrial fibrillation s/p ablation Autoimmune hepatitis CAD (coronary artery disease) stent to diagonal branch in 2011 Cerebrovascular accident s/p tPA in 04/2018 Depression Emphysema, unspecified Hyperlipidemia Peptic ulcer disease Surgical History History of appendectomy History of cervical spinal surgery History of cholecystectomy History of heart artery stent Social History Smoking Status: Never smoker Hx Alcohol Use: No Hx Substance Use: No Preferred Language: Welsh Communication Ability: Effective Iron Handler Required: No Beliefs That Will Affect Care: None Current Living Situation: Significant Other Other Information That Helps Us Care for You: No Feels Safe at Home: Yes Safety Concerns: Feels Safe At This Time Assistive Devices: None Physical Exam Physical Exam: In general this is a well-developed well-nourished white male in no acute distress. HEENT exam is negative. Neck is supple with full carotid upstrokes. There are no carotid bruits. Jugular venous pressure is flat at 90. There is no thyromegaly. Cardiovascular exam reveals a regular rhythm with a normal S1 and S2. No S3, S4, or murmurs are noted. Lungs are clear without rales, rhonchi, or wheezes. Abdomen is soft and nontender without bruits. Extremities reveal intact radial artery and posterior tibial pulses bilaterally. There is no peripheral edema. Results & Data ([facility]) Vital Signs (Past 12 Hours) Vital Signs Temp Pulse Pulse Resp BP Pulse Ox 12/26/20 08:09 63 12/26/20 06:24 36.6 C 62 17 121/73 95 12/26/20 04:29 36.6 C 65 17 117/75 92 12/26/20 00:37 69 112/77 12/26/20 00:10 36.9 C 91 H 18 123/80 97 Laboratory Results CBC notes hemoglobin 14.1, hematocrit 39.9, white count 10.7, platelet count of 082026. Electrolytes note a sodium of 140, potassium 3.8, chloride 107, bicarb 20, BUN 19, creatinine 1.13, glucose of 100. Three troponin I levels are undetectable less than 0.015. Diagnostic Findings EKG notes normal sinus rhythm with first-degree AV block and a left axis deviation. compliance monitor is benign. Chest x-ray shows no acute disease. PG Care Time/CCT Total # of Minutes Spent Total Time Spent with Patient: Total time spent is greater than 50% in coordination of care (as documented) at patient's floor/unit and/or counseling patient: Coding Level of Care Code 22344 Inpt Consult Level 5 Diagnoses Angina pectoris, unstable I20.0 CAD (coronary artery disease) I25.10 Coronary Disease-Associated Artery/Lesion type: [place] artery [place] vs. transplanted heart: [place] heart Associated angina: without angina Hyperlipidemia E78.5 Hyperlipidemia type: unspecified Atrial fibrillation I48.91 (1) CAD (coronary artery disease) Coronary Disease-Associated Artery/Lesion type: [place] artery [place] vs. transplanted heart: [place] heart Associated angina: without angina Qualified Code(s): I25.10 - Atherosclerotic heart disease of [place] coronary artery without angina pectoris (2) Hyperlipidemia Hyperlipidemia type: unspecified Qualified Code(s): E78.5 - Hyperlipidemia, unspecified
[2020-12-26] MEDS ORDERED: HEPARIN (PORCINE) 1000 UNIT/ML 10 ML (CATH LAB USE ONLY) ONE (11:50)
[2020-12-26] MEDS ORDERED: MIDAZOLAM HCL 1 MG/ML 2ML VIAL ONE ×2 (11:50→12:36)
[2020-12-26] MEDS ORDERED: fentaNYL citrate 100 MCG/2 ML VIAL ONE ×2 (11:50→12:36)
[2020-12-26] MEDS ORDERED: niCARdipine HCL INJ 2.5 MG/ML 10 ML AMP ONE (11:50)
[2020-12-26] MEDS ORDERED: NITROGLYCERIN/D5W 100MCG/ML 20ML SYR ONE (11:52)
--- NOTE | 2020-12-26 12:07 | Cardiac Catheterization ---
[facility] Data: Lump Room Supervisor Cardiac Status Clinical evaluation leading to the procedure CAD Presenation: Positive Stress Test and Unstable angina Anginal Classification: CCS IV Heart Failure: No Cardiogenic Shock within 24 Hours: No Cardiac Arrest within 24 Hours: No Imaging Studies Past 6 Months: Yes Stress Studies Past 6 Months: Yes Stress Testing w/SPECT MPI: Yes - Positive and Risk/Extent of Ischemia (Intermediate) Diagnostic Physicians Name: Wilson Akers MD Status: Elective Closure Device Percutaneous Entry Location: Radial Closure Device: Radial Band Recommendations: PCI without planned CABG PCI Indication: + Stress Test and Unstable Angina Lesion Segment Name: Earlymid RCA Culprit Artery: Yes Stenosis Prior to Rx (%): 90 Chronic Total Occlusion: No IVUS: No FFR: No Previously Treated Lesion: No Lesion Complexity: Non-High/Non-C Lesion Length (mm): 15 Thrombus Present: No Bifurcation Lesion: No Guidewire Across Lesion: Stenosis Post-Procedure (%): 0 Post-Procedure YULY Flow: 3 Devices(s) Deployed: Yes Yes Intraprocedure Events Significant Disection: No Perforation: No Cardiac Cath Procedure Full Procedure Date December 26, 2020 Pre-Procedure Diagnosis Pre-Procedure Diagnosis: Acute Coronary Syndrome AUC Score AUC Score: 7 Post-Procedure Diagnosis Post-Procedure Diagnosis: Severe CAD, Successful PCI and Normal Intracardiac Pressures Procedure(s) Performed Procedure(s) Performed: Coronary Angiography, Left Heart Cath and Drug Eluting Stent Orthotic Technician Wilson Akers MD Creel Hand(s) Amaya Estimated Blood Loss Estimated Blood Loss: 10 Medication(s) Medication(s): Clopidogrel, Fentanyl, Heparin, Lidocaine 1%, Nicardipine, Nitroglycerin and Versed Summary of Findings Indication: Unstable angina Access: 6 Fr right radial artery Catheters: [place], JR4 guide Findings: LM -normal caliber, long vessel without significant disease LAD -medium caliber, 60 to 70% mid diffuse in-stent restenosis, distal vessel small with diffuse disease as wraps around apex. D1 with 40% proximal stenosis extending into prior stent. Circumflex -medium caliber, large high OM1 without significant disease. Small AV groove circumflex with diffuse luminal irregularities RCA -dominant, large caliber vessel, 90% earlymid segment stenosis, distal luminal regularities, PDA/PLB without significant disease. LVEDP -9 -- PCI -- Antithrombotic therapy: Heparin, clopidogrel Procedure: RCA cannulated with JR4 guide Chemical Dependency Counselor 50 wire passed across lesion into distal vessel Mid RCA lesion predilated with 2.5 compliant balloon Dilated lesion stented with 3.5 x 18 mm [place] drug-eluting stent Stent post-dilated with 3.5 noncompliant balloon IC vasodilators administered for spasm Post procedure YULY 3 flow, stent well expanded with minimal residual stenosis and no apparent cardiac complications. Arterial Closure: TR band Summary: 1. Multi-vessel coronary artery disease -90% earlymid RCA stenosis 60 to 70% mid LAD in-stent restenosis. D1 stent patent with 40% proximal restenosis 2. Normal intracardiac filling pressure 3. Successful PCI of proximal to mid RCA with single drug-eluting stent (3.5 x 18 mm Levar). Recommendations: To PCU for continued monitoring Can discontinue heparin infusion Loaded with clopidogrel 600 mg in Lump Room Supervisor Continue dual-antiplatelet therapy for at least 1 year Consult cardiac Rehab Plan for staged PCI of LAD tomorrow in the setting of positive stress test with apical ischemia. Hemodynamics Rest Ao:: 154/81/107 Final Ao: 132/84/104 LV: 146/9 Recommendations Recommendations: PCI without planned CABG Specimens Specimens: None Radiation Exposure (mGy) 1609 Contrast (mls) 70 Anesthesia moderate Procedural Complication(s) None Disposition PCU I attest to the content of the Intraoperative Record and any orders documented therein. Any exceptions are noted below. [facility] Card Cath Procedure Codes Cardiac Catheterization Procedure 1: Cardiovascular Cath Procedures: 49458 Coronaries and LHC (+/-LV) Moderate Sedation Procedure 1: Sedation/Anesthesia: 01412 Mod Sedation by the same physician;Init15 Min Child Age 5 & Up Procedure 2: Sedation/Anesthesia: 24895 Mod Sedation by the same physician; Ea [id number] Minutes Stenting Procedure 1: Cardiovascular Stent Procedures: 29144 Perc transcatheter placement of intracoronary stent(s), with ang PG Care Time/CCT Total # of Minutes Spent Total Time Spent with Patient: Total time spent is greater than 50% in coordination of care (as documented) at patient's floor/unit and/or counseling patient:
--- NOTE | 2020-12-26 12:07 | Pre Anesthesia Assessment ---
Date of Service December 26, 2020 Pre Sedation Assessment Vital Signs Temp Pulse Pulse Resp BP BP Pulse Ox 12/26/20 11:40 67 17 135/94 96 12/26/20 08:09 63 12/26/20 06:24 97.9 F 62 17 121/73 95 12/26/20 04:29 97.9 F 65 17 117/75 92 12/26/20 00:37 69 112/77 12/26/20 00:10 98.4 F 91 H 18 123/80 97 12/25/20 23:03 70 12/25/20 20:22 98.4 F 75 18 145/88 H 95 12/25/20 19:15 98.6 F 77 16 160/93 H 98 12/25/20 17:30 68 12 133/92 95 12/25/20 16:30 79 11 L 158/108 H 95 12/25/20 16:00 66 11 L 146/94 H 96 12/25/20 15:32 67 19 128/84 96 12/25/20 15:30 76 11 L 147/91 H 96 12/25/20 15:20 68 12 145/92 H 96 12/25/20 15:10 69 12 126/94 97 12/25/20 15:01 68 20 97 12/25/20 15:00 67 18 147/97 H 97 12/25/20 14:40 65 15 132/91 96 12/25/20 14:32 59 L 19 97 12/25/20 14:31 60 15 125/80 95 12/25/20 14:20 61 10 L 144/94 H 98 12/25/20 14:10 56 L 21 143/105 H 97 12/25/20 14:00 63 13 151/90 H 97 12/25/20 13:51 57 L 12 96 12/25/20 13:50 54 L 14 131/86 96 12/25/20 13:40 62 11 L 148/94 H 96 12/25/20 13:35 74 13 141/90 H 93 12/25/20 13:33 74 14 125/84 94 12/25/20 13:31 70 13 125/84 95 12/25/20 13:30 63 14 151/107 H 98 12/25/20 12:45 56 L 14 179/99 H 98 12/25/20 12:30 59 L 15 179/99 H 96 Cardiovascular RRR, no murmur, no edema Respiratory normal respiratory effort, lungs clear to auscultation Pre-Sedation Airway Assessment Smoking Status: Never smoker Hx Sleep Apnea: No Hx Difficult Intubation: No Short, Thick Neck: No Thyromental Distance: > or= 3.5 Finger Breadths Oral Cavity: + WNL Mallampati Class: I ASA: ASA3 NPO Status Date of Last Intake of Fluids: 12/25/20 Time of Last Intake of Fluids: 19:00 Date of Last Intake of Solid Food: 12/25/20 Time of Last Intake of Solid Foods: 19:00 Procedure Planning Contraindications for Sedation: none Current Medications Reviewed: Yes Notes The planned sedation has been discussed with the patient. Informed Consent was obtained. I have identified the patient, determined the appropriateness of sedation and have assessed the patient immediately prior to the procedure. All medicine(s) and interventions are by my order.
[2020-12-26] MEDS ORDERED: CLOPIDOGREL BISULFATE 300 MG TAB ONE (13:06)
--- NOTE | 2020-12-26 13:23 | Electrocardiogram Report ---
Test Reason : Blood Pressure : / mmHG Vent. Rate : 072 BPM Atrial Rate : 072 BPM P-R Int : 238 ms QRS Dur : 084 ms QT Int : 406 ms P-R-T Axes : 042 -50 058 degrees QTc Int : 444 ms Sinus rhythm with 1st degree A-V block Left axis deviation Abnormal ECG When compared with ECG of 25-DEC-2020 10:55, No significant change was found Confirmed by Usman Silva ([id number]) on 12/26/2020 1:23:15 PM Referred By: REFERRED SELF Confirmed By:Usman Silva
--- NOTE | 2020-12-26 13:40 | Post Anesthesia Assessment ---
Date of Service December 26, 2020 Post Sedation Assessment Vital Signs Temp Pulse Pulse Resp BP BP Pulse Ox 12/26/20 13:25 65 18 141/89 H 95 12/26/20 13:20 66 18 122/95 95 12/26/20 13:15 66 18 130/80 95 12/26/20 13:10 78 18 122/95 95 12/26/20 11:40 67 17 135/94 96 12/26/20 08:09 63 12/26/20 06:24 97.9 F 62 17 121/73 95 12/26/20 04:29 97.9 F 65 17 117/75 92 12/26/20 00:37 69 112/77 12/26/20 00:10 98.4 F 91 H 18 123/80 97 12/25/20 23:03 70 12/25/20 20:22 98.4 F 75 18 145/88 H 95 12/25/20 19:15 98.6 F 77 16 160/93 H 98 12/25/20 17:30 68 12 133/92 95 12/25/20 16:30 79 11 L 158/108 H 95 12/25/20 16:00 66 11 L 146/94 H 96 12/25/20 15:32 67 19 128/84 96 12/25/20 15:30 76 11 L 147/91 H 96 12/25/20 15:20 68 12 145/92 H 96 12/25/20 15:10 69 12 126/94 97 12/25/20 15:01 68 20 97 12/25/20 15:00 67 18 147/97 H 97 12/25/20 14:40 65 15 132/91 96 12/25/20 14:32 59 L 19 97 12/25/20 14:31 60 15 125/80 95 12/25/20 14:20 61 10 L 144/94 H 98 12/25/20 14:10 56 L 21 143/105 H 97 12/25/20 14:00 63 13 151/90 H 97 12/25/20 13:51 57 L 12 96 12/25/20 13:50 54 L 14 131/86 96 Recovery Score Activity: Moves 4 extremities Respiration: Deep Breath/Cough Circulation: +/-20% PreAnes Value Consciousness: Fully Awake Oxygen Saturation: > 92% On Room Air Post Anesthesia Score: 10 Discharge Sedation Level of Care: Fast Track Phase II Post Sedation Plan On clinical assessment, the patient appears to have tolerated the sedation without complications. Patient is recovering as anticipated. Patient will continue to be monitored by nursing and may be discharged when sedation discharge criteria are met per below protocol. Upon Completions of procedure up to 15 minutes continue every 5 minute vital signs and the P.A.R. score; then discharge to a Phase I or Fast Track to Phase II per the following guidelines: * Discharge Patient to appropriate Phase II area if PAR is 8 or greater or return to pre- procedure baseline. The post - procedure orders will be as directed. * If PAR score is less than 8 or not return to pre-procedure baseline then patient will follow Phase I monitoring till PAR is reached for Phase II. The Phase I may be done in procedure room or may call to secure a Phase I area. * If naloxone or flumazenil are used for reversal, hold in Phase I for continued monitoring from when last reversal dose was given for a minimum of 60 minutes or longer pending the nurse and/or physician discretion of patient condition before discharge to Phase II. Please call the Sedation Physician to re-evaluate and complete post-note for discharge to Phase II area. Do NOT discharge from procedure sedation or Phase 1 until post- sedation evaluation note is complete by procedure /sedation MD Sedation Discharge Instructions to be given to the patient at discharge to home.
[2020-12-26] MEDS ORDERED: SODIUM CHLORIDE 0.9% 1000ML 1,000 ML IV SCH (13:45)
--- NOTE | 2020-12-26 14:28 | Electrocardiogram Report ---
Test Reason : Blood Pressure : / mmHG Vent. Rate : 070 BPM Atrial Rate : 070 BPM P-R Int : 248 ms QRS Dur : 080 ms QT Int : 402 ms P-R-T Axes : 040 -47 038 degrees QTc Int : 434 ms Sinus rhythm with 1st degree A-V block Low voltage QRS Left anterior fascicular block Inferior infarct , age undetermined Abnormal ECG When compared with ECG of 26-DEC-2020 00:33, No significant change was found Confirmed by Usman Silva ([id number]) on 12/26/2020 2:27:51 PM Referred By: REFERRED SELF Confirmed By:Usman Silva
--- NOTE | 2020-12-26 16:21 | Hospitalist Progress Note ---
Date of Service December 26, 2020 Assessment & Plan (1) Angina pectoris, unstable: Serial troponin negative for myocardial ischemia, however given chest pain-free after cardiac catheterization and successful PCI this is supportive of unstable angina diagnosis. s/p cardiac catheterization with successful PCI and drug-eluting stent placed to proximal to mid RCA. Planning for staged PCI to LAD tomorrow. N.p.o. after midnight Continue aspirin, clopidogrel, rosuvastatin. Cardiac rehab after discharge. Appreciate cardiology management. (2) Hyperlipidemia: Per , patient was previously on Crestor but he been noncompliant with this. [facility] Patient reports previous intolerance to statins with joint/muscle aches. Discussed if having muscle/joint aches with rosuvastatin recommend PCSK9 inhibitor to start as an outpatient. (3) CAD (coronary artery disease): As above (4) History of CVA (cerebrovascular accident): Prior history of TPA in 2017. Acute left basilar infarct 2019. No residual symptoms. (5) Autoimmune hepatitis: Remote history of such, possible PBC. Previously on Imuran then CellCept. No current issues. Previously followed at [facility]. LFTs WNL Admission and Anticipated Discharge Date Admission Date: December 25, 2020 Subjective Patient seen s/p cardiac catheterization. He reported having ongoing chest pain overnight prior to cardiac catheterization. No chest pain after cardiac catheterization. Right radial TR band in place without hematoma. No shortness of breath, claudication, palpitations, orthopnea or PND. Diagnosed with multivessel coronary artery disease during cardiac cath. Successful PCI to proximal to mid RCA with a single drug-eluting stent. Planning on repeat cardiac catheterization tomorrow of LAD in the setting of pos itive stress test with apical ischemia. Review of Systems Review of Systems: All systems reviewed & are unremarkable except as noted in HPI & below Physical Exam Constitutional: well developed, well nourished and comfortable; no acute distress Eyes: + anicteric sclerae; normal pupil size Neck: trachea midline, no thyromegaly Respiratory: normal respiratory effort, lungs clear to auscultation Cardiovascular: RRR, no murmur, no edema Vessels: no JVD Gastrointestinal (Abdomen): normal bowel sounds, soft, nontender, no hepatosplenomegaly Musculoskeletal: no cyanosis or clubbing, extremities motor strength 5/5 Skin: no rashes, warm and dry Neurologic: moves all extremities and awake; no focal motor deficits and not confused Cranial Nerves: normal facial strength Psychiatric: A+Ox3, euthymic affect Results & Data Results & Data ([facility]) Vital Signs (Past 12 Hours) Vital Signs Temp Pulse Pulse Resp BP Pulse Ox 12/26/20 16:05 66 12/26/20 15:45 78 15 132/77 95 12/26/20 15:31 79 16 134/80 93 12/26/20 14:15 70 18 141/84 H 94 12/26/20 14:10 70 20 141/84 H 94 12/26/20 13:59 74 18 149/90 H 95 12/26/20 13:55 74 20 149/90 H 95 12/26/20 13:44 70 12/26/20 13:40 36.8 C 67 18 145/83 H 93 12/26/20 13:25 65 18 141/89 H 95 12/26/20 13:20 66 18 122/95 95 12/26/20 13:15 66 18 130/80 95 12/26/20 13:10 78 18 122/95 95 12/26/20 11:40 67 17 135/94 96 12/26/20 08:09 63 12/26/20 06:24 36.6 C 62 17 121/73 95 12/26/20 04:29 36.6 C 65 17 117/75 92 PG Care Time/CCT Total # of Minutes Spent Total Time Spent with Patient: Total time spent is greater than 50% in coordination of care (as documented) at patient's floor/unit and/or counseling patient: Coding Level of Care Code 49774 Subseq Hosp Care Lvl 2 Diagnoses Angina pectoris, unstable I20.0 Hyperlipidemia E78.5 Hyperlipidemia type: unspecified CAD (coronary artery disease) I25.10 Associated angina: without angina Coronary Disease-Associated Artery/Lesion type: [place] artery [place] vs. transplanted heart: [place] heart History of CVA (cerebrovascular accident) Z86.73 Autoimmune hepatitis K75.4 (1) CAD (coronary artery disease) Associated angina: without angina Coronary Disease-Associated Artery/Lesion type: [place] artery [place] vs. transplanted heart: [place] heart Qualified Code(s): I25.10 - Atherosclerotic heart disease of [place] coronary artery without angina pectoris (2) Hyperlipidemia Hyperlipidemia type: unspecified Qualified Code(s): E78.5 - Hyperlipidemia, unspecified
[2020-12-26] MEDS ORDERED: CETIRIZINE HCL 10 MG TABLET PO ONE (20:11)
[2020-12-26] MEDS: PANTOprazole 40 MG TAB PO SCH (20:33)
[2020-12-26] MEDS: ASPIRIN 81 MG ECTAB PO SCH (20:34)
[2020-12-26] MEDS: ROSUVASTATIN CALCIUM 20 MG TAB PO SCH (20:34)
[2020-12-27 07:29] LABS: Partial Thromboplastin Time 27.1 Seconds (21.0-31.0)
[2020-12-27] MEDS: GABAPENTIN 100 MG CAP PO SCH ×2 (07:31→14:46)
--- NOTE | 2020-12-27 08:14 | Pre Anesthesia Assessment ---
Date of Service December 27, 2020 Pre Sedation Assessment Vital Signs Temp Pulse Pulse Resp BP BP Pulse Ox 12/27/20 07:49 145/91 H 95 12/27/20 07:45 66 12/27/20 07:36 97.0 F L 74 19 142/82 H 92 12/27/20 03:55 99.0 F 62 16 127/71 96 12/26/20 23:59 81 12/26/20 19:39 98.6 F 84 16 146/81 H 96 12/26/20 18:50 93 H 16 122/79 93 12/26/20 17:58 86 127/75 94 12/26/20 16:21 98.6 F 77 20 127/80 96 12/26/20 16:05 66 12/26/20 15:50 78 20 132/77 95 12/26/20 15:45 78 15 132/77 95 12/26/20 15:31 79 16 134/80 93 12/26/20 14:15 70 18 141/84 H 94 12/26/20 14:10 70 20 141/84 H 94 12/26/20 13:59 74 18 149/90 H 95 12/26/20 13:55 74 20 149/90 H 95 12/26/20 13:44 70 12/26/20 13:40 98.2 F 67 18 145/83 H 93 12/26/20 13:25 65 18 141/89 H 95 12/26/20 13:20 66 18 122/95 95 12/26/20 13:15 66 18 130/80 95 12/26/20 13:10 78 18 122/95 95 12/26/20 11:40 67 17 135/94 96 Cardiovascular RRR, no murmur, no edema Respiratory normal respiratory effort, lungs clear to auscultation Pre-Sedation Airway Assessment Smoking Status: Never smoker Hx Sleep Apnea: No Hx Difficult Intubation: No Short, Thick Neck: No Thyromental Distance: > or= 3.5 Finger Breadths Oral Cavity: + WNL Mallampati Class: III ASA: ASA3 NPO Status Date of Last Intake of Fluids: 12/27/20 Time of Last Intake of Fluids: 19:00 Date of Last Intake of Solid Food: 12/26/20 Time of Last Intake of Solid Foods: 19:00 Procedure Planning Contraindications for Sedation: none Current Medications Reviewed: Yes Notes The planned sedation has been discussed with the patient. Informed Consent was obtained. I have identified the patient, determined the appropriateness of sedation and have assessed the patient immediately prior to the procedure. All medicine(s) and interventions are by my order.
[2020-12-27] MEDS ORDERED: niCARdipine HCL INJ 2.5 MG/ML 10 ML AMP ONE (08:24)
[2020-12-27] MEDS ORDERED: MIDAZOLAM HCL 1 MG/ML 2ML VIAL ONE (08:24)
[2020-12-27] MEDS ORDERED: fentaNYL citrate 100 MCG/2 ML VIAL ONE (08:24)
[2020-12-27] MEDS ORDERED: HEPARIN (PORCINE) 1000 UNIT/ML 10 ML (CATH LAB USE ONLY) ONE (08:24)
[2020-12-27] MEDS ORDERED: NITROGLYCERIN/D5W 100MCG/ML 20ML SYR ONE (08:25)
[2020-12-27] MEDS ORDERED: CLOPIDOGREL BISULFATE 300 MG TAB ONE (08:57)
[2020-12-27] MEDS ORDERED: CLOPIDOGREL BISULFATE 75 MG TAB PO SCH (09:00)
--- NOTE | 2020-12-27 09:02 | Post Anesthesia Assessment ---
Date of Service December 27, 2020 Post Sedation Assessment Vital Signs Temp Pulse Pulse Resp BP BP Pulse Ox 12/27/20 07:49 145/91 H 95 12/27/20 07:45 66 12/27/20 07:36 97.0 F L 74 19 142/82 H 92 12/27/20 03:55 99.0 F 62 16 127/71 96 12/26/20 23:59 81 12/26/20 19:39 98.6 F 84 16 146/81 H 96 12/26/20 18:50 93 H 16 122/79 93 12/26/20 17:58 86 127/75 94 12/26/20 16:21 98.6 F 77 20 127/80 96 12/26/20 16:05 66 12/26/20 15:50 78 20 132/77 95 12/26/20 15:45 78 15 132/77 95 12/26/20 15:31 79 16 134/80 93 12/26/20 14:15 70 18 141/84 H 94 12/26/20 14:10 70 20 141/84 H 94 12/26/20 13:59 74 18 149/90 H 95 12/26/20 13:55 74 20 149/90 H 95 12/26/20 13:44 70 12/26/20 13:40 98.2 F 67 18 145/83 H 93 12/26/20 13:25 65 18 141/89 H 95 12/26/20 13:20 66 18 122/95 95 12/26/20 13:15 66 18 130/80 95 12/26/20 13:10 78 18 122/95 95 12/26/20 11:40 67 17 135/94 96 Recovery Score Activity: Moves 4 extremities Respiration: Deep Breath/Cough Circulation: +/-20% PreAnes Value Consciousness: Fully Awake Oxygen Saturation: > 92% On Room Air Post Anesthesia Score: 10 Discharge Sedation Level of Care: Fast Track Phase II Post Sedation Plan On clinical assessment, the patient appears to have tolerated the sedation without complications. Patient is recovering as anticipated. Patient will continue to be monitored by nursing and may be discharged when sedation discharge criteria are met per below protocol. Upon Completions of procedure up to 15 minutes continue every 5 minute vital signs and the P.A.R. score; then discharge to a Phase I or Fast Track to Phase II per the following guidelines: * Discharge Patient to appropriate Phase II area if PAR is 8 or greater or return to pre- procedure baseline. The post - procedure orders will be as directed. * If PAR score is less than 8 or not return to pre-procedure baseline then patient will follow Phase I monitoring till PAR is reached for Phase II. The Phase I may be done in procedure room or may call to secure a Phase I area. * If naloxone or flumazenil are used for reversal, hold in Phase I for continued monitoring from when last reversal dose was given for a minimum of 60 minutes or longer pending the nurse and/or physician discretion of patient condition before discharge to Phase II. Please call the Sedation Physician to re-evaluate and complete post-note for discharge to Phase II area. Do NOT discharge from procedure sedation or Phase 1 until post- sedation evaluation note is complete by procedure /sedation MD Sedation Discharge Instructions to be given to the patient at discharge to home.
[2020-12-27] MEDS ORDERED: SODIUM CHLORIDE 0.9% 1000ML 1,000 ML IV SCH (09:15)
--- NOTE | 2020-12-27 09:15 | Cardiac Catheterization ---
ACC Data: Qm Nurse Cardiac Status Clinical evaluation leading to the procedure CAD Presenation: Unstable angina Anginal Classification: CCS III Heart Failure: No Cardiogenic Shock within 24 Hours: No Cardiac Arrest within 24 Hours: No Imaging Studies Past 6 Months: Yes Stress Studies Past 6 Months: No Diagnostic Physicians Name: Wilson Akers MD Status: Elective Closure Device Percutaneous Entry Location: Radial Closure Device: Radial Band Recommendations: PCI without planned CABG PCI Indication: Staged PCI Lesion Segment Name: mid LAD Culprit Artery: No Stenosis Prior to Rx (%): 70 Chronic Total Occlusion: No IVUS: No FFR: No Pre-Procedure YULY Flow: 3 Previously Treated Lesion: Timeframe: greater than 2 years Treated with Stent: Yes In-Stent Restenosis: Yes Stent Type: ROLLY Yes Lesion Complexity: Non-High/Non-C Lesion Length (mm): 15 Thrombus Present: No Bifurcation Lesion: No Guidewire Across Lesion: Stenosis Post-Procedure (%): 0 Post-Procedure YULY Flow: 3 Devices(s) Deployed: Yes Yes Intraprocedure Events Significant Disection: No Perforation: No Cardiac Cath Procedure Full Procedure Date December 27, 2020 Pre-Procedure Diagnosis Pre-Procedure Diagnosis: Acute Coronary Syndrome AUC Score AUC Score: 7 Post-Procedure Diagnosis Post-Procedure Diagnosis: Severe CAD, Successful PCI and Normal Intracardiac Pressures Procedure(s) Performed Procedure(s) Performed: Coronary Angiography, Left Heart Cath and Drug Eluting Stent Boiler Tender Wilson Akers MD Brimming Machine Operator(s) Carissa Estimated Blood Loss Estimated Blood Loss: 10 Medication(s) Medication(s): Clopidogrel, Fentanyl, Heparin, Lidocaine 1%, Nicardipine, Nitroglycerin and Versed Summary of Findings Indication: Staged PCI of LAD in-stent restenosis. Post prior PCI to early-mid RCA yesterday in the setting of unstable angina. Access: 6 Fr right radial artery Catheters: EBU 3.5 guide Findings: LM -normal caliber, long vessel without significant disease LAD -medium caliber, 60 to 70% mid diffuse in-stent restenosis, distal vessel small with diffuse disease as wraps around apex. D1 with 40% proximal stenosis extending into prior stent. Circumflex -medium caliber, large high OM1 without significant disease. Small AV groove circumflex with diffuse luminal irregularities RCA -not visualized - see cath report from 12/26/2020 for details -- PCI -- Antithrombotic therapy: Heparin, clopidogrel Procedure: Left main cannulated with EBU3.5 guide Payment Rep 50 wire passed across lesion into distal vessel LAD in-stent restenosis predilated with 2.0 compliant balloon New stent (2.5 x 26mm Alba) placed to mid LAD just distal to diagonal overlapping entire length of prior stent. Stent post-dilated with 2.75 noncompliant balloon IC vasodilators administered for spasm Post procedure YULY 3 flow, stent well expanded with minimal residual stenosis and no apparent cardiac complications. Arterial Closure: TR band Summary: 1. Successful PCI of mid LAD in-stent restenosis with single drug-eluting stent overlapping entire prior stent (2.5 x 26 mm Alba; post-dilated with 2.75 NC). Recommendations: To PCU for continued monitoring Reloaded with clopidogrel 300 mg in Qm Nurse Continue dual-antiplatelet therapy for at least 1 year Consult cardiac Rehab If stable post-procedure could be potentially discharged later this afternoon. Hemodynamics Rest Ao:: 98/68/82 Final Ao: 114/74/92 LV: -- Recommendations Recommendations: PCI without planned CABG Specimens Specimens: None Radiation Exposure (mGy) 1603 Contrast (mls) 45 Fluids (cc crystalloids) Fluids (cc crystalloids): 100 Drains Drains: none Anesthesia moderate 3226-1387 Procedural Complication(s) None Disposition PCU I attest to the content of the Intraoperative Record and any orders documented therein. Any exceptions are noted below. [facility] Card Cath Procedure Codes Moderate Sedation Procedure 1: Sedation/Anesthesia: 21636 Mod Sedation by the same physician;Init15 Min Child Age 5 & Up Procedure 2: Sedation/Anesthesia: 06667 Mod Sedation by the same physician; Ea [id number] Minutes Stenting Procedure 1: Cardiovascular Stent Procedures: 74549 Perc transcatheter placement of intracoronary stent(s), with ang PG Care Time/CCT Total # of Minutes Spent Total Time Spent with Patient: Total time spent is greater than 50% in coordination of care (as documented) at patient's floor/unit and/or counseling patient:
--- NOTE | 2020-12-27 12:45 | XCELERA ---
[id number]
--- NOTE | 2020-12-27 13:09 | Cardiology Progress Note ---
Date of Service December 27, 2020 Assessment & Plan (1) Angina pectoris, unstable: -cardiac catheterization yesterday revealed a culprit lesion in the mid RCA. -3.5 x 18 mm Levar ROLLY placed at that location yesterday. -70% in stent restenosis, mid LAD. -2.5 x 26 mm Levar placed within the entire LAD stent as a staged procedure today. -patent D1 stent with a 40% stenosis just proximal. (2) CAD (coronary artery disease): -as above, LAD and D1 stents placed in 2011, [place], [place]. (3) Hyperlipidemia: -LDL cholesterol elevated 128. -would increase dose of Crestor. (4) Atrial fibrillation: -status post radiofrequency ablation in 2006. -not currently on long-term anticoagulation. Admission and Anticipated Discharge Date Admission Date: December 25, 2020 Subjective The patient is resting comfortably in bed without complaints of chest pain. Feels that his dyspnea has improved since the initial stent was placed. Physical Exam Physical Exam: In general this is a well-developed well-nourished white male in no acute distress. HEENT exam is negative. Neck is supple with full carotid upstrokes. There are no carotid bruits. Jugular venous pressure is flat at 90. There is no thyromegaly. Cardiovascular exam reveals a regular rhythm with a normal S1 and S2. No S3, S4, or murmurs are noted. Lungs are clear without rales, rhonchi, or wheezes. Abdomen is soft and nontender without bruits. Extremities reveal a dressing on the right wrist. There is no peripheral edema. Results & Data ([facility]) Vital Signs (Past 12 Hours) Vital Signs Temp Pulse Pulse Resp BP BP Pulse Ox 12/27/20 10:31 36.8 C 88 18 143/82 H 96 12/27/20 10:01 92 H 12/27/20 09:46 74 20 142/82 H 98 12/27/20 09:31 37 C 64 20 142/91 H 97 12/27/20 09:22 68 16 139/86 96 12/27/20 09:09 73 16 119/82 96 12/27/20 07:49 145/91 H 95 12/27/20 07:45 66 12/27/20 07:36 36.1 C L 74 19 142/82 H 92 12/27/20 03:55 37.2 C 62 16 127/71 96 PG Care Time/CCT Total # of Minutes Spent Total Time Spent with Patient: Total time spent is greater than 50% in coordination of care (as documented) at patient's floor/unit and/or counseling patient: Coding Level of Care Code 82529 Subseq Hosp Care Lvl 3 Diagnoses Angina pectoris, unstable I20.0 CAD (coronary artery disease) I25.10 Coronary Disease-Associated Artery/Lesion type: [place] artery [place] vs. transplanted heart: [place] heart Associated angina: without angina Hyperlipidemia E78.5 Hyperlipidemia type: unspecified Atrial fibrillation I48.91 (1) CAD (coronary artery disease) Coronary Disease-Associated Artery/Lesion type: [place] artery [place] vs. transplanted heart: [place] heart Associated angina: without angina Qualified Code(s): I25.10 - Atherosclerotic heart disease of [place] coronary artery without angina pectoris (2) Hyperlipidemia Hyperlipidemia type: unspecified Qualified Code(s): E78.5 - Hyperlipidemia, unspecified
--- NOTE | 2020-12-27 13:47 | Electrocardiogram Report ---
Test Reason : Blood Pressure : / mmHG Vent. Rate : 074 BPM Atrial Rate : 074 BPM P-R Int : 240 ms QRS Dur : 082 ms QT Int : 380 ms P-R-T Axes : 045 -65 040 degrees QTc Int : 421 ms Sinus rhythm with 1st degree A-V block Left anterior fascicular block Abnormal ECG When compared with ECG of 26-DEC-2020 13:27, No significant change was found Confirmed by Usman Silva ([id number]) on 12/27/2020 1:47:33 PM Referred By: REFERRED SELF Confirmed By:Usman Silva
[2020-12-27] MEDS ORDERED: METOPROLOL TARTRATE 25 MG TAB PO STA (16:28)
--- NOTE | 2021-01-03 13:21 | Discharge Summary ---
Date of Service December 27, 2020 Admission HPI Per Admitting Provider This is a 65-year-old male with past medical history of previous CVA, hyperlipidemia that presents today complaining of chest pain. Patient is accompanied by both are good historians. Patient states that his chest pain started early Friday morning, 12/19. At that time he described the pain as substernal/left-sided with radiation to the left arm. There is no radiation of the jaw. He noted mild shortness of breath but worsening dyspnea on exertion. He had no palpitations or diaphoresis. He called EMS and at that time was taken to [facility]. He had a stress test which was abnormal with normal rest images and a small amount of apical ischemia. He was offered cardiac catheterization there but elected to get this done as an outpatient. He was subsequently discharged and has an appointment with the [facility] cardiology group on 01/03. Patient tells us however that the pain never fully subsided and is once again even worse. He is again noting worsening dyspnea on exertion. Patient pres ented to our facility after discussing with his primary care physician as he feels that he cannot wait until his cardiology appointment. At the time my evaluation, patient was stable and no acute distress. He did describe some the pain. at bedside states that he typically follows at the [facility], was recently diagnosed with hypertriglyceridemia and was started on Pravachol. Also noted the patient had previously had a CVA in June 2020. Admission Exam Per Admitting Provider Constitutional: well nourished, cooperative and comfortable; no acute distress Neck: trachea midline, no thyromegaly Respiratory: normal respiratory effort, lungs clear to auscultation Auscultation: lungs clear to auscultation bilaterally Cardiovascular: RRR, no murmur, no edema Rate/Rhythm: regular rate and regular rhythm Vessels: no JVD and no carotid bruit Gastrointestinal (Abdomen): normal bowel sounds, soft, nontender, no h epatosplenomegaly Percussion/Palpation: abdomen nontender, no guarding, abdomen not rigid and + abdomen not soft Musculoskeletal: no cyanosis or clubbing, extremities motor strength 5/5 Skin: no rashes, warm and dry Principal Diagnosis Unstable Angina Coronary artery disease Discharge Exam Constitutional well developed, well nourished and comfortable; no acute distress Eyes + anicteric sclerae; normal pupil size Neck trachea midline, no thyromegaly Respiratory normal respiratory effort, lungs clear to auscultation Cardiovascular RRR, no murmur, no edema Vessels: no JVD Gastrointestinal (Abdomen) normal bowel sounds, soft, nontender, no hepatosplenomegaly Musculoskeletal no cyanosis or clubbing, extremities motor strength 5/5 Skin no rashes, warm and dry Neurologic moves all extremities and awake; no focal motor deficits and not confused Cranial Nerves: normal facial strength Psychiatric A+Ox3, euthymic affect Discharge Data Allergies Allergy/AdvReac Type Severity Reaction Status Date / Time morphine AdvReac Unknown vomiting Unverified 12/25/20 11:50 Consultations 12/25/20 14:13 ED Decision to Admit Stat 12/25/20 18:33 Consult Cardiology Routine 12/26/20 13:42 Consult Cardiac Rehabilitation Routine Procedures Performed Operation Date: 12/26/20 11:30 Actual Procedures p Drug Eluting Stent SGl Vessel - Nick Akers MD s Cineradiography w/Routine Exam - Nick Akers MD p Cath, Left with Cors and Vent - Nick Akers MD Operation Date: 12/27/20 08:00 Actual Procedures p Drug Eluting Stent SGl Vessel - Nick Akers MD s Cineradiography w/Routine Exam - Nick Akers MD Ordered Studies 12/26/20 11:57 CL Cath Imgs for PACS use only Routine 12/27/20 06:55 CL Cath Imgs for PACS use only Stat Hospital Course (1) Angina pectoris, unstable: Faraz Han is a 65 year old male admitted to [facility] from December 25 to 2020 due to episodic chest pain at rest and abnormal nuclear medicine stress test suggestive of unstable angina. Cardiac catheterization was performed on December 26 showing multivessel coronary artery disease with culprit vessel 90% stenosis of the right coronary artery (RCA) with successful percutaneous coronary intervention with a single drug-eluting stent to this area performed by Dr. Akers. This appeared to have a relieving effect on your chest discomfort therefore confirming diagnosis of unstable angina. Given additional re-in-stent stenosis of the mid left anterior descending (LAD) he underwent staged cardiac catheterization on December 27 with successful percutaneous coronary intervention with single drug-eluting stent overlapping the entire prior stent. Please see below for post cardiac catheterization disch arge instructions. He was started on aspirin, clopidogrel (Plavix), metoprolol and rosuvastatin for treatment of your coronary artery disease. Dual antiplatelet therapy should be continued for at least 1 year. Will consult cardiac rehabilitation to enable safe return to full exercise. Please follow-up with cardiology as previously arranged (see appointment below). (2) Hyperlipidemia: (3) CAD (coronary artery disease): (4) History of CVA (cerebrovascular accident): (5) Autoimmune hepatitis: Total Time Total Time Spent Total Time Spent (In Minutes): 40 Total Time Includes: Examination of the Patient, Discharge Planning, Medication Reconciliation and Communication With Other Providers Discharge Plan Discharge Items Patient Disposition: Home - Self-Care Reason For Visit: CHEST PAIN Discharge Diagnosis: Unstable Angina Coronary artery disease Activity: Per Instructions section Non-emergency contact: Bench Worker Apprentice Call non-emergency contact if: you have any medication questions and your symptoms worsen Follow-up/Referrals: Earle Garza MD [Physician] - 01/04/21 3:15 pm Ashley Ross PA-C [Primary Care Provider] - Diet: Heart Healthy Addtl Attending Provider Instructions: You were admitted to [facility] from December 25 10/27/2020 due to episodic chest pain at rest and abnormal nuclear medicine stress test suggestive of unstable angina. Cardiac catheterization was performed on December 26 showing multivessel coronary artery disease with culprit vessel 90% stenosis of the right coronary artery (RCA) with successful percutaneous coronary intervention with a single drug-eluting stent to this area performed by Dr. Akers. This appeared to have a relieving effect on your chest discomfort therefore confirming diagnosis of unstable angina. Given additional re-in-stent stenosis of the mid left anterior descending (LAD) he underwent staged cardiac catheterization on December 27 with successful percutaneous coronary intervention with single drug-eluting stent overlapping the entire prior stent. Please see below for post cardiac catheterization discharge instructions. You were started on aspirin, clopidogrel (Plavix), metoprolol and rosuvastatin for treatment of your coronary artery disease. Please continue these medications to avoid thrombus formation in the stents placed. Dual antiplatelet therapy should be continued for at least 1 year. Will consult cardiac rehabilitation to enable safe return to full exercise. Please follow-up with cardiology as previously arranged (see appointment above). Addtl Scientific Publications Editor Provider Instructions: ACTIVITY RECOMMENDATIONS: Excess manipulation of the wrist should be avoided for the next 24-48 hours. * No lifting over 2 pounds (approximately a 1/2 gallon of milk) with the utilized arm for 24 hours. * No strenuous activity such as bowling or tennis for 3 days. * Keep the site of the procedure covered with a bandage for 24 hours. *You may shower the day after the procedure. Do not take a tub bath or submerge the puncture site in water for the next 3 days. *Do not operate any motorized equipment for 3 days. SPECIAL CARE INSTRUCTIONS: The site may be slightly bruised and sore following your procedure. Should any of the following occur, contact the Dr. who performed your procedure. 1. Redness/inflammation, swelling, chills, or fever, or colored drainage at procedure site within 3-7 days after your procedure. 2. Coldness, discoloration, ongoing numbness, severe pain, or swelling. Expect mild tingling of hand and tenderness at the puncture site for up to three days. If this persists beyond three days, or other symptoms develop, notify the Dr. who performed your procedure. BLEEDING: If the procedure site on your wrist begins to bleed, do not panic 1. Place 1 or 2 fingers firmly just slightly above the insertion site to stop the bleeding. You may be able to feel your pulse as you hold pressure. 2. Lift your finger after 5 minutes to see if the bleeding has stopped. 3. Once the bleeding has stopped, gently wipe the wrist area clean with a bandage. * If the bleeding from your wrist does not stop after 10 minutes, or if there is a large amount of bleeding or spurting, call 911 ([address] drive yourself to the hospital). SKIN IRRITATION: * You may experience some redness and/or swelling in the area where radiation was administered. If any skin irritation occurs, please contact your family physician. FOLLOW UP VISIT: Keep any scheduled doctor appointments. Pending Studies at Discharge: No Stand-Alone Forms: My [employer], Smoking Cessation Medications and DC Order Prescriptions: New clopidogrel 75 mg Tablet 75 mg PO QAM Qty: 30 RF: 0 metoprolol tartrate 25 mg tablet 25 mg PO BID Qty: 60 RF: 0 nitroglycerin 0.4 mg tablet, sublingual 0.4 mg sublingual Q5M PRN (Reason: chest pain) Qty: 10 RF: 0 Continued omeprazole 40 mg Capsule,Delayed Release(Dr/Ec) 40 mg PO HS RF: 0 aspirin 81 mg tablet,delayed release (DR/EC) 81 mg PO HS RF: 0 rosuvastatin [Crestor] 20 mg tablet 20 mg PO HS RF: 0 gabapentin 100 mg Capsule 100 mg PO TID RF: 0 Discharge Orders: Discharge Order (Routine); Ordered 12/27/20 Ordered By: Chaim Hoyt/Other Patient Handouts: Unstable Angina, Cardiac Rehabilitation Admission Data Admit Date/Time: 12/25/20 14:55 Attending Provider: Chaim Rosenbaum Admit Provider: Rafa Turpin Primary Care Provider: Ashley Ross Other Providers: Rafa Turpin ; Usman Silva ; [facility] Other Interventions: Discharge Summary Assessment (RN) Last Done: 12/27/20 16:43 Coding Level of Care Code D/C Day Management >30 mins Diagnoses Angina pectoris, unstable I20.0 Hyperlipidemia E78.5 Hyperlipidemia type: unspecified CAD (coronary artery disease) I25.10 Coronary Disease-Associated Artery/Lesion type: [place] artery [place] vs. transplanted heart: de[place] heart Associated angina: without angina History of CVA (cerebrovascular accident) Z86.73 Autoimmune hepatitis K75.4
--- NOTE | 2021-01-12 05:19 | Electrocardiogram Report ---
Test Reason : Blood Pressure : / mmHG Vent. Rate : 068 BPM Atrial Rate : 068 BPM P-R Int : 250 ms QRS Dur : 078 ms QT Int : 406 ms P-R-T Axes : 044 -34 063 degrees QTc Int : 431 ms Sinus rhythm with 1st degree A-V block Left axis deviation Abnormal ECG When compared with ECG of 26-DEC-2020 13:27, No significant change was found Confirmed by Harshad Ca ([id number]) on 01/12/2021 5:19:04 AM Referred By: REFERRED SELF Confirmed By:Harshad Ca
== END 2020-12-27 17:35 | disposition home or self-care (01) | DRG 247 ==
LOC: ED 10:41 → SUATTDRO 14:55 → 2S 14:55